=== PATIENT | female | born 1985 | race Caucasian/White ===

== ENCOUNTER 2019-05-19 12:46 | Emergency (ER) | payer SELFPAY ==
[2019-05-19 12:47] VITALS: BP 132/90; PULSE 118; RESP 18; TEMP 36.3; O2SAT 96; BMI 24.7
--- NOTE | 2019-05-19 13:17 | ED.DCSUM_ITS ---
History of Present Illness Chief Complaint: ETOH Intox Informant: Patient, Family Onset: Today Narrative: Patient here for evaluation for alcohol intoxication. She was brought down by [facility] for evaluation if she would meet criteria. However nursing obtain report stating that she did not meet criteria from [facility]. Patient has been discussing with [facility] for the past 3 days who referred her to [facility]. She states she has relapse for the past 10 days with binging, from beer to vodka. Last drink 45 minutes ago. She is here with her mother. Patient denies any current nausea or vomiting. Denies tremors or sweats. She does not feel nervous or agitated. Denies any auditory or visual hallucinations. No headache. No confusion. She does report that her blood feels like it is going to come out of her body. However does not feel anything crawling on her. She states she has had withdrawal seizures in the past, last time in June. She states that the last time she obtain help from alcohol. Prior similar symptoms: Yes Past Medical History - Allergies and Home Meds Allergies/Adverse Reactions: Allergies No Known Allergies Allergy (Verified 05/19/19 12:49) Primary Care Physician: NOT,DEFINED [NON-STAFF] - Review of Systems General: Denies: Chills, Fever, Sweats Eyes: Denies: Visual changes - bilaterally, Diplopia ENT: Denies: Rhinorrhea, Sore throat Cardiovascular: Denies: Chest pain, Palpitations Respiratory: Denies: Dyspnea, Cough, Dyspnea on exertion Gastrointestinal: Denies: Abdominal pain, Nausea, Vomiting, Diarrhea, Melena, Hematochezia Genitourinary: Denies: Dysuria, Hematuria, Frequency Musculoskeletal: Denies: Back pain, Extremity Pain Skin: Denies: Rash, Wounds Neurological: Denies: Headache, Weakness, Numbness Physical Exam Vital Signs/Narrative: Vital Signs Temp Pulse Resp BP Pulse Ox 05/19/19 12:47 97.4 F L 118 H 18 132/90 H 96 Inital Vital Signs reviewed: Yes General: Well nourished, Well developed, No Acute Distress Head: Normocephalic, Atraumatic Eyes: Perrl, EOMI ENT: Moist mucous membranes, No rhinorrhea Neck: Supple, Nontender Cardiovascular: Regular rate, Regular rhythm, No murmurs, Tachycardia Respiratory: No distress, CTA bilaterally, Chest nontender Abdomen: Soft, Nontender, Nondistended, Normal bowel sounds Back: Nontender, Normal Inspection Extremities: Nontender, No edema Skin: Normal color, No rash Neurological: Alert, Oriented x3, Cranial nerves II-XII grossly intact, Normal Strength, Normal Sensation Psychological: Normal affect, Normal Mood Diagnostic/Tx/Re-eval - Medical Decision Making Patient alert and oriented x3, she is tachycardic. She is not suicidal homicidal. See was score essentially 0. Her last treatment 45 minutes ago. She is alert talking. She is here with her mother. From discussion with nursing, she does not meet criteria for admission from evaluation by rosamaria tineo. Discussed this with mother and patient. She was given recommendations for other facilities that may be able to help her. She will call and follow-up as an outpatient. Discharge with mother. ED Disposition - Plan for ED Patient: Disposition: Home or Assisted Living Diagnosis: Alcohol dependence Instructions: Alcohol Abuse Referrals: NOT,DEFINED [NON-STAFF] - Additional Instructions: Discussed with facility that you were given information for for assistance.
[2019-05-19 13:33] VITALS: TEMP 36.1; BMI 24.8
== END 2019-05-19 13:36 | disposition home or self-care (01) ==
PROVIDERS: Emergency Provider Emergency Medicine
DX: F10.20 Alcohol dependence, uncomplicated (principal); Y90.9 Presence of alcohol in blood, level not specified
CPT/HCPCS: 99283

== ENCOUNTER 2020-10-27 10:54 | Inpatient (IN) | payer BC, MEDICAID, SELFPAY ==
[2020-10-27 10:56] VITALS: BP 151/91; PULSE 85; RESP 16; TEMP 35.7; O2SAT 97; BMI 28.1
--- NOTE | 2020-10-27 11:08 | ED.DCSUM_ITS ---
- ER Visit Summary Date of Service: 10/27/20 Chief Complaint: Need help with alcohol History of Present Illness: The patient is a [address] West. She reports that she went through rehab in April 2019. She had been clean until approximately a week ago. She been drinking 2 pints of vodka a day since then. She does report that she has a history of alcohol withdrawal and seizures from this. Her last drink was yesterday. Patient reports has been nausea and vomiting several times a day over the past week. Last vomited this morning. No blood or emesis. She denies any other complaints. Physical Examination: Vitals: Stable. Afebrile. General: Well-nourished and well-developed. Head: Normocephalic atraumatic. Neck: Supple, no lymphadenopathy. No JVD. Nontender. Cardiovascular: Regular rate and rhythm. No murmurs. Respiratory: No respiratory distress. Clear to auscultation bilaterally. Abdominal: Soft, nontender, nondistended, normal bowel sounds. No guarding, rebound, or peritoneal signs. Back: Nontender. Extremities: Nontender, no edema. Skin: Normal color, no rash. Neurologic: Alert and oriented ?3. Cranial nerves II through XII are intact. Normal strength and sensation. Psych: Normal affect. Test Results: CBC shows a white count of 16.2 with 85 segmented neutrophils and 10 lymphocytes. Chem-7 shows potassium 3.4 and calcium 7.7. LFTs show globulin 4.4. Emergency Department Course and Treatment: Patient was given a dose of Zofran IV. She was given phenobarbital p.o. She is resting more comfortably. Treatment Plan: Patient will be discussed the hospitalist admitted for further evaluation and treatment. Disposition: Admitted in stable condition. Impression: 1. Alcohol abuse. This note was generated with enrich-ination software. It may contain incorrect words, spelling, and punctuation that were not noted in review of the chart prior to signing
[2020-10-27] MEDS: Ondansetron 4 MG/2 ML Vial IV (11:35)
[2020-10-27 11:38] LABS: Absolute Lymphocyte Count 1.59 X10^3/uL (0.83-4.51); Absolute Neutrophil Count 13.8 X10^3/uL (2.0-7.7); Basophil# 0.05 X10^3/uL; Basophil% 0.3 % (0-1); Eosinophil# 0.04 X10^3/uL; Eosinophils% 0.2 % (0-5); Hematocrit 37.6 % (37-47); Hemoglobin 12.8 g/dL (12.0-15.0); Lymphocyte # 1.59 X10^3/ul (4.0); Lymphocyte % 9.8 % (19-41); Mean Corpuscular Hgb 30.3 pg (27.0-32.0); Mean Corpuscular Volume 89.1 fL (81-99); Mean Platelet Vol. 9.5 fl (6.2-12.0); Monocyte% 4.3 % (0-10); NRBC Flagged by Analyzer 0 % (0-5); Neutrophil # 13.78 X10^3/uL (2.7-7.7); Platelet Count 236 K/mm3 (150-450); RBC Distribution Width CV 13.1 % (11.6-14.6); RBC Distribution Width SD 42.5 fl (35.1-43.9); Red Blood Count 4.22 M/mm3 (4.2-5.4); White Blood Count 16.2 K/mm3 (4.4-11.0)
--- NOTE | 2020-10-27 11:44 | ED.RN ---
went over ramp program expections from pt and pt in agreement and not upset d/t having been through one before pt reported that had some vodka on way in to get me here ciwa score 4 at this time. call light and remote for tv given
[2020-10-27 11:55] LABS: ALB/GLOB Ratio 0.8 RATIO (0.9-2.4); AST(SGOT) 27 U/L (15-37); Alanine Aminotransfer ALT/SGPT 28 U/L (13-56); Albumin, Serum 3.7 g/dL (3.2-5.0); Alkaline Phosphatase 76 U/L (45-117); Anion Gap 10 (5-15); BUN 11 mg/dL (7-18); BUN/Creat Ratio 14.7 RATIO (10-20); Calcium,Total 7.7 mg/dL (8.5-10.1); Chloride 102 mmol/L (98-107); Creatinine, Serum 0.75 mg/dL (0.55-1.02); EST Glomerular Filtration Rate 94 mL/min (>60); Est Glom Filt Rate - Afr Amer 114 mL/min (>60); Estimated Creatinine Clearance 87.43 ml/min; Globulin 4.4 g/dL (2.2-4.2); Glucose 79 mg/dL (74-106); Potassium 3.4 mmol/L (3.5-5.1); Protein, Total 8.1 g/dL (6.4-8.2); Sodium Level 137 mmol/L (136-145)
[2020-10-27 12:18] LABS: Amphetamine Urine VISTA NEGATIVE (<1000 ng/mL); Barbiturate Urine VISTA NEGATIVE (< 200 ng/mL); Benzodiazepine Urine VISTA NEGATIVE (< 200 ng/mL); Cocaine Urine VISTA NEGATIVE (< 300 ng/mL); Ecstacy Urine VISTA NEGATIVE (< 500 ng/mL); Methadone Urine VISTA NEGATIVE (< 300 ng/mL); PCP Urine VISTA NEGATIVE (< 25 ng/mL); THC Urine VISTA NEGATIVE (< 50 ng/mL); Vista UDS pH Range 6
--- NOTE | 2020-10-27 12:27 | HP.PCM_ITS ---
Problem List (1) Acute alcohol withdrawal Status: Acute (2) Hypokalemia Status: Acute History of Present Illness Date of Admission: 10/27/20 Chief Complaint: Acute alcohol withdrawal syndrome for 1 day The patient is a 35 year old F with history of chronic alcohol use about 1 to 2 pints of vodka daily after she relapsed about a month ago. 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 She was admitted in [place] for acute alcohol withdrawal in April 2019 and was sober for 1 year and then she relapsed about a month ago. She has history of alcohol withdrawal seizure once. She just had 2 pints of vodka yesterday and had a small eye- taker off braker machine drink in the morning while coming to the ED. Currently, it is too early to have withdrawal symptoms but she is feeling anxious and mild restlessness but not tremors. She also had been vomiting on and off for about 1 week, mainly bilious in nature and sometimes dry heaving. No coffee-ground emesis, hematochezia or melena. She denies any previous history of GI bleed. Denies alcoholic liver disease. In the ED, her vitals are in normal range. She is started on 1 L of LR bolus and was given 1 dose of phenobarbitone and admitted on [facility]. Past Medical History Allergies No Known Allergies Allergy (Verified 10/27/20 10:55) Home Medications: Ambulatory Orders Medication Instructions Recorded Sertraline HCl [Zoloft] 100 mg PO DAILY 10/27/20 Surgical History: no surgical history Smoking Status: Current some day smoker Tobacco Use: Cigarettes, Vapor Alcohol: Heavy Drugs: None - *Family History Maternal History Items: No pertinent history - She states her mother is healthy. She does not know about her dad history Review of Systems Constitutional: Denies: Chills, Fever, Weight Change HEENT: Denies: Head Aches, Sinus Congestion, Sinus Drainage Cardiovascular: Denies: Chest Pain, Palpitations Respiratory: Denies: Cough, Shortness of breath at rest, Sputum production Gastrointestinal: Denies: Abdominal Pain, Nausea, Vomiting Genitourinary: Reports: - - Dark-colored urine and decreased frequency, increased thirst. Denies: Dysuria, Frequency, Hesitancy Gynecological: Reports: Vaginal bleeding - Currently patient is having normal menstrual bleeding started a day ago Musculoskeletal: Denies: Joint Pain, Joint Tenderness Skin: Denies: Rash, Wounds Neurological: Denies: Balance problems, Change in Speech, Slurred speech, Confusion, Focal weakness, Numbness, Tingling Psychiatric: Reports: Anxiety, Depression. Denies: Homicidal Ideations, Suicidal Ideations Hematologic/ Lymphatic: Denies: Easy Bruising, Easy Bleeding VTE Information - Inpt Only VTE Present on Admission: No VTE Mechan Device Prophylaxis: None VTE Pharm Prophylaxis ordered?: No Reason prophylaxis not ordered:: Procedure Not Indicated, Treatment Not Indicated - Physical Exam Vitals/I&O's: Vital Signs Temp Pulse Resp BP Pulse Ox 96.2 F L 85 16 151/91 H 97 10/27/20 10:56 10/27/20 10:56 10/27/20 10:56 10/27/20 10:56 10/27/20 10:56 Oxygen Delivery Method Room Air Weight: 159 lb Body Mass Index (BMI) 28.1 General: Alert, Oriented x3, Cooperative HEENT: Atraumatic, PERRLA, EOMI, Normocephalic Oral: Dry Mucosa - Oral mucosa is dry Neck: Supple, No JVD, Negative Carotid Bruits Lungs: Clear to auscultation, Normal air movement, No rhonchi, No wheeze, No rales Cardiovascular: Regular rate, Regular Rhythm, Normal S1, Normal S2, No murmurs Abdomen: Bowel Sounds Present, Soft, Non Tender, Non-Distended, No Hepato- splenomegaly Extremities: No edema, Capillary Refill Less than 3 Seconds Skin: No rashes, No breakdown Musculoskeletal: No Tenderness to Palpation of Joints or Extremities Lymphatic: No Cervical, Supraclavicular, or Inguinal Adenopathy Neurological: Cranial nerves II-XII grossly intact, Deep Tendon Reflexes 2+/4 and Symmetrical, Neuro grossly intact, Motor Exam 5/5 strength throughout Psych/Mental Status: Normal Affect, Appropriate Laboratory Results 10/27/20 11:30: WBC 16.2 H, RBC 4.22, Hgb 12.8, Hct 37.6, MCV 89.1, MCH 30.3, MCHC 34.0, RDW Std Deviation 42.5, RDW Coeff of Tony 13.1, Plt Count 236, MPV 9.5, Immature Gran % (Auto) 0.400, Neut % (Auto) 85.0 H, Lymph % (Auto) 9.8 L, Austin % (Auto) 4.3, Eos % (Auto) 0.2, Baso % (Auto) 0.3, Absolute Neuts (auto) 13.8 H, Absolute Lymphs (auto) 1.59, Nucleated RBC % 0 10/27/20 11:30: Sodium 137, Potassium 3.4 L, Chloride 102, Carbon Dioxide 25.0, Anion Gap 10, BUN 11, Creatinine 0.75, Estim Creat Clear Calc 87.43, Est GFR (MDRD) Af Amer 114, Est GFR (MDRD) Non-Af 94, BUN/Creatinine Ratio 14.7, Glucose 79, Calcium 7.7 L, Total Bilirubin 0.70, AST 27, ALT 28, Alkaline Phosphatase 76, Total Protein 8.1, Albumin 3.7, Globulin 4.4 H, Albumin/Globulin Ratio 0.8 L 10/27/20 11:30: Ethyl Alcohol Pending 10/27/20 11:30: Serum , Qual Pending 10/27/20 11:48: Urine Opiates Screen NEGATIVE, Urine Methadone Screen NEGATIVE, Ur Barbiturates Screen NEGATIVE, Ur Phencyclidine Scrn NEGATIVE, Ur Amphetamines Screen NEGATIVE, U Methamphetamin-MDMA NEGATIVE, U Benzodiazepines Scrn NEGATIVE, Urine Cocaine Screen NEGATIVE, U Cannabinoids Screen NEGATIVE, Ur Drug Screen Comment Current Medications Lactated Ringer's () 1,000 mls @ 999 mls/hr IV .Q1H1M [facility] Stop: 10/27/20 13:20 Assessment/Plan All Active Problems Acute alcohol withdrawal (Acute) Hypokalemia (Acute) This is 35 female with history of chronic alcohol use and dependence and relapse admitted with medical stabilization for acute alcohol withdrawal syndrome. 1. Acute alcohol intoxication with history of chronic alcohol use, dependence, relapse and tolerance: Patient is admitted to MedSurg floor. Patient is clinically dehydrated. Continue LR 1 L bolus ordered in ED and then 125 mill per hour for 1 L and then reevaluate. Started on standard alcohol medical stabilization ordered safe with scheduled and then taper phenobarbitone and thiamine, folic acid, gabapentin, hydroxyzine, Imodium and other supportive medications as needed. Monitor intake and output. Alcohol level 174 suggestive of alcohol intoxication 2. History of chronic alcohol use and dependence, with mild alcohol withdrawal syndrome: Patient has history of alcohol withdrawal seizure and currently having mild withdrawal symptoms with anxiety and depression. 3. VT prophylaxis: Low risk. Early ambulation encouraged. Inpatient E&M: 29212 Init Hosp L3
--- NOTE | 2020-10-27 12:35 | ED.RN ---
per patient okay to give information to boyfriend wing conner at [phone]. he is also listed as emergency contact.
[2020-10-27 12:36] LABS: Internal QC Validated? YES +Cl - CLEAR BKGD; Pregnancy, Serum, hCG Quali. NEGATIVE Negative
[2020-10-27 12:58] VITALS: BMI 28.1; BMI 28.2
[2020-10-27 13:00] VITALS: BP 128/84; PULSE 99; RESP 16; TEMP 36.6; O2SAT 100
[2020-10-27 13:07] LABS: International Normalized Ratio 1.1; Prothrombin Time (Protime)PT. 13.3 SECONDS (11.7-14.9)
[2020-10-27] MEDS: Phenobarbital 32.4 MG Tablet 97.2 MG PO (13:07)
[2020-10-27] MEDS: Lactated Ringers 1,000 ML 999 ML IV (13:11)
[2020-10-27] MEDS: Pantoprazole Sodium 40 MG Tablet PO (13:46)
[2020-10-27] MEDS: Lactated Ringers 1,000 ML 125 ML IV (14:17)
[2020-10-27] MEDS: Ibuprofen 400 MG Tablet PO (16:09)
[2020-10-27] MEDS: Ondansetron 8 MG Tablet PO (16:48)
[2020-10-27] MEDS: hydrOXYzine PAM 25 MG Capsule 50 MG PO (16:52)
[2020-10-27] MEDS: Phenobarbital 32.4 MG Tablet 64.8 MG PO ×2 (16:52→21:42)
[2020-10-27] MEDS: Dicyclomine 10 MG Capsule 20 MG PO (17:01)
[2020-10-27] MEDS: Gabapentin 300 MG Capsule PO (17:01)
[2020-10-27 17:11] VITALS: BP 125/85; PULSE 93; RESP 18; TEMP 36.3; O2SAT 98
[2020-10-27 17:14] VITALS: PULSE 93; O2SAT 98
[2020-10-27] MEDS: Metoclopramide 10 MG/2 ML Vial IV (18:25)
--- NOTE | 2020-10-27 18:31 | NURSING ---
pt with less tremoring now and anxiety but still really nauseated. dr. nassar paged and new order for reglan ordered and given.
--- NOTE | 2020-10-27 20:06 | NURSING ---
Covid 19 emergency charting in effect.
[2020-10-27 21:33] VITALS: BP 123/80; PULSE 83; RESP 18; TEMP 36.6; O2SAT 98
[2020-10-28 01:11] VITALS: BP 126/77; PULSE 85; RESP 18; TEMP 36.7; O2SAT 99
[2020-10-28] MEDS: Phenobarbital 32.4 MG Tablet 64.8 MG PO ×6 (01:16→21:55)
[2020-10-28] MEDS: 0.9% Saline Lock 10 ML Syringe IV (01:16)
[2020-10-28] MEDS: Metoclopramide 10 MG/2 ML Vial 5 MG IV (01:17)
[2020-10-28 05:27] VITALS: BP 119/76; PULSE 85; RESP 18; TEMP 36.6; O2SAT 97
[2020-10-28] MEDS: Folic Acid 1 MG Tablet PO (07:38)
[2020-10-28] MEDS: Thiamine Hydrochloride 100 MG Tablet PO (07:38)
[2020-10-28 10:06] VITALS: BP 115/76; PULSE 72; RESP 16; TEMP 36.7; O2SAT 96
[2020-10-28] MEDS: Pantoprazole Sodium 40 MG Tablet PO (10:12)
--- NOTE | 2020-10-28 13:45 | PCM.PN.HOSP ---
Patient Problems: Active and Suspected Problems Acute alcohol withdrawal (Acute) Hypokalemia (Acute) Reason for Visit: Follow-up for acute alcohol withdrawal. Objective: Patient had nausea and vomiting yesterday afternoon and evening time. Controlled with Reglan. Patient can eat and drink now. Does not have obvious withdrawal symptoms. Mild anxiety. Physical exam General: Alert, Oriented x3, Cooperative HEENT: Atraumatic, PERRLA, EOMI, Normocephalic Oral: No Gingival or Mucosal Lesions/ Ulcerations Neck: Supple, No JVD, Negative Carotid Bruits Lungs: Air entry diminished in bilateral lung bases. No crepitation/rhonchi Cardiovascular: Regular rate, Regular Rhythm, Normal S1, Normal S2, No murmurs Abdomen: Bowel Sounds Present, Soft, Non Tender, Non-Distended : No renal angle tenderness. No suprapubic tenderness. Extremities: No edema, Capillary Refill Less than 3 Seconds Skin: No rashes, No breakdown Musculoskeletal: No Tenderness to Palpation of Joints or Extremities Neurological: Cranial nerves II-XII grossly intact, Deep Tendon Reflexes 2+/4 and Symmetrical, Neuro grossly intact Psych/Mental Status: Normal Affect, Appropriate. Vitals/I&O's: Vital Signs Temp Pulse Resp BP Pulse Ox 98.0 F 72 16 115/76 96 10/28/20 10:06 10/28/20 10:06 10/28/20 10:06 10/28/20 10:10/28/20 10:06 Oxygen Delivery Method Room Air Weight: 158 lb 15.993 oz Body Mass Index (BMI) 28.1 Intake and Output for Last 24 Hours 10/26/20 10/27/20 10/28/20 23:59 23:59 23:59 Intake Total 2900 / 2900 680 / 680 Output Total 650 / 650 Balance 2250 / 2250 680 / 680 Current Medications Acetaminophen (Acetaminophen 500 Mg Tablet) 500 mg PO Q4H PRN PRN PRN Reason: Temp > 100.4 F Al Hydroxide/Mg Hydroxide (Mag Hydrox/Al Hydrox/Simeth 30 Ml Udc) 30 ml PO Q6H PRN PRN PRN Reason: dyspesia Bisacodyl (Bisacodyl 10 Mg Suppository) 10 mg RECTAL DAILY PRN PRN Reason: Constipation Dicyclomine HCl (Dicyclomine 10 Mg Capsule) 20 mg PO Q6H PRN PRN PRN Reason: abdominal discomfort Last Admin: 10/27/20 17:01 Dose: 20 mg Documented by: Folic Acid (Folic Acid 1 Mg Tablet) 1 mg PO DAILY@0800 [facility] Last Admin: 10/28/20 07:38 Dose: 1 mg Documented by: Gabapentin (Gabapentin 300 Mg Capsule) 300 mg PO Q8H PRN PRN PRN Reason: moderate to severe anxiety Last Admin: 10/27/20 17:01 Dose: 300 mg Documented by: Hydroxyzine Pamoate (Hydroxyzine Haylee 25 Mg Capsule) 50 mg PO Q4H PRN PRN PRN Reason: mild anxiety Last Admin: 10/27/20 16:52 Dose: 50 mg Documented by: Ibuprofen (Ibuprofen 400 Mg Tablet) 400 mg PO Q8H PRN PRN PRN Reason: Pain Score 1-10 Last Admin: 10/27/20 16:09 Dose: 400 mg Documented by: Loperamide HCl (Loperamide 2 Mg Capsule) 2 mg PO Q4H PRN PRN PRN Reason: LOOSE STOOLS Metoclopramide HCl (Metoclopramide 10 Mg/2 Ml Vial) 5 mg IV Q6H PRN PRN PRN Reason: NAUSEA/VOMITING Last Admin: 10/28/20 01:17 Dose: 5 mg Documented by: Nicotine (Nicotine 21 Mg Patch) 21 mg TD DAILY [facility] Last Admin: 10/28/20 10:12 Dose: 21 mg Documented by: Ondansetron HCl (Ondansetron 8 Mg Tablet) 8 mg PO Q8H PRN PRN PRN Reason: NAUSEA Last Admin: 10/27/20 16:48 Dose: 8 mg Documented by: Pantoprazole Sodium (Pantoprazole Sodium 40 Mg Tablet) 40 mg PO DAILY [facility] Last Admin: 10/28/20 10:12 Dose: 40 mg Documented by: Phenobarbital (Phenobarbital 32.4 Mg Tablet) 97.2 mg PO Q4H [facility]; Taper Stop: 10/31/20 21:59 Last Admin: 10/28/20 10:12 Dose: 97.2 mg Documented by: Senna (Senna Tablet) 2 tablet PO QHS PRN PRN PRN Reason: Constipation Sodium Chloride (0.9% Saline Lock 10 Ml Syringe) 10 - 40 ml IV UD PRN PRN Reason: SALINE FLUSH Last Admin: 10/28/20 01:16 Dose: 10 ml Documented by: Thiamine HCl (Thiamine Hydrochloride 100 Mg Tablet) 100 mg PO DAILYCM CRUZ Last Admin: 10/28/20 07:38 Dose: 100 mg Documented by: Trazodone HCl (Trazodone 100 Mg Tablet) 100 mg PO QHS PRN PRN PRN Reason: INSOMNIA STROKE Vital Signs/Narrative: Vital Signs Temp Pulse Resp BP Pulse Ox 10/28/20 10:06 98.0 F 72 16 115/76 96 Medical Necessity - Tobacco Use Smoking Status: Current some day smoker Tobacco Use: Cigarettes, Vapor Assessment/Plan All Active Problems Acute alcohol withdrawal (Acute) Hypokalemia (Acute) This is 35 female with history of chronic alcohol use and dependence and relapse admitted with medical stabilization for acute alcohol withdrawal syndrome. 1. Acute alcohol intoxication with history of chronic alcohol use, dependence, relapse and tolerance: Patient is admitted to MedSurg floor. Patient is clinically dehydrated. Continue LR 1 L bolus ordered in ED and then 125 mill per hour for 1 L and then reevaluate. Started on standard alcohol medical stabilization ordered safe with scheduled and then taper phenobarbitone and thiamine, folic acid, gabapentin, hydroxyzine, Imodium and other supportive medications as needed. Monitor intake and output. Alcohol level 174 suggestive of alcohol intoxication 1/2: Patient nausea and vomiting are controlled. INR 1.1. Serum test negative. Continue phenobarbital treatment regimen as mentioned above. 2. History of chronic alcohol use and dependence, with mild alcohol withdrawal syndrome: Patient has history of alcohol withdrawal seizure and currently having mild withdrawal symptoms with anxiety and depression. 3. VT prophylaxis: Low risk. Early ambulation encouraged. Inpatient E&M: 04298 Subs Hosp L2
[2020-10-28 14:02] VITALS: BP 130/80; PULSE 87; RESP 16; TEMP 36.8; O2SAT 96
[2020-10-28 14:07] VITALS: BP 130/80; PULSE 87; RESP 16; TEMP 36.8; O2SAT 95
[2020-10-28] MEDS: Gabapentin 300 MG Capsule PO (14:25)
[2020-10-28 19:47] VITALS: BP 130/93; PULSE 91; RESP 16; TEMP 36.8; O2SAT 98
[2020-10-29 02:02] VITALS: BP 108/80; PULSE 79; RESP 16; TEMP 36.6; O2SAT 99
[2020-10-29] MEDS: Phenobarbital 32.4 MG Tablet 64.8 MG PO ×3 (02:04→09:19)
[2020-10-29] MEDS: Folic Acid 1 MG Tablet PO (09:14)
[2020-10-29] MEDS: Thiamine Hydrochloride 100 MG Tablet PO (09:14)
[2020-10-29] MEDS: Pantoprazole Sodium 40 MG Tablet PO (09:15)
[2020-10-29 09:16] VITALS: BP 108/79; PULSE 76; RESP 18; TEMP 36.7; O2SAT 97
--- NOTE | 2020-10-29 10:08 | DCINST_ITS ---
- Discharge Diagnoses Current Active Problems: Current Active and Chronic Problems Acute alcohol withdrawal (Acute) Hypokalemia (Acute) You will use the following diet at home:: Regular Your food should be the consistency of: Regular Discharge Activity: May Not Drive, May not drive while taking narcotic pain medications. Call your doctor if you observe: Fever of 101 or Higher, Coldness, Increased Pain, Numbness or Tingling, Change in Color, Inability to urinate, Inability to have a bowel movement, Using more than one pad per hour, Shortness of breath, Dizziness, Fainting spells, Swelling in the ankles, Chest pain, Prolonged hiccoughing, Increased palpitations (irregular heartbeat), Calf discomfort, Uncontrolled pain Allergies/Adverse Reactions: Allergies No Known Allergies Allergy (Verified 10/27/20 10:55) Medications to take at Discharge Sertraline HCl [Zoloft] 100 mg PO DAILY 10/27/20 Folic Acid 1 mg PO DAILY@0800 #30 tab 10/29/20 Nicotine [Nicoderm Cq] 21 mg TD DAILY #30 patch 10/29/20 Pantoprazole Sodium [Protonix] 40 mg PO DAILY #30 tab 10/29/20 Thiamine Hydrochloride [Vitamin B1] 100 mg PO DAILYCM #30 tab 10/29/20 The following prescriptions were given: Folic Acid 1 mg PO DAILY@0800 #30 tablet Nicotine [Nicoderm Cq] 21 mg TD DAILY #30 patch Pantoprazole Sodium [Protonix] 40 mg PO DAILY #30 tablet Thiamine Hydrochloride [Vitamin B1] 100 mg PO DAILYCM #30 tablet Primary Care Physician: CASSIA ARAUJO [Other] Please follow up with your Primary Care Physician in: in 1-2 weeks Test Results: Test results from this visit will be discussed in further detail at your follow- up appointment, if applicable.
--- NOTE | 2020-10-29 10:13 | DS.PCM_ITS ---
Discharge Date and Diagnosis - Problem List Patient Problems: Active and Suspected Problems Acute alcohol withdrawal (Acute) Hypokalemia (Acute) Date of Admission: 10/27/20 Date of Discharge: 10/29/20 - Primary Discharge Diagnosis Acute Problems: Active Problems Acute alcohol withdrawal (Acute) Hypokalemia (Acute) Hospital Course and Treatment Summary of Care Provided: [] This is 35 female with history of chronic alcohol use and dependence and relapse admitted with medical stabilization for acute alcohol withdrawal syndrome. 1. Acute alcohol intoxication with history of chronic alcohol use, dependence, relapse and tolerance: Patient is admitted to MedSurg floor. Patient is clinically dehydrated. Continue LR 1 L bolus ordered in ED and then 125 mill per hour for 1 L and then reevaluate. Started on standard alcohol medical stabilization ordered safe with scheduled and then taper phenobarbitone and thiamine, folic acid, gabapentin, hydroxyzine, Imodium and other supportive medications as needed. Monitor intake and output. Alcohol level 174 suggestive of alcohol intoxication. Patient has mild leukocytosis probably reactive to t he alcohol intoxication. No signs or symptoms suggestive of infection. Patient nausea and vomiting was controlled. INR 1.1. Serum test negative. The patient follows Cassia Roy presumably [facility] under Dr. Justin Cazares. She manages her [facility] shot and alcohol rehab program. 2. History of chronic alcohol use and dependence, with mild alcohol withdrawal syndrome: Patient has history of alcohol withdrawal seizure and currently having mild withdrawal symptoms with anxiety and depression. 3. VT prophylaxis: Low risk. Early ambulation encouraged. Discharge medication reconciliation done. Discharge follow-up instructions completed. Discharge process discussed with the patient and all questions were answered to patient's satisfaction. Prescriptions for thiamine, folic acid, nicotine and Protonix sent to the patient's pharmacy. Total time spent, exact 35 minutes on discharge meds reconciliation, examination, coordination of care with nurses and ancillary staff, review of imaging and blood test and discussion with the patient on follow-up instructions Patient Problems: Active and Suspected Problems Acute alcohol withdrawal (Acute) Hypokalemia (Acute) Objective: Patient heart rate and blood pressure are in normal range. No shaking/tremor. No nausea vomiting or diarrhea. Afebrile Physical exam General: Alert, Oriented x3, Cooperative HEENT: Atraumatic, PERRLA, EOMI, Normocephalic Oral: No Gingival or Mucosal Lesions/ Ulcerations Neck: Supple, No JVD, Negative Carotid Bruits Lungs: Air entry equal in bilateral lung bases. No crepitation/rhonchi Cardiovascular: Regular rate, Regular Rhythm, Normal S1, Normal S2, No murmurs Abdomen: Bowel Sounds Present, Soft, Non Tender, Non-Distended : No renal angle tenderness. No suprapubic tenderness. Extremities: No edema, Capillary Refill Less than 3 Seconds Skin: No rashes, No breakdown Musculoskeletal: No Tenderness to Palpation of Joints or Extremities Neurological: Cranial nerves II-XII grossly intact, Deep Tendon Reflexes 2+/4 and Symmetrical, Neuro grossly intact Psych/Mental Status: Normal Affect, Appropriate. - Physical Exam Vitals/I&O's: Vital Signs Temp Pulse Resp BP Pulse Ox 98.0 F 76 18 108/79 97 10/29/20 09:16 10/29/20 09:16 10/29/20 09:16 10/29/20 09:16 10/29/20 09:16 Oxygen Delivery Method Room Air Weight: 158 lb 15.993 oz Body Mass Index (BMI) 28.1 Intake and Output for Last 24 Hours 10/27/20 10/28/20 10/29/20 23:59 23:59 23:59 Intake Total 2900 / 2900 1680 / 1680 500 / 500 Output Total 650 / 650 Balance 2250 / 2250 1680 / 1680 500 / 500 Current Medications Acetaminophen (Acetaminophen 500 Mg Tablet) 500 mg PO Q4H PRN PRN PRN Reason: Temp > 100.4 F Al Hydroxide/Mg Hydroxide (Mag Hydrox/Al Hydrox/Simeth 30 Ml Udc) 30 ml PO Q6H PRN PRN PRN Reason: dyspesia Bisacodyl (Bisacodyl 10 Mg Suppository) 10 mg RECTAL DAILY PRN PRN Reason: Constipation Dicyclomine HCl (Dicyclomine 10 Mg Capsule) 20 mg PO Q6H PRN PRN PRN Reason: abdominal discomfort Last Admin: 10/27/20 17:01 Dose: 20 mg Documented by: Folic Acid (Folic Acid 1 Mg Tablet) 1 mg PO DAILY@0800 CRUZ Last Admin: 10/29/20 09:14 Dose: 1 mg Documented by: Gabapentin (Gabapentin 300 Mg Capsule) 300 mg PO Q8H PRN PRN PRN Reason: moderate to severe anxiety Last Admin: 10/28/20 14:25 Dose: 300 mg Documented by: Hydroxyzine Pamoate (Hydroxyzine Haylee 25 Mg Capsule) 50 mg PO Q4H PRN PRN PRN Reason: mild anxiety Last Admin: 10/27/20 16:52 Dose: 50 mg Documented by: Ibuprofen (Ibuprofen 400 Mg Tablet) 400 mg PO Q8H PRN PRN PRN Reason: Pain Score 1-10 Last Admin: 10/27/20 16:09 Dose: 400 mg Documented by: Loperamide HCl (Loperamide 2 Mg Capsule) 2 mg PO Q4H PRN PRN PRN Reason: LOOSE STOOLS Metoclopramide HCl (Metoclopramide 10 Mg/2 Ml Vial) 5 mg IV Q6H PRN PRN PRN Reason: NAUSEA/VOMITING Last Admin: 10/28/20 01:17 Dose: 5 mg Documented by: Nicotine (Nicotine 21 Mg Patch) [address] [facility] Last Admin: 10/29/20 09:14 Dose: 21 mg Documented by: Ondansetron HCl (Ondansetron 8 Mg Tablet) 8 mg PO Q8H PRN PRN PRN Reason: NAUSEA Last Admin: 10/27/20 16:48 Dose: 8 mg Documented by: Pantoprazole Sodium (Pantoprazole Sodium 40 Mg Tablet) [address] [facility] Last Admin: 10/29/20 09:15 Dose: 40 mg Documented by: Phenobarbital (Phenobarbital 32.4 Mg Tablet) 64.[address] [facility]; Taper Stop: 10/31/20 21:59 Last Admin: 10/29/20 09:19 Dose: 64.8 mg Documented by: Senna (Senna Tablet) 2 tablet PO QHS PRN PRN PRN Reason: Constipation Sodium Chloride (0.9% Saline Lock 10 Ml Syringe) 10 - 40 ml IV UD PRN PRN Reason: SALINE FLUSH Last Admin: 10/28/20 01:16 Dose: 10 ml Documented by: Thiamine HCl ([facility] Hydrochloride 100 Mg Tablet) [facility] Last Admin: 10/29/20 09:14 Dose: 100 mg Documented by: Trazodone HCl (Trazodone 100 Mg Tablet) 100 mg PO QHS PRN PRN PRN Reason: INSOMNIA Discharge Activity: May Not Drive, May not drive while taking narcotic pain medications. Call your doctor if you observe: Fever of 101 or Higher, Coldness, Increased Pain, Numbness or Tingling, Change in Color, Inability to urinate, Inability to have a bowel movement, Using more than one pad per hour, Shortness of breath, Dizziness, Fainting spells, Swelling in the ankles, Chest pain, Prolonged hiccoughing, Increased palpitations (irregular heartbeat), Calf discomfort, Uncontrolled pain Home Medications: Medications to take at Discharge Sertraline HCl [Zoloft] 100 mg PO DAILY 10/27/20 Folic Acid 1 mg PO DAILY@0800 #30 tab 10/29/20 Nicotine [Nicoderm Cq] 21 mg TD DAILY #30 patch 10/29/20 Pantoprazole Sodium [Protonix] 40 mg PO DAILY #30 tab 10/29/20 Thiamine Hydrochloride [Vitamin B1] 100 mg PO DAILYCM #30 tab 10/29/20 Following Prescriptions Were Given to Patient: Folic Acid 1 mg PO DAILY@0800 #30 tab [id number] Nicotine [Nicoderm Cq] 21 mg TD DAILY #30 patch Transmission Status: [id number] Pantoprazole Sodium [Protonix] 40 mg PO DAILY #30 tab Transmission Status: Received by [id number] Thiamine Hydrochloride [Vitamin B1] 100 mg PO DAILYCM #30 tab Transmission Status: [id number] Primary Care Physician: CASSIA ROY [Other] Please follow up with your Primary Care Physician in: in 1-2 weeks Medical Necessity - Tobacco Use Smoking Status: Current some day smoker Tobacco Use: Cigarettes, Vapor Meaningful Use Info Meaningful Use Diagnoses (Choose all that apply): None applicable Inpatient E&M: 35699 [facility]
[2020-10-29 10:47] VITALS: BP 108/79; PULSE 76; RESP 16; TEMP 36.7; O2SAT 98
== END 2020-10-29 11:41 | disposition home or self-care (01) | DRG 897 ==
LOC: ED 12:23 → MS3 15:19
PROVIDERS: Admitting Provider Internal Medicine; Emergency Provider Emergency Medicine; Visit Provider Internal Medicine
DX: F10.239 Alcohol dependence with withdrawal, unspecified (principal); Y90.6 Blood alcohol level of 120-199 mg/100 ml; E87.6 Hypokalemia; E86.0 Dehydration; F17.210 Nicotine dependence, cigarettes, uncomplicated; F17.290 Nicotine dependence, other tobacco product, uncomplicated
CPT/HCPCS: 80053; 80307; 82077; 84703; 85025; 85610; 99284; 99406; J7120; A4216; J2405

== ENCOUNTER 2021-03-12 19:52 | Inpatient (IN) | payer BC, MEDICAID, SELFPAY ==
[2020-10-27 12:58] VITALS: BMI 28.1
[2021-03-12 19:54] VITALS: BP 128/84; PULSE 91; RESP 16; TEMP 36.6; O2SAT 96; BMI 27.6
[2021-03-12 20:21] VITALS: BP 128/84; PULSE 91; RESP 16; TEMP 36.6; O2SAT 96
--- NOTE | 2021-03-12 20:45 | CM.ED ---
SOCIAL WORK Referral Source: Dr. Campbell Reason for Consult: Substance Abuse-requesting detox from alcohol Met with patient in room. Introduced role and reason for referral. Patient reports lives home alone in [place], [place]. Patient states came to [place] as she has been through detox here in the past. Patient states had been sober for a year and a half and then relapsed. Patient states has been drinking off and on. Patient states most recently has been consistently drinking for the last 4 weeks and wants help. Patient reports depression. When asked about suicidal ideation patient states only when I'm drinking. Patient denies any current suicidal thoughts, plans or intent. Patient states, I have too much to live for. I wouldn't do that to my mom. Education provided on RAMP. Discussed rules of RAMP and agreement. Patient denies any questions or concerns. Patient provided with warm blanket, crackers and water. Emotional support provided. Will update [facility] Treatment Navigator upon admission. Plan: Admit to [facility] Jany Peña, [employer] SOLUTION ARCHITECT, CYTOTECHNOLOGIST
[2021-03-12 20:54] LABS: Absolute Lymphocyte Count 3.01 X10^3/uL (0.83-4.51); Absolute Neutrophil Count 3.9 X10^3/uL (2.0-7.7); Basophil# 0.04 X10^3/uL; Basophil% 0.5 % (0-1); Eosinophil# 0.03 X10^3/uL; Eosinophils% 0.4 % (0-5); Hematocrit 42.2 % (37-47); Hemoglobin 14.5 g/dL (12.0-15.0); Lymphocyte # 3.01 X10^3/ul (0.83-4.51); Lymphocyte % 39.2 % (19-41); Mean Corp Hgb Conc 34.4 g/dL (32-36); Mean Corpuscular Hgb 31.2 pg (27.0-32.0); Mean Corpuscular Volume 90.8 fL (81-99); Mean Platelet Vol. 9.1 fl (6.2-12.0); Monocyte# 0.71 X10^3/uL; Monocyte% 9.2 % (0-10); NRBC Flagged by Analyzer 0 % (0-5); Neutrophil # 3.88 X10^3/uL (2.7-7.7); Neutrophil % 50.6 % (47-70); Platelet Count 316 K/mm3 (150-450); RBC Distribution Width CV 14.4 % (11.6-14.6); RBC Distribution Width SD 47.9 fl (35.1-43.9); Red Blood Count 4.65 M/mm3 (4.2-5.4); White Blood Count 7.7 K/mm3 (4.4-11.0)
[2021-03-12 21:14] LABS: Internal QC Validated? YES +Cl - CLEAR BKGD; Pregnancy, Serum, hCG Quali. NEGATIVE Negative
[2021-03-12 21:17] LABS: ALB/GLOB Ratio 0.8 RATIO (0.9-2.4); AST(SGOT) 52 U/L (15-37); Alanine Aminotransfer ALT/SGPT 47 U/L (13-56); Albumin, Serum 3.6 g/dL (3.2-5.0); Alkaline Phosphatase 91 U/L (45-117); Anion Gap 7 (5-15); BUN 8 mg/dL (7-18); BUN/Creat Ratio 9.5 RATIO (10-20); Calcium,Total 8.2 mg/dL (8.5-10.1); Chloride 104 mmol/L (98-107); Creatinine, Serum 0.85 mg/dL (0.55-1.02); EST Glomerular Filtration Rate 82 mL/min (>60); Est Glom Filt Rate - Afr Amer 99 mL/min (>60); Estimated Creatinine Clearance 77.14 ml/min; Globulin 4.6 g/dL (2.2-4.2); Glucose 113 mg/dL (74-106); Potassium 3.6 mmol/L (3.5-5.1); Protein, Total 8.2 g/dL (6.4-8.2); Sodium Level 140 mmol/L (136-145)
--- NOTE | 2021-03-12 21:51 | CM.ED ---
SOCIAL WORK Call to [facility] Treatment Navigator, Wolfgang to update on patient's admission to [facility]. Jany Peña, COLOR ADVISER, PEANUT BUTTER MAKER
[2021-03-12 21:52] LABS: Amphetamine Urine VISTA NEGATIVE (<1000 ng/mL); Barbiturate Urine VISTA NEGATIVE (< 200 ng/mL); Benzodiazepine Urine VISTA NEGATIVE (< 200 ng/mL); Cocaine Urine VISTA NEGATIVE (< 300 ng/mL); Ecstacy Urine VISTA NEGATIVE (< 500 ng/mL); Methadone Urine VISTA NEGATIVE (< 300 ng/mL); PCP Urine VISTA NEGATIVE (< 25 ng/mL); THC Urine VISTA NEGATIVE (< 50 ng/mL); Vista UDS pH Range 7
--- NOTE | 2021-03-12 22:07 | EX.ED.DYSGE1 ---
HPI History of Present Illness Chief Complaint: ETOH Intox Narrative Narrative: 35-year-old female presenting requesting detox from alcohol. Patient states that she was previously sober for 1.5 years. She states she relapsed 2 weeks ago and has been drinking heavily since that time. She denies drug use. She has history of alcohol withdrawal with seizures in the past. She states her last drink was 4 PM. Prior similar symptoms: Yes Recent Illness/Hospitalization: No PFSH PFSH Medical History (Updated 03/12/21 @ 22:[address] Dara Campbell MD) Depression Home Medications sertraline 100 mg PO DAILY 10/27/20 [History Last Taken Unknown] Allergy/AdvReac Type Severity Reaction Status Date / Time No Known Allergies Allergy Verified 03/12/21 19:56 Social History (System 12/13/20 @ 10:12 by Patricio Bragg) Smoking Status: Current some day smoker ROS ROS ED Constitutional Constitutional ED: Denies fever(s) Eyes Eyes: Denies change in vision ENT ENT ED: Denies rhinorrhea or sore throat Cardiovascular Cardiovascular: Denies chest pain or palpitations Respiratory/Chest Respiratory/Chest: Denies cough or dyspnea Gastrointestinal Gastrointestinal: Denies abdominal pain, diarrhea, nausea or vomiting Genitourinary Genitourinary ED: Denies dysuria Musculoskeletal Musculoskeletal: Denies myalgias Integumentary Denies rash Neurologic Neurologic: Denies headache(s) Psychiatric Psychiatric: Denies suicidal thoughts EXAM Physical Exam Const Vital Signs: 03/12/21 19:54 03/12/21 20:21 Temperature 97.8 F 97.8 F Temperature Source Temporal Oral Pulse Rate 91 91 Respiratory Rate 16 16 Blood Pressure 128/84 H 128/84 H Blood Pressure Mean 98 98 Blood Pressure Source Monitor Blood Pressure Position Sitting Blood Pressure Location Right Arm Pulse Ox 96 96 Oxygen Delivery Method Room Air Room Air Positive well nourished and well developed General Appearance ED: well developed HEENT Reports normocephalic and head/scalp atraumatic Eyes PERRL and EOMs intact bilaterally Neck supple General: Negative for tenderness Chest Wall inspection of chest normal Resp normal respiratory effort and clear to auscultation bilaterally Cardio regular rate and regular rhythm GI non-tender and non-distended Palpation: soft; Negative for guarding or rebound tenderness present no CVA tenderness Extremity normal to inspection Neuro oriented x3 Sensorium / Orientation: alert Psych mental status grossly normal MDM MDM MDM Narrative Medical decision making narrative: Alcohol level 355. Tox is negative. negative. Patient would like help with alcohol detox. Will discuss with hospitalist for admission. Lab Data Attestation: I reviewed the patient's lab results. Labs: Laboratory Results - last 24 hr 03/12/21 03/12/21 03/12/21 20:34 20:34 20:34 WBC 7.7 RBC 4.65 Hgb 14.5 Hct 42.2 MCV 90.8 MCH 31.2 MCHC 34.4 RDW Std Deviation 47.9 H RDW Coeff of Tony 14.4 Plt Count 316 MPV 9.1 Immature Gran % (Auto) 0.100 Neut % (Auto) 50.6 Lymph % (Auto) 39.2 [place] % (Auto) 9.2 Eos % (Auto) 0.4 Baso % (Auto) 0.5 Absolute Neuts (auto) 3.9 Absolute Lymphs (auto) 3.01 Nucleated RBC % 0 Sodium 140 Potassium 3.6 Chloride 104 Carbon Dioxide 29.0 Anion Gap 7 BUN 8 Creatinine 0.85 Estim Creat Clear Calc 77.14 Est GFR (MDRD) Af Amer 99 Est GFR (MDRD) Non-Af 82 BUN/Creatinine Ratio 9.5 L Glucose 113 H Calcium 8.2 L Total Bilirubin 0.50 AST 52 H ALT 47 Alkaline Phosphatase 91 Total Protein 8.2 Albumin 3.6 Globulin 4.6 H Albumin/Globulin Ratio 0.8 L Serum , Qual Urine Opiates Screen Urine Methadone Screen Ur Barbiturates Screen Ur Phencyclidine Scrn Ur Amphetamines Screen U Methamphetamin-MDMA U Benzodiazepines Scrn Urine Cocaine Screen U Cannabinoids Screen Ur Drug Screen Comment Ethyl Alcohol 355.0 H* 03/12/21 03/12/21 20:34 21:30 WBC RBC Hgb Hct MCV MCH MCHC RDW Std Deviation RDW Coeff of Tony Plt Count MPV Immature Gran % (Auto) Neut % (Auto) Lymph % (Auto) [place] % (Auto) Eos % (Auto) Baso % (Auto) Absolute Neuts (auto) Absolute Lymphs (auto) Nucleated RBC % Sodium Potassium Chloride Carbon Dioxide Anion Gap BUN Creatinine Estim Creat Clear Calc Est GFR (MDRD) Af Amer Est GFR (MDRD) Non-Af BUN/Creatinine Ratio Glucose Calcium Total Bilirubin AST ALT Alkaline Phosphatase Total Protein Albumin Globulin Albumin/Globulin Ratio Serum , Qual NEGATIVE Urine Opiates Screen NEGATIVE Urine Methadone Screen NEGATIVE Ur Barbiturates Screen NEGATIVE Ur Phencyclidine Scrn NEGATIVE Ur Amphetamines Screen NEGATIVE U Methamphetamin-MDMA NEGATIVE U Benzodiazepines Scrn NEGATIVE Urine Cocaine Screen NEGATIVE U Cannabinoids Screen NEGATIVE Ur Drug Screen Comment Ethyl Alcohol Discharge Plan Triage Chief Complaint: ETOH Intox ED Provider: Dara Campbell Dx/Rx/DC Orders Clinical Impression: Alcohol dependence, Alcohol intoxication Prescriptions: No Action sertraline 100 MG tablet 100 mg PO DAILY RF: 0 Referrals: CASSIA ARAUJO [Other] Disposition Disposition: Acute Care Hospital [facility]
--- NOTE | 2021-03-12 22:31 | HP.PCM_ITS ---
HPI - General General Date of Admission: 03/12/21 HPI Narrative JUDITH BLOCK, is a 35 F who presents tonight for detoxification from alcohol. Patient states that she was sober for approximately 1-1/2 years before relapsing 4 weeks ago following a rough break-up. Patient alcohol level in ER was 355. Patient states that her daily alcohol intake varies but is usually around 3-5 8% beers. Patient denies any medical history. [facility] Medical History (Updated 03/12/21 @ 22:36 by Damaris Pedraza NP-C) Depression Home Medications sertraline 100 mg PO DAILY 10/27/20 [History Last Taken Unknown] Allergy/AdvReac Type Severity Reaction Status Date / Time No Known Allergies Allergy Verified 03/12/21 19:56 Social History Smoking Status: Current some day smoker ROS Constitutional Constitutional: Denies anorexia, chills or fatigue Cardiovascular Cardiovascular: Denies chest pain, edema or palpitations Respiratory/Chest Respiratory/Chest: Denies cough, shortness of breath at rest or shortness of breath with exertion Gastrointestinal Gastrointestinal: Denies abdominal pain, constipation or diarrhea Genitourinary Genitourinary: Denies dysuria or hematuria Musculoskeletal Musculoskeletal: Denies back pain, extremity pain or joint pain Integumentary Integumentary: Denies dry skin or jaundice Neurologic Neurologic: Denies abnormal gait, abnormal speech, confusion or dizziness Psychiatric Psychiatric: Reports anxiety and depression Endocrine Endocrinology: Denies change in body appearance Hematologic/Lymphatic Hematologic/Lymphatic: Denies easy bleeding or easy bruising Vital Signs Vital Signs Vital Signs: 03/12/21 19:54 03/12/21 20:21 Temperature 97.8 F 97.8 F Temperature Source Temporal Oral Pulse Rate 91 91 Respiratory Rate 16 16 Blood Pressure 128/84 H 128/84 H Blood Pressure Mean 98 98 Blood Pressure Source Monitor Blood Pressure Position Sitting Blood Pressure Location Right Arm Pulse Ox 96 96 Oxygen Delivery Method Room Air Room Air Physical Exam Const alert and oriented x3 General Appearance: cooperative HEENT normocephalic and head/scalp atraumatic Neck no lymphadenopathy, supple, no JVD and thyroid normal General: trachea midline Resp normal respiratory effort, normal air movement and clear to auscultation bilaterally Cardio regular rate, regular rhythm, S1 normal heart sound, S2 normal heart sound and peripheral pulses 2+ throughout GI normal to inspection, nondistended, normoactive bowel sounds and soft to palpation Extremity normal capillary refill and no clubbing, cyanosis or edema General Extremity: no tenderness to palpation of joints or extremities Skin General Skin Exam: no breakdown and turgor normal Lesions: no lesions Rashes: no rashes Neuro CN's II-XII intact bilaterally Psych affect normal Appearance: appropriate Lab / Micro Data Result Diagrams: 03/12/21 20:34 03/12/21 20:34 Labs: Laboratory Results - last 24 hr 03/12/21 03/12/21 03/12/21 20:34 20:34 20:34 WBC 7.7 RBC 4.65 Hgb 14.5 Hct 42.2 MCV 90.8 MCH 31.2 MCHC 34.4 RDW Std Deviation 47.9 H RDW Coeff of Tony 14.4 Plt Count 316 MPV 9.1 Immature Gran % (Auto) 0.100 Neut % (Auto) 50.6 Lymph % (Auto) 39.2 [place] % (Auto) 9.2 Eos % (Auto) 0.4 Baso % (Auto) 0.5 Absolute Neuts (auto) 3.9 Absolute Lymphs (auto) 3.01 Nucleated RBC % 0 Sodium 140 Potassium 3.6 Chloride 104 Carbon Dioxide 29.0 Anion Gap 7 BUN 8 Creatinine 0.85 Estim Creat Clear Calc 77.14 Est GFR (MDRD) Af Amer 99 Est GFR (MDRD) Non-Af 82 BUN/Creatinine Ratio 9.5 L Glucose 113 H Calcium 8.2 L Total Bilirubin 0.50 AST 52 H ALT 47 Alkaline Phosphatase 91 Total Protein 8.2 Albumin 3.6 Globulin 4.6 H Albumin/Globulin Ratio 0.8 L Serum , Qual Urine Opiates Screen Urine Methadone Screen Ur Barbiturates Screen Ur Phencyclidine Scrn Ur Amphetamines Screen U Methamphetamin-MDMA U Benzodiazepines Scrn Urine Cocaine Screen U Cannabinoids Screen Ur Drug Screen Comment Ethyl Alcohol 355.0 H* 03/12/21 03/12/21 20:34 21:30 WBC RBC Hgb Hct MCV MCH MCHC RDW Std Deviation RDW Coeff of Tony Plt Count MPV Immature Gran % (Auto) Neut % (Auto) Lymph % (Auto) [place] % (Auto) Eos % (Auto) Baso % (Auto) Absolute Neuts (auto) Absolute Lymphs (auto) Nucleated RBC % Sodium Potassium Chloride Carbon Dioxide Anion Gap BUN Creatinine Estim Creat Clear Calc Est GFR (MDRD) Af Amer Est GFR (MDRD) Non-Af BUN/Creatinine Ratio Glucose Calcium Total Bilirubin AST ALT Alkaline Phosphatase Total Protein Albumin Globulin Albumin/Globulin Ratio Serum , Qual NEGATIVE Urine Opiates Screen NEGATIVE Urine Methadone Screen NEGATIVE Ur Barbiturates Screen NEGATIVE Ur Phencyclidine Scrn NEGATIVE Ur Amphetamines Screen NEGATIVE U Methamphetamin-MDMA NEGATIVE U Benzodiazepines Scrn NEGATIVE Urine Cocaine Screen NEGATIVE U Cannabinoids Screen NEGATIVE Ur Drug Screen Comment Ethyl Alcohol Assessment & Plan Assessment/Plan (1) Alcohol intoxication: QUALIFIERS: Complication of substance-induced condition: uncomplicated Qualified Code(s): F10.920 - Alcohol use, unspecified with intoxication, uncomplicated (2) Alcohol dependence: QUALIFIERS: Substance use status: with intoxication Complication of substance-induced condition: uncomplicated Qualified Code(s): F10.220 - Alcohol dependence with intoxication, uncomplicated (3) Depression: QUALIFIERS: Depression Type: unspecified Qualified Code(s): F32.9 - Major depressive disorder, single episode, unspecified (4) Tobacco abuse: PLAN: -Admit to [facility] for inpatient detoxification program -Phenobarb taper ordered to start tomorrow due to patient's current alcohol level -Supportive medications also ordered -Vital signs and O2 per protocol -Regular diet -Case management consulted for coordination with outpatient services -Continue sertraline DVT Prophylaxis-not indicated This patient was seen by JUAN Dinero under the supervision of Dr. Neal.
[2021-03-12 22:42] VITALS: BP 105/86; PULSE 97; RESP 16; TEMP 36.5; O2SAT 100
[2021-03-12 22:52] VITALS: BMI 27.8
[2021-03-12 23:01] VITALS: BP 108/88; PULSE 83; RESP 16; TEMP 36.9; O2SAT 96
[2021-03-12] MEDS: Ondansetron 8 MG Tablet PO (23:41)
[2021-03-13 03:01] VITALS: BP 120/86; PULSE 79; RESP 15; TEMP 36.8; O2SAT 98
[2021-03-13] MEDS: Dicyclomine 10 MG Capsule 20 MG PO (03:38)
[2021-03-13] MEDS: Ondansetron 4 MG/2 ML Vial IV (06:52)
[2021-03-13] MEDS: 0.9% Saline Lock 10 ML Syringe IV ×2 (06:52→22:29)
[2021-03-13 07:37] VITALS: O2SAT 96
[2021-03-13] MEDS: Ondansetron 8 MG Tablet PO ×2 (08:19→20:52)
[2021-03-13] MEDS: hydrOXYzine PAM 25 MG Capsule 50 MG PO (08:19)
[2021-03-13] MEDS: Folic Acid 1 MG Tablet PO (08:20)
[2021-03-13] MEDS: Thiamine Hydrochloride 100 MG Tablet PO (08:20)
[2021-03-13] MEDS: Sertraline 100 MG Tablet PO (08:21)
[2021-03-13 09:00] VITALS: BP 146/72; PULSE 60; RESP 18; TEMP 36.5; O2SAT 95
[2021-03-13] MEDS: Phenobarbital 32.4 MG Tablet 64.8 MG PO ×4 (09:37→22:23)
[2021-03-13] MEDS: Metoclopramide 10 MG/2 ML Vial 5 MG IV ×3 (09:37→22:25)
--- NOTE | 2021-03-13 09:41 | ADDICTION ---
This leader writer attempted to meet with PT. PT's nurse informed this leader writer that PT is very ill and is actively vomiting. This leader writer will attempt to meet with PT at next visit on 03/14/21 to allow PT time to rest prior to conducting assessments.
[2021-03-13 14:00] VITALS: BP 127/87; PULSE 82; RESP 16; TEMP 36.6; O2SAT 99
--- NOTE | 2021-03-13 15:08 | PN.HOSP_ITS ---
Subjective Subjective Patient having aches and pain mainly musculoskeletal pain and loose bowel movement. No major shaking sort tremors or abnormal thoughts or hallucination. Objective Data Objective Data Vital Signs: Vital Signs Temp Pulse Resp BP Pulse Ox 97.8 F 82 16 127/87 H 99 03/13/21 14:00 03/13/21 14:00 03/13/21 14:00 03/13/21 14:00 03/13/21 14:00 Oxygen Delivery Method Room Air Weight: 156 lb 15.506 oz Body Mass Index (BMI) 27.8 Intake & Output: Intake and Output for Last 24 Hours 03/11/21 03/12/21 03/13/21 23:59 23:59 23:59 Intake Total 800 / 800 Output Total 300 / 300 Balance 500 / 500 Lab / Micro Data Result Diagrams: 03/12/21 20:34 03/12/21 20:34 Labs: Laboratory Results - last 24 hr 03/12/21 03/12/21 03/12/21 20:34 20:34 20:34 WBC 7.7 RBC 4.65 Hgb 14.5 Hct 42.2 MCV 90.8 MCH 31.2 MCHC 34.4 RDW Std Deviation 47.9 H RDW Coeff of Tony 14.4 Plt Count 316 MPV 9.1 Immature Gran % (Auto) 0.100 Neut % (Auto) 50.6 Lymph % (Auto) 39.2 Mckean % (Auto) 9.2 Eos % (Auto) 0.4 Baso % (Auto) 0.5 Absolute Neuts (auto) 3.9 Absolute Lymphs (auto) 3.01 Nucleated RBC % 0 Sodium 140 Potassium 3.6 Chloride 104 Carbon Dioxide 29.0 Anion Gap 7 BUN 8 Creatinine 0.85 Estim Creat Clear Calc 77.14 Est GFR (MDRD) Af Amer 99 Est GFR (MDRD) Non-Af 82 BUN/Creatinine Ratio 9.5 L Glucose 113 H Calcium 8.2 L Total Bilirubin 0.50 AST 52 H ALT 47 Alkaline Phosphatase 91 Total Protein 8.2 Albumin 3.6 Globulin 4.6 H Albumin/Globulin Ratio 0.8 L Serum , Qual Urine Opiates Screen Urine Methadone Screen Ur Barbiturates Screen Ur Phencyclidine Scrn Ur Amphetamines Screen U Methamphetamin-MDMA U Benzodiazepines Scrn Urine Cocaine Screen U Cannabinoids Screen Ur Drug Screen Comment Ethyl Alcohol 355.0 H* 03/12/21 03/12/21 20:34 21:30 WBC RBC Hgb Hct MCV MCH MCHC RDW Std Deviation RDW Coeff of Tony Plt Count MPV Immature Gran % (Auto) Neut % (Auto) Lymph % (Auto) Mckean % (Auto) Eos % (Auto) Baso % (Auto) Absolute Neuts (auto) Absolute Lymphs (auto) Nucleated RBC % Sodium Potassium Chloride Carbon Dioxide Anion Gap BUN Creatinine Estim Creat Clear Calc Est GFR (MDRD) Af Amer Est GFR (MDRD) Non-Af BUN/Creatinine Ratio Glucose Calcium Total Bilirubin AST ALT Alkaline Phosphatase Total Protein Albumin Globulin Albumin/Globulin Ratio Serum , Qual NEGATIVE Urine Opiates Screen NEGATIVE Urine Methadone Screen NEGATIVE Ur Barbiturates Screen NEGATIVE Ur Phencyclidine Scrn NEGATIVE Ur Amphetamines Screen NEGATIVE U Methamphetamin-MDMA NEGATIVE U Benzodiazepines Scrn NEGATIVE Urine Cocaine Screen NEGATIVE U Cannabinoids Screen NEGATIVE Ur Drug Screen Comment Ethyl Alcohol Physical Exam Narrative Physical exam General: Alert, Oriented x3, Cooperative HEENT: Atraumatic, PERRLA, EOMI, Normocephalic Oral: No Gingival or Mucosal Lesions/ Ulcerations Neck: Supple, No JVD, Negative Carotid Bruits Lungs: Air entry equal in bilateral lung bases. No crepitation/rhonchi Cardiovascular: Regular rate, Regular Rhythm, Normal S1, Normal S2, No murmurs Abdomen: Bowel Sounds Present, Soft, Non Tender, Non-Distended : No renal angle tenderness. No suprapubic tenderness. Extremities: No edema, Capillary Refill Less than 3 Seconds Skin: No rashes, No breakdown Musculoskeletal: No Tenderness to Palpation of Joints or Extremities Neurological: Cranial nerves II-XII grossly intact, Deep Tendon Reflexes 2+/4 and Symmetrical, Neuro grossly intact Psych/Mental Status: Normal Affect, Appropriate. Assessment & Plan Assessment/Plan (1) Alcohol intoxication: QUALIFIERS: Complication of substance-induced condition: uncomplicated Qualified Code(s): F10.920 - Alcohol use, unspecified with intoxication, uncomplicated (2) Alcohol dependence: QUALIFIERS: Complication of substance-induced condition: uncomplicated Substance use status: with intoxication Qualified Code(s): F10.220 - Alcohol dependence with intoxication, uncomplicated (3) Depression: QUALIFIERS: Depression Type: unspecified Qualified Code(s): F32.9 - Major depressive disorder, single episode, unspecified (4) Tobacco abuse: PLAN: This 35-year-old female admitted with acute alcohol intoxication with serum alcohol level 355. Patient relapsed about 4 weeks ago after being sober for 1.5 years. 1. Acute alcohol withdrawal syndrome with chronic use, dependence and relapse: On the phenobarbital based other medications for stabilization of alcohol withdrawal symptoms.On the phenobarbital based other medications for stabilization of alcohol withdrawal symptoms. 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 2. Chronic smoker: On nicotine 3. Anxiety and depression: Controlled. No suicidal ideation, attempt. VT prophylaxis, low risk early medicine coverage. Visit Charges Inpatient E&M: 48402 Subs Hosp L2
--- NOTE | 2021-03-13 16:19 | CHAPLAIN ---
Type of Pastoral Visit _x__ Initial Visit ___ Follow-up Visit ___ On-call Visit ___ General Patient Visit ___ Spiritual Assessment ___ Family Conference ___ Bereavement ___ Rapid Response ___ Code Blue ___ Other (describe below) Pastoral Care Referral From _x__ Patient ___ Family ___ Nurse ___ Physician ___ Maintenance Service Technician ___ Seat Joiner [employer] ___ Other (describe below) Sacrament/Intervention _x__ Active listening ___ Anointing ___ Sikhism ___ Bereavement ___ Communion ___ Mila exploration ___ _x__ Life review _x__ Prayer ___ Reconciliation ___ Sacrament of Sick _x__ Supportive presence ___ Wedding ___ Other (describe below) Pastoral Comments patient asked for spiritual care; pt states she is not anabaptism but would like someone to talk with and acknowledges need for help and recovery from substance abuse; pt talks; pt states she has support from her mother and friends; pt has a job that she is worried about keeping; pt asks for prayer
[2021-03-13 20:44] VITALS: BP 121/80; PULSE 80; RESP 16; TEMP 37.2; O2SAT 97
[2021-03-13] MEDS: traZODone 100 MG Tablet PO (22:23)
[2021-03-14] VITALS (7 sets, daily range): BP systolic 109–127; BP diastolic 76–86; PULSE 80–102; RESP 16–18; TEMP 36.7–36.9; O2SAT 93–97
[2021-03-14] MEDS: Phenobarbital 32.4 MG Tablet 64.8 MG PO ×6 (01:58→21:22)
[2021-03-14] MEDS: Ondansetron 8 MG Tablet PO (06:33)
[2021-03-14] MEDS: Thiamine Hydrochloride 100 MG Tablet PO (08:50)
[2021-03-14] MEDS: Folic Acid 1 MG Tablet PO (08:50)
[2021-03-14] MEDS: Sertraline 100 MG Tablet PO (10:38)
--- NOTE | 2021-03-14 11:26 | ADDICTION ---
This proposal manager writer met with PT to conduct ASAM, MSE, AUDIT assessments and to plan for d/c. PT A+Ox4 and participated appropriately. All assessments completed, faxed to [facility] and placed in PT's chart. PT to f/u with [facility] for MAT services and will look for a therapist to meet with after switching her insurance provider. PT did not report a need for transportation upon d/c. PT scheduled for MAT appointment on 03/16/21.
[2021-03-14] MEDS: Ibuprofen 600 MG Tablet PO (12:15)
--- NOTE | 2021-03-14 13:42 | PN.HOSP_ITS ---
Subjective Subjective Patient currently not having signs of withdrawal. Phenobarbital was started yesterday as patient came with alcohol intoxication. Objective Data Objective Data Vital Signs: Vital Signs Temp Pulse Resp BP Pulse Ox 98.4 F 102 H 16 117/81 H 97 03/14/21 12:10 03/14/21 12:10 03/14/21 12:10 03/14/21 12:10 03/14/21 12:10 Oxygen Delivery Method Room Air Weight: 156 lb 15.506 oz Body Mass Index (BMI) 27.8 Intake & Output: Intake and Output for Last 24 Hours 03/12/21 03/13/21 03/14/21 23:59 23:59 23:59 Intake Total 800 / 1200 1100 / 1100 Output Total 300 / 300 Balance 500 / 900 1100 / 1100 Lab / Micro Data Result Diagrams: 03/12/21 20:34 03/12/21 20:34 Physical Exam Narrative Physical exam General: Alert, Oriented x3, Cooperative HEENT: Atraumatic, PERRLA, EOMI, Normocephalic Oral: No Gingival or Mucosal Lesions/ Ulcerations Neck: Supple, No JVD, Negative Carotid Bruits Lungs: Air entry equal in bilateral lung bases. No crepitation/rhonchi Cardiovascular: Regular rate, Regular Rhythm, Normal S1, Normal S2, No murmurs Abdomen: Bowel Sounds Present, Soft, Non Tender, Non-Distended : No renal angle tenderness. No suprapubic tenderness. Extremities: No edema, Capillary Refill Less than 3 Seconds Skin: No rashes, No breakdown Musculoskeletal: No Tenderness to Palpation of Joints or Extremities Neurological: Cranial nerves II-XII grossly intact, Deep Tendon Reflexes 2+/4 and Symmetrical, Neuro grossly intact Psych/Mental Status: Normal Affect, Appropriate. Assessment & Plan Assessment/Plan (1) Alcohol intoxication: QUALIFIERS: Complication of substance-induced condition: uncompl icated Qualified Code(s): F10.920 - Alcohol use, unspecified with intoxication, uncomplicated (2) Alcohol dependence: QUALIFIERS: Substance use status: with intoxication Complication of substance-induced condition: uncomplicated Qualified Code(s): F10.220 - Alcohol dependence with intoxication, uncomplicated (3) Depression: QUALIFIERS: Depression Type: unspecified Qualified Code(s): F32.9 - Major depressive disorder, single episode, unspecified (4) Tobacco abuse: PLAN: This 35-year-old female admitted with acute alcohol intoxication with serum alcohol level 355. Patient relapsed about 4 weeks ago after being sober for 1.5 years. 1. Acute alcohol withdrawal syndrome with chronic use, dependence and relapse: On the phenobarbital based other medications for stabilization of alcohol withdrawal symptoms.On the phenobarbital based other medications for stabilization of alcohol withdrawal symptoms. 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 03/14: Patient on 97.2 mg phenobarbital in the morning. Although patient wants to go home but advised to stay and possible discharge tomorrow. 2. Chronic smoker: On nicotine 3. Anxiety and depression: Controlled. No suicidal ideation, attempt. VT prophylaxis, low risk early medicine coverage. Active Medications Acetaminophen (Acetaminophen 325 Mg Tablet) 650 mg PO Q6H PRN PRN PRN Reason: Pain Score 1-10/Temp > 100.7 F Al Hydroxide/Mg Hydroxide (Mag Hydrox/Al Hydrox/Simeth 30 Ml Udc) 30 ml PO Q6H PRN PRN PRN Reason: dyspesia Bisacodyl (Bisacodyl 10 Mg Suppository) 10 mg RC DAILY PRN PRN Reason: Constipation Dicyclomine HCl (Dicyclomine 10 Mg Capsule) 20 mg PO Q6H PRN PRN PRN Reason: abdominal discomfort Last Admin: 03/13/21 03:38 Dose: 20 mg Documented by: Folic Acid (Folic Acid 1 Mg Tablet) 1 mg PO BREAKFAST CRUZ Last Admin: 03/14/21 08:50 Dose: 1 mg Documented by: Gabapentin (Gabapentin 300 Mg Capsule) 300 mg PO Q8H PRN PRN PRN Reason: moderate to severe anxiety Hydroxyzine Pamoate (Hydroxyzine Haylee 25 Mg Capsule) 50 mg PO Q4H PRN PRN PRN Reason: mild anxiety Last Admin: 03/13/21 08:19 Dose: 50 mg Documented by: Ibuprofen (Ibuprofen 600 Mg Tablet) 600 mg PO Q8H PRN PRN PRN Reason: PAIN Last Admin: 03/14/21 12:15 Dose: 600 mg Documented by: Loperamide HCl (Loperamide 2 Mg Capsule) 2 mg PO Q4H PRN PRN PRN Reason: LOOSE STOOLS Metoclopramide HCl (Metoclopramide 10 Mg/2 Ml Vial) 5 mg IV Q6H PRN PRN PRN Reason: NAUSEA/VOMITING Last Admin: 03/13/21 22:25 Dose: 5 mg Documented by: Nicotine (Nicotine 21 Mg Patch) 21 mg TD DAILY [facility] Last Admin: 03/14/21 10:38 Dose: 21 mg Documented by: Ondansetron HCl (Ondansetron 8 Mg Tablet) 8 mg PO Q8H PRN PRN PRN Reason: NAUSEA Last Admin: 03/14/21 06:33 Dose: 8 mg Documented by: Ondansetron HCl (Ondansetron 4 Mg/2 Ml Vial) 4 mg IV Q6H PRN PRN PRN Reason: NAUSEA/VOMITING Last Admin: 03/13/21 06:52 Dose: 4 mg Documented by: Phenobarbital (Phenobarbital 32.4 Mg Tablet) 97.2 mg PO Q4H [facility]; Taper Stop: 03/17/21 17:59 Last Admin: 03/14/21 10:38 Dose: 97.2 mg Documented by: Senna (Senna Tablet) 2 tablet PO QHS PRN PRN Reason: Constipation Sertraline HCl (Sertraline 100 Mg Tablet) 100 mg PO DAILY [facility] Last Admin: 03/14/21 10:38 Dose: 100 mg Documented by: Thiamine HCl (Thiamine Hydrochloride 100 Mg Tablet) 100 mg PO BREAKFAST [facility] Last Admin: 03/14/21 08:50 Dose: 100 mg Documented by: Trazodone HCl (Trazodone 100 Mg Tablet) 100 mg PO QHS PRN PRN Reason: INSOMNIA Last Admin: 03/13/21 22:23 Dose: 100 mg Documented by: Visit Charges Inpatient E&M: [id number] [facility] Hosp L2
[2021-03-14] MEDS: traZODone 100 MG Tablet PO (21:22)
[2021-03-14] MEDS: 0.9% Saline Lock 10 ML Syringe IV (21:23)
[2021-03-15 02:14] VITALS: BP 115/88; PULSE 90; RESP 16; TEMP 36.6; O2SAT 95
[2021-03-15] MEDS: Phenobarbital 32.4 MG Tablet 64.8 MG PO ×4 (02:16→13:35)
[2021-03-15 05:51] VITALS: BP 114/80; PULSE 93; RESP 16; TEMP 36.8; O2SAT 98
[2021-03-15 07:03] VITALS: O2SAT 96
--- NOTE | 2021-03-15 09:29 | PCM.DC ---
Discharge Instructions Diet Discharge Diet: No restrictions Activity Discharge Activity: Return to Normal Activity and May Not Drive (For 24 hours.) Weight Bearing Status: Weight bearing as tolerated Dressing / Incision Call your doctor if you observe: Fever of 101 or Higher, Coldness, Increased Pain, Numbness or Tingling, Change in Color, Inability to urinate, Inability to have a bowel movement, Using more than one pad per hour, Shortness of breath, Dizziness, Fainting spells, Swelling in the ankles, Chest pain, Prolonged hiccupping, Increased palpitations (irregular heartbeat) and Calf discomfort Follow Up Care Test Results: Test results from this visit will be discussed in further detail at your follow-up appointment, if applicable. Discharge Plan Admission Admit Date/Time: 03/12/21 22:30 Primary Reason for Your Visit: Acute alcohol withdrawal syndrome Attending Provider: Camacho Vemra Instructions Forms: Work / School Excuse Patient Instructions: ED Alcohol Intoxication Discharge Orders/Prescriptions Prescriptions: New thiamine HCl (vitamin B1) [Vitamin B-1] 100 mg Tablet 100 mg PO BREAKFAST Qty: 30 RF: 2 nicotine 21 mg/24 hr Patch 24 Hour 21 mg transdermal DAILY Qty: 30 RF: 0 folic acid 1 mg Tablet 1 mg PO BREAKFAST Qty: 30 RF: 1 Continued sertraline 100 MG tablet 100 mg PO DAILY RF: 0 Referrals / Follow Up: CASSIA ARAUJO [Other] - In 1 Week CASSIA ARAUJO [Other] Jovita Calle DO [STAFF PHYSICIAN] - In 1 Week Disposition Disposition (needs filled in before D/C Order can be placed): Home, self care
--- NOTE | 2021-03-15 09:34 | DS.PCM_ITS ---
Providers Date of Admission: 03/12/21 Primary Care Physician: CASSIA ARAUJO Reason For Visit: ETOH WITHDRAWAL Diagnosis Discharge Diagnosis (1) Alcohol intoxication: Status: Acute Code(s): F10.929 - Alcohol use, unspecified with intoxication, unspecified Qualifiers: Complication of substance-induced condition: uncomplicated Qualified Code(s): F10.920 - Alcohol use, unspecified with intoxication, uncomplicated (2) Alcohol dependence: Status: Acute Code(s): F10.20 - Alcohol dependence, uncomplicated Qualifiers: Complication of substance-induced condition: uncomplicated Substance use status: with intoxication Qualified Code(s): F10.220 - Alcohol dependence with intoxication, uncomplicated (3) Depression: Status: Acute Code(s): F32.9 - Major depressive disorder, single episode, unspecified Qualifiers: Depression Type: unspecified Qualified Code(s): F32.9 - Major depressive disorder, single episode, unspecified (4) Tobacco abuse: Status: Acute Code(s): Z72.0 - Tobacco use Medications at Discharge Home Medications sertraline 100 mg PO DAILY 10/27/20 folic acid 1 mg PO BREAKFAST #30 tab 03/15/21 nicotine 21 mg TRANSDERMAL DAILY #30 ea 03/15/21 thiamine HCl (vitamin B1) [Vitamin B-1] 100 mg PO BREAKFAST #30 tab 03/15/21 Hospital Course Summary of Care Provided Hospital Course: ?This 35-year-old female admitted with acute alcohol intoxication with serum alcohol level 355.? Patient relapsed about 4 weeks ago after being sober for 1.5 years. 1.? Acute alcohol withdrawal syndrome with chronic use, dependence and relapse: On the phenobarbital based other medications for stabilization of alcohol withdrawal symptoms.On the phenobarbital based other medications for stabilization of alcohol withdrawal symptoms.? 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 Patient is started on phenobarbital did not had major withdrawal symptoms like seizure, tachycardia. Patient has follow-up as an outpatient and scheduled to have [facility]. 2.? Chronic smoker: On nicotine transdermal patch. Prescription given for nicotine, thiamine and folic acid. 3.? Anxiety and depression: Controlled.? No suicidal ideation, attempt. VT prophylaxis, low risk early medicine coverage. Discharge medication reconciliation done. Discharge follow-up instructions completed. Discharge process discussed with the patient and all questions were answered to patient's satisfaction. Nursing letter was given for patient's admission as requirement for her workplace. Total time spent, exact 35 minutes on discharge meds reconciliation, examination, coordination of care with nurses and ancillary staff, review of imaging and blood test and discussion with the patient on follow-up instructions Physical Exam Narrative No clinical signs of withdrawal. Patient feels ready to go home. Physical exam General: Alert, Oriented x3, Cooperative HEENT: Atraumatic, PERRLA, EOMI, Normocephalic Oral: No Gingival or Mucosal Lesions/ Ulcerations Neck: Supple, No JVD, Negative Carotid Bruits Lungs: Air entry equal in bilateral lung bases. No crepitation/rhonchi Cardiovascular: Regular rate, Regular Rhythm, Normal S1, Normal S2, No murmurs Abdomen: Bowel Sounds Present, Soft, Non Tender, Non-Distended : No renal angle tenderness. No suprapubic tenderness. Extremities: No edema, Capillary Refill Less than 3 Seconds Skin: No rashes, No breakdown Musculoskeletal: No Tenderness to Palpation of Joints or Extremities Neurological: Cranial nerves II-XII grossly intact, Deep Tendon Reflexes 2+/4 and Symmetrical, Neuro grossly intact. No tremors Psych/Mental Status: Normal Affect, Appropriate. ABG / Lab / Microbiology Data Result Diagrams: 03/12/21 20:34 03/12/21 20:34 D/C Instructions Discharge Diet: No restrictions Discharge Activity: Return to Normal Activity and May Not Drive (For 24 hours.) Weight Bearing Status: Weight bearing as tolerated Call your doctor if you observe: Fever of 101 or Higher, Coldness, Increased Pain, Numbness or Tingling, Change in Color, Inability to urinate, Inability to have a bowel movement, Using more than one pad per hour, Shortness of breath, Dizziness, Fainting spells, Swelling in the ankles, Chest pain, Prolonged hiccupping, Increased palpitations (irregular heartbeat) and Calf discomfort Meaningful Use Info Meaningful Use Diagnoses (Choose all that apply): None applicable Discharge Plan Admission Admit Date/Time: 03/12/21 22:30 Primary Reason for Your Visit: Acute alcohol withdrawal syndrome Attending Provider: Camacho Verma Instructions Forms: Work / School Excuse Patient Instructions: ED Alcohol Intoxication Discharge Orders/Prescriptions Prescriptions: New thiamine HCl (vitamin B1) [Vitamin B-1] 100 mg Tablet 100 mg PO BREAKFAST Qty: 30 RF: 2 nicotine 21 mg/24 hr Patch 24 Hour 21 mg transdermal DAILY Qty: 30 RF: 0 folic acid 1 mg Tablet 1 mg PO BREAKFAST Qty: 30 RF: 1 Continued sertraline 100 MG tablet 100 mg PO DAILY RF: 0 Referrals / Follow Up: CASSIA ARAUJO [Other] - In 1 Week CASISA ARAUJO [Other] Jovita Calle DO [STAFF PHYSICIAN] - In 1 Week Disposition Disposition (needs filled in before D/C Order can be placed): Home, self care Visit Charges Inpatient E&M: [id number] Disch Hosp
--- NOTE | 2021-03-15 10:09 | PHA.DC.MR ---
Pharmacy Service has performed discharge medication reconciliation for this patient. Home Medications sertraline 100 mg PO DAILY 10/27/20 folic acid 1 mg PO BREAKFAST #30 tab 03/15/21 nicotine 21 mg TRANSDERMAL DAILY #30 ea 03/15/21 thiamine HCl (vitamin B1) [Vitamin B-1] 100 mg PO BREAKFAST #30 tab 03/15/21 The patient's discharge medication list was reviewed for discrepancies and discrepancies were resolved.
[2021-03-15] MEDS: Sertraline 100 MG Tablet PO (10:34)
[2021-03-15] MEDS: Folic Acid 1 MG Tablet PO (10:34)
[2021-03-15] MEDS: Thiamine Hydrochloride 100 MG Tablet PO (10:34)
[2021-03-15 11:00] VITALS: BP 116/84; PULSE 77; RESP 18; TEMP 36.6; O2SAT 97
== END 2021-03-15 16:50 | disposition home or self-care (01) | DRG 897 ==
LOC: ED 22:10 → MS3 03-13 03:33
PROVIDERS: Admitting Provider Family Medicine; Emergency Provider Emergency Medicine; Visit Provider Internal Medicine
DX: F10.220 Alcohol dependence with intoxication, uncomplicated (principal); F10.239 Alcohol dependence with withdrawal, unspecified; Y90.8 Blood alcohol level of 240 mg/100 ml or more; F17.200 Nicotine dependence, unspecified, uncomplicated; F32.9 Major depressive disorder, single episode, unspecified; F41.9 Anxiety disorder, unspecified; Z79.899 Other long term (current) drug therapy
CPT/HCPCS: 80053; 80307; 82077; 84703; 85025; 99284; A4216; J2405

== ENCOUNTER 2025-04-16 17:42 | Inpatient (IN) | payer OTHER, SELFPAY ==
[2025-04-16] VITALS (9 sets, daily range): BP systolic 125–164; BP diastolic 80–109; PULSE 66–116; RESP 12–18; TEMP 36.5–37.3; O2SAT 95–100; BMI 27.4; BMI 27.1
--- NOTE | 2025-04-16 18:20 | EX.ED.SAOD ---
HPI History of Present Illness Chief Complaint: Substance Abuse Informant: patient Narrative Narrative: 39-year-old female presenting to the emergency room requesting detox from alcohol. Patient states that she has been sober for about 3 years after detoxing here at this hospital. She states that she began drinking some white claws. Over the past couple weeks however she is drinking vodka. She states she is having (2) 1/5ths a day. Patient states that she has had alcohol withdrawal seizure before and was worried about trying to detox at home. She denies any pending legal issues. She currently is taking Lexapro 10 mg a day as well as trazodone at night for sleep. Patient states there are days that she begins drinking after her coffee. She denies drinking at work but states that she has called off work to drink. The patient notes her last drink was about 6 hours ago. [facility] Medical History Alcohol abuse Depression Home Medications ?Medication ?Instructions ?Recorded ?Last Taken ?Type escitalopram oxalate 10 mg tablet 10 mg PO DAILY 04/16/25 Unknown History (Lexapro) trazodone 50 mg tablet 75 mg PO QHS 04/16/25 Unknown History Allergy/AdvReac Type Severity Reaction Status Date / Time No Known Allergies Allergy Verified 04/16/25 17:43 Social History Smoking Status: Current some day smoker tobacco type: cigarettes and e-cigarettes ROS ROS ED Constitutional Constitutional ED: Denies chills or weight loss Eyes Eyes: Denies change in vision or diplopia ENT ENT ED: Denies ear pain, rhinorrhea or sore throat Cardiovascular Cardiovascular: Denies chest pain, orthopnea, palpitations or racing heartbeat Respiratory/Chest Respiratory/Chest: Denies cough, dyspnea or orthopnea Gastrointestinal Gastrointestinal: Denies abdominal pain, diarrhea, nausea or vomiting Genitourinary Genitourinary ED: Denies dysuria, hematuria or urinary frequency Musculoskeletal Musculoskeletal: Denies arthralgias or myalgias Integumentary Denies abscess or rash Neurologic Neurologic: Denies headache(s) or weakness Psychiatric Psychiatric: Reports depression; Denies anxiety, suicidal ideation or suicidal thoughts Endocrine Endocrinology: Denies polydipsia, polyphagia or polyuria Allergic/Immunologic Allergic/Immunologic ED: Denies mouth swelling, tongue swelling or urticaria EXAM Physical Exam Const Vital Signs: 04/16/25 17:43 04/16/25 18:35 04/16/25 18:43 Temperature 97.9 F 98.4 F Temperature Source Oral Oral Pulse Rate 116 H 66 103 H Respiratory Rate 16 12 16 Blood Pressure 164/109 H 125/81 H 130/90 H Blood Pressure Mean 127 95 103 Blood Pressure Source Monitor Blood Pressure Position Semi-Fowlers Blood Pressure Location Left Arm Pulse Ox 97 100 100 Oxygen Delivery Method Room Air Room Air Room Air Positive well nourished and well developed General Appearance ED: well developed HEENT Reports normocephalic, head/scalp atraumatic and moist mucous membranes Eyes PERRL and EOMs intact bilaterally Neck no lymphadenopathy, supple and no JVD Resp normal respiratory effort and clear to auscultation bilaterally Cardio regular rate, regular rhythm and no murmurs Rate: tachycardic GI normal to inspection, nondistended, normoactive bowel sounds and non-tender Palpation: soft Back/Spine no CVA tenderness and normal ROM Extremity normal to inspection General Extremety ED: Negative for edema General Extremity: Negative for edema Neuro oriented x3 and CN's II-XII intact bilaterally Sensorium / Orientation: alert Motor Exam: strength 5/5 throughout Psych mental status grossly normal Mood & Affect: Negative for depressed or tearful Skin no rashes or lesions noted and no wounds MDM MDM MDM Narrative Medical decision making narrative: Differential diagnosis includes alcohol abuse alcohol withdrawal vitamin deficiency electrolyte abnormalities bone marrow suppression thrombocytopenia liver dysfunction coagulopathy ED addiction labs for alcohol were obtained. Normal platelet count and INR. test is negative. AST elevated 69 ALT of 26. Normal bilirubin. Glucose of 180. Alcohol level is 285 urine toxicology I will speak with the hospitalist regarding admission into the ramp program History & Record Review Discussion w/independent historian: Patient Additional record(s) reviewed:: Prior inpatient record, Prior ED visit and Prior labs Lab Data Labs: Laboratory Results - last 24 hr 04/16/25 04/16/25 17:55 18:27 WBC 7.7 RBC 4.41 Hgb 15.0 Hct 41.6 MCV 94.3 MCH 34.0 H MCHC 36.1 H RDW Std Deviation 44.3 H RDW Coeff of Tony 12.6 Plt Count 274 MPV 9.0 Immature Gran % (Auto) 0.100 Neut % (Auto) 67.0 Lymph % (Auto) 25.5 Butler % (Auto) 6.9 Eos % (Auto) 0.1 Baso % (Auto) 0.4 Absolute Neuts (auto) 5.1 Absolute Lymphs (auto) 1.96 Nucleated RBC % 0 PT 13.2 INR 1.0 Sodium 137 Potassium 3.5 Chloride 95 L Carbon Dioxide 22.9 Anion Gap 19 H BUN 6 Creatinine 0.98 Estim Creat Clear Calc 73.19 Est GFR (MDRD) Non-Af 76 BUN/Creatinine Ratio 5.8 L Glucose 180 H Calcium 8.5 Total Bilirubin 0.44 AST 69 H ALT 26 Alkaline Phosphatase 100 Total Protein 8.4 Albumin 4.2 Globulin 4.2 Albumin/Globulin Ratio 1.0 Serum , Qual NEGATIVE Urine Opiates Screen NEGATIVE U Buprenorphine Qual NEGATIVE Ur Oxycodone Screen NEGATIVE Urine Methadone Screen NEGATIVE Urine Fentanyl Screen NEGATIVE Ur Barbiturates Screen NEGATIVE Ur Phencyclidine Scrn NEGATIVE Ur Amphetamines Screen NEGATIVE U Benzodiazepines Scrn NEGATIVE Urine Cocaine Screen NEGATIVE U Cannabinoids Screen NEGATIVE Ethyl Alcohol 285.0 H Management Discussion w/another healthcare provider: Hospitalist Discharge Plan Dx/Rx/DC Orders Clinical Impression: Alcohol dependence, Depression, Alcohol withdrawal, Alcohol intoxication Disposition Disposition: Acute Care Hospital [facility]
--- OUTSIDE RECORDS SUMMARY | 2025-04-16 18:20 | XMS RPT_ITS | CCD ---
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 H* 03/12/21 03/12/21 20:34 21:30 WBC RBC Hgb Hct MCV MCH MCHC RDW Std Deviation RDW Coeff of Tony Plt Count MPV Immature Gran % (Auto) Neut % (Auto) Lymph % (Auto) [place] % (Auto) Eos % (Auto) Baso % (Auto) Absolute Neuts (auto) Absolute Lymphs (auto) Nucleated RBC % Sodium Potassium Chloride Carbon Dioxide Anion Gap BUN Creatinine Estim Creat C (more content not included)... Normal [facility] Progress Note - Hospitalisto n 03-13-2021 Progress Note - Hospitalist [facility] Medical Records Department [address] [place] [address] Progress Note - Hospitalist 03/13/21 1508 MR#: [id number] Acct: [id number] Name: JUDITH BLOCK Rep #: [id number] : 1985 35 From: Camacho Verma MD PCP: CASSIA ARAUJO Status:ADM IN Location: MS3 [id number] Subjective Subjective Patient having aches and pain mainly musculoskeletal pain and loose bowel movement. No major shaking sort tremors or abnormal thoughts or hallucination. Objective Data Objective Data Vital Signs: Vital Signs Temp Pulse Resp BP Pulse Ox 97.8 F 82 16 127/87 H 99 03/13/21 14:00 03/13/21 14:00 03/13/21 14:00 03/13/21 14:00 03/13/21 14:00 Oxygen Delivery Method Room Air Weight: 156 lb 15.506 oz Body Mass Index (BMI) 27.8 Intake Output: Intake and Output for Last 24 Hours 03/11/21 03/12/21 03/13/21 23:59 23:59 23:59 Intake Total 800 / 800 Output Total 300 / 300 Balance 500 / 500 Lab / Micro Data Result Diagrams: 03/12/21 20:34 03/12/21 20:34 Labs: Laboratory Results - last 24 hr 03/12/21 03/12/21 03/12/21 20:34 20:34 20:34 WBC 7.7 RBC 4.65 Hgb 14.5 Hct 42.2 MCV 90.8 MCH 31.2 MCHC 34.4 RDW Std Deviation 47.9 H RDW Coeff of Tony 14.4 Plt Count 316 MPV 9.1 Immature Gran % (Auto) 0.100 Neut % (Auto) 50.6 Lymph % (Auto) 39.2 Oxford % (Auto) 9.2 Eos % (Auto) 0.4 Baso % (Auto) 0.5 Absolute Neuts (auto) 3.9 Absolute Lymphs (auto) 3.01 Nucleated RBC % 0 Sodium 140 Potassium 3.6 Chloride 104 Carbon Dioxide 29.0 Anion Gap 7 BUN 8 Creatinine 0.85 Estim Creat Clear Calc 77.14 Est GFR (MDRD) Af Amer 99 Est GFR (MDRD) Non-Af 82 BUN/Creatinine Ratio 9.5 L Glucose 113 H Calcium 8.2 L Total Bilirubin 0.50 AST 52 H ALT 47 Alkaline Phosphatase 91 Total Protein 8.2 Albumin 3.6 Globulin 4.6 H Albumin/Globulin Ratio 0.8 L Serum , Qual Urine Opiates Screen Urine Methadone Screen Ur Barbiturates Screen Ur Phencyclidine Scrn Ur Amphetamines Screen U Methamphetamin-MDMA U Benzodiazepines Scrn Urine Cocaine Screen U Cannabinoids Screen Ur Drug Screen Comment Ethyl Alcohol 355.0 H* 03/12/21 03/12/21 20:34 21:30 WBC RBC Hgb Hct MCV MCH MCHC RDW Std Deviation RDW Coeff of Tony Plt Count MPV Immature Gran % (Auto) Neut % (Auto) Lymph % (Auto) Oxford % (Auto) Eos % (Auto) Baso % (Auto) Absolute Neuts (auto) Absolute Lymphs (auto) Nucleated RBC % Sodium Potassium Chloride Carbon Dioxide Anion Gap BUN Creatinine Estim Creat Clear Calc Est GFR (MDRD) Af Amer Est GFR (MDRD) Non-Af BUN/Creatinine Ratio Glucose Calcium Total Bilirubin AST ALT Alkaline Phosphatase Total Protein Albumin Globulin Albumin/Globulin Ratio Serum , Qual NEGATIVE Urine Opiates Screen NEGATIVE Urine Methadone Screen NEGATIVE Ur Barbiturates Screen NEGATIVE Ur Phencyclidine Scrn NEGATIVE Ur Amphetamines Screen NEGATIVE U Methamphetamin-MDMA NEGATIVE U Benzodiazepines Scrn NEGATIVE Urine Cocaine Screen NEGATIVE U Cannabinoids Screen NEGATIVE Ur Drug Screen Comment Ethyl Alcohol Physical Exam Narrative Physical exam General: Alert, Oriented x3, Cooperative HEENT: Atraumatic, PERRLA, EOMI, Normocephalic Oral: No Gingival or Mucosal Lesions/ Ulcerations Neck: Supple, No JVD, Negative Carotid Bruits Lungs: Air entry equal in bilateral lung bases. No crepitation/rhonchi Cardiovascular: Regular rate, Regular Rhythm, Normal S1, Normal S2, No murmurs Abdomen: Bowel Sounds Present, Soft, Non Tender, Non-Distended : No renal angle tenderness. No suprapubic tenderness. Extremities: No edema, Capillary Refill Less than 3 Seconds Skin: No rashes, No breakdown Musculoskeletal: No Tenderness to Palpation of Joints or Extremities Neurological: Cranial nerves II-XII grossly intact, Deep Tendon Reflexes 2+/4 and Symmetrical, Neuro grossly intact Psych/Mental Status: Normal Affect, Appropriate. Assessment Plan Assessment/Plan (1) Alcohol intoxication: QUALIFIERS: Complication of substance-induced condition: uncomplicated Qualified Code(s): F10.920 - Alcohol use, unspecified with intoxication, uncomplicated (2) Alcohol dependence: QUALIFIERS: Complication of substance-induced condition: uncomplicated Substance use status: with intoxication Qualified Code(s): F10.220 - Alcohol dependence with intoxication, uncomplicated (3) Depression: QUALIFIERS: Depression Type: unspecified Qualified Code(s): F32.9 - Major depressive disorder, single episode, unspecified (4) Tobacco abuse: PLAN: This 35-year-old female a (more content not included)... Normal [facility] Alcohol, Blood (Medical)-Ser umon 03-12-2021 SERUM ETOH 355.0 mg/dL Invalid Interpretation Code [facility] Comment on above: Result Comment: Crit ical Result(s) Called at: 21:30:38 03/12/2021 by: Virginia Barnes. Results read back by same. The serum:whole blood ethanol ratio is approximately 1.14 and varies slightly with hematocrit. Medical Alcohol reference interval and critical value in non-tolerant individuals; 50 - 100 Impairment 100 Intoxication 100 - 250 Severe Poisoning 250 - 400 Deep/possible fatal coma Performed By: #### L 500.4050, L501.9100, L100.0100, L700.6800 #### [facility] [address] [place], [address] CBC W/Diff, Automatedon - Absolute Lymph 3.01 X10 3/uL Normal 0.83-4.51 [facility] Comment on above: Performed By: #### L 500.4050, L501.9100, L100.0100, L700.6800 #### [facility] [address] [place], [address] Absolute Neut 3.9 X10 3/uL Normal 2.0-7.7 [facility] Comment on above: Performed By: #### L 500.4050, L501.9100, L100.0100, L700.6800 #### [facility] [address] [place], [address] Basophils/100 WBC (Bld) 0.5 % Normal 0-1 [facility] Comment on above: Performed By: #### L 500.4050, L501.9100, L100.0100, L700.6800 #### [facility] [address] [place], [address] Eosinophils/100 WBC (Bld) 0.4 % Normal 0-5 [facility] Comment on above: Performed By: #### L 500.4050, L501.9100, L100.0100, L700.6800 #### [facility] [address] [place], [address] Erythrocyte distribution width (RBC) [Ratio] 14.4 % Normal 11.6-14.6 [facility] Comment on above: Performed By: #### L 500.4050, L501.9100, L100.0100, L700.6800 #### [facility] [address] [place], [address] Hematocrit (Bld) [Volume fraction] 42.2 % Normal 37-47 [facility] Comment on above: Performed By: #### L 500.4050, L501.9100, L100.0100, L700.6800 #### [facility] [address] [place], [address] Hemoglobin (Bld) [Mass/Vol] 14.5 g/dL Normal 12.0-15.0 [facility] Comment on above: Performed By: #### L 500.4050, L501.9100, L100.0100, L700.6800 #### [facility] [address] [place], [address] IG% 0.100 Normal 0.0-0.9 [facility] Comment on above: Result Comment: IG% - Immature Granulocytes (promyelocytes, myelocytes and metamyelocytes) > 1% indicates that a LEFT SHIFT is Present. Performed By: #### L 500.4050, L501.9100, L100.0100, L700.6800 #### [facility] [address] [place], [address] Lymphocytes/100 WBC (Bld) 39.2 % Normal 19-41 [facility] Comment on above: Performed By: #### L 500.4050, L501.9100, L100.0100, L700.6800 #### [facility] [address] [place], [address] MCH (RBC) [Entitic mass] 31.2 pg Normal 27.0-32.0 [facility] Comment on above: Performed By: #### L 500.4050, L501.9100, L100.0100, L700.6800 #### [facility] [address] [place], [address] MCHC (RBC) [Mass/Vol] 34.4 g/dL Normal 32-36 [facility] Comment on above: Performed By: #### L 500.4050, L501.9100, L100.0100, L700.6800 #### [facility] [address] [place], [address] MCV (RBC) [Entitic vol] 90.8 fL Normal 81-99 [facility] Comment on above: Performed By: #### L 500.4050, L501.9100, L100.0100, L700.6800 #### [facility] [address] [place], [address] Monocytes/100 WBC (Bld) 9.2 % Normal 0-10 [facility] Comment on above: Performed By: #### L 500.4050, L501.9100, L100.0100, L700.6800 #### [facility] [address] [place], [address] Neutrophils/100 WBC (Bld) 50.6 % Normal 47-70 [facility] Comment on above: Performed By: #### L 500.4050, L501.9100, L100.0100, L700.6800 #### [facility] [address] [place], [address] Nucleated RBC (Bld) [#/Vol] 0 10*3/uL Normal 0-5 [facility] Comment on above: Performed By: #### L 500.4050, L501.9100, L100.0100, L700.6800 #### [facility] [address] [place], [address] Platelet mean volume (Bld) [Entitic vol] 9.1 fL Normal 6.2-12.0 [facility] Comment on above: Performed By: #### L 500.4050, L501.9100, L100.0100, L700.6800 #### [facility] [address] [place], [address] Platelets (Bld) [#/Vol] 316 10*3/uL Normal 150-450 [facility] Comment on above: Performed By: #### L 500.4050, L501.9100, L100.0100, L700.6800 #### [facility] [address] [place], [address] RBC (Bld) [#/Vol] 4.65 10*6/uL Normal 4.2-5.4 [facility] Comment on above: Performed By: #### L 500.4050, L501.9100, L100.0100, L700.6800 #### [facility] [address] [place], [address] RDW SD 47.9 fl High 35.1-43.9 [facility] Comment on above: Performed By: #### L 500.4050, L501.9100, L100.0100, L700.6800 #### [facility] [address] [place], [address] WBC (Bld) [#/Vol] 7.7 10*3/uL Normal 4.4-11.0 [facility] Comment on above: Performed By: #### L 500.4050, L501.9100, L100.0100, L700.6800 #### [facility] [address] [place], [address] Comprehensive Metabolic Prof gaon 03-12-2021 Albumin [Mass/Vol] 3.6 g/dL Normal 3.2-5.0 [facility] Comment on above: Performed By: #### L 500.4050, L501.9100, L100.0100, L700.6800 #### [facility] [address] [place], [address] Albumin/Globulin [Mass ratio] 0.8 {ratio} Low 0.9-2.4 [facility] Comment on above: Performed By: #### L 500.4050, L501.9100, L100.0100, L700.6800 #### [facility] [address] [place], [address] ALK P 91 U/L Normal 45-117 [facility] Comment on above: Performed By: #### L 500.4050, L501.9100, L100.0100, L700.6800 #### [facility] [address] [place], [address] ALT [Catalytic activity/Vol] 47 U/L Normal 13-56 [facility] Comment on above: Performed By: #### L 500.4050, L501.9100, L100.0100, L700.6800 #### [facility] [address] [place], [address] AST [Catalytic activity/Vol] 52 U/L High 15-37 [facility] Comment on above: Performed By: #### L 500.4050, L501.9100, L100.0100, L700.6800 #### [facility] [address] [place], [address] Bilirubin [Mass/Vol] 0.50 mg/dL Normal 0.20-1.00 [facility] Comment on above: Result Comment: For patients on eltrombopag therapy, use of Dimension [place] TBIL is not recommended. Performed By: #### L 500.4050, L501.9100, L100.0100, L700.6800 #### [facility] [address] [place], [address] BUN/CRE 9.5 RATIO Low 10-20 [facility] Comment on above: Performed By: #### L 500.4050, L501.9100, L100.0100, L700.6800 #### [facility] [address] [place], [address] CA,Total 8.2 mg/dL Low 8.5-10.1 [facility] Comment on above: Performed By: #### L 500.4050, L501.9100, L100.0100, L700.6800 #### [facility] [address] [place], [address] Chloride [Moles/Vol] 104 mmol/L Normal 98-107 [facility] Comment on above: Performed By: #### L 500.4050, L501.9100, L100.0100, L700.6800 #### [facility] [address] [place], [address] CO2 [Moles/Vol] 29.0 mmol/L Normal 21.0-32.0 [facility] Comment on above: Performed By: #### L 500.4050, L501.9100, L100.0100, L700.6800 #### [facility] [address] [place], [address] Creatinine [Mass/Vol] 0.85 mg/dL Normal 0.55-1.02 [facility] Comment on above: Result Comment: The validity of the calculated GFR GFRAA in patients over 70 years has not been determined. Clinical correlation is essential. Performed By: #### L 500.4050, L501.9100, L100.0100, L700.6800 #### [facility] [address] [place], [address] ECRCL 77.14 ml/min Normal [facility] Comment on above: Performed By: #### L 500.4050, L501.9100, L100.0100, L700.6800 #### [facility] [address] [place], [address] EST GFR - AA 99 mL/min Normal >60 [facility] Comment on above: Result Comment: Afri can Guyanese GFR Calc Performed By: #### L 500.4050, L501.9100, L100.0100, L700.6800 #### [facility] [address] [place], [address] GAP 7 Normal 5-15 [facility] Comment on above: Performed By: #### L 500.4050, L501.9100, L100.0100, L700.6800 #### [facility] [address] [place], [address] GFR/1.73 sq M.predicted among non-blacks MDRD (S/P/Bld) [Vol rate/Area] 82 mL/min/{1.73_m2} Normal >60 [facility] Comment on above: Result Comment: Non- GFR Calc Performed By: #### L 500.4050, L501.9100, L100.0100, L700.6800 #### [facility] [address] [place], [address] Globulin (S) [Mass/Vol] 4.6 g/dL High 2.2-4.2 [facility] Comment on above: Performed By: #### L 500.4050, L501.9100, L100.0100, L700.6800 #### [facility] [address] [place], [address] Glucose [Mass/Vol] 113 mg/dL High 74-106 [facility] Comment on above: Result Comment: Fast ing Glucose result from 100 to 125 mg/dL suggests IMPAIRED HOMEOSTASIS per A.D.A. criteria. Please note revised GLUCOSE reference range effective 2017. Performed By: #### L 500.4050, L501.9100, L100.0100, L700.6800 #### [facility] [address] [place], [address] Potassium [Moles/Vol] 3.6 mmol/L Normal 3.5-5.1 [facility] Comment on above: Performed By: #### L 500.4050, L501.9100, L100.0100, L700.6800 #### [facility] [address] [place], [address] Sodium [Moles/Vol] 140 mmol/L Normal 136-145 [facility] Comment on above: Performed By: #### L 500.4050, L501.9100, L100.0100, L700.6800 #### [facility] [address] [place], [address] T PROT 8.2 g/dL Normal 6.4-8.2 [facility] Comment on above: Performed By: #### L 500.4050, L501.9100, L100.0100, L700.6800 #### [facility] [address] [place], [address] Urea nitrogen [Mass/Vol] 8 mg/dL Normal 7-18 [facility] Comment on above: Performed By: #### L 500.4050, L501.9100, L100.0100, L700.6800 #### [facility] [address] [place], [address] ,Serum,hCG Quali.on 03-12-2021 HCG, SERUM QUAL Negative Normal [facility] Comment on above: Performed By: #### L 500.4050, L501.9100, L100.0100, L700.6800 #### [facility] [address] [place], [address] Urine Drug Screen (VISTA)on 03-12-2021 AMPHETAMINES Negative Normal <1000 ng/mL [facility] Comment on above: Performed By: #### L 505.5000 #### [facility] [address] [place], [address] BARBITIURATES Negative Normal < 200 ng/mL [facility] Comment on above: Performed By: #### L 505.5000 #### [facility] [address] [place], [address] BENZODIAZIPINE Negative Normal < 200 ng/mL [facility] Comment on above: Performed By: #### L 505.5000 #### [facility] [address] [place], [address] COCAINE Negative Normal < 300 ng/mL [facility] Comment on above: Performed By: #### L 505.5000 #### [facility] [address] [place], [address] ECSTACY Negative Normal < 500 ng/mL [facility] Comment on above: Performed By: #### L 505.5000 #### [facility] [address] [place], [address] METHADONE Negative Normal < 300 ng/mL [facility] Comment on above: Performed By: #### L 505.5000 #### [facility] [address] [place], [address] OPIATES Negative Normal < 300 ng/mL [facility] Comment on above: Performed By: #### L 505.5000 #### [facility] [address] [place], [place], [address] PCP Negative Normal < 25 ng/mL [facility] Comment on above: Performed By: #### L 505.5000 #### [facility] [address] [place], [place], [address] THC Negative Normal < 50 ng/mL [facility] Comment on above: Performed By: #### L 505.5000 #### [facility] [address] [place], [place], [address] VISTA UDS PH 7 Normal [facility] Comment on above: Performed By: #### L 505.5000 #### [facility] [address] [place], [place], [address] HEPATITIS PROFILEon 05-21-20 19 HEPATITIS B SURFACE ANTIGEN Negative Normal [facility] HEPATITIS A VIRUS ANTIBODY IGM Negative Normal [facility] HEPATITIS B CORE AB IGM Negative Normal [facility] Comment on above: Result Comment: Test Performed By: [facility] [address] [place] [address] Senior Inspector: Kristen Bradford MD, PhD --- 05/21/19 1435 --- ANTI HBc IGM previously reported as: Negative HEPATITIS C AB Negative Normal [facility] RAPID PLASMA REAGINon 2018 RAPID PLASMA REAGIN NONREACTIVE Normal NONREACTIVE [facility] Comment on above: Performed By: #### R MS #### [address] [address] ALCOHOLon 05-19-2019 Ethanol [Mass/Vol] 296.0 mg/dL Normal [facility] Comment on above: Result Comment: < 3 mg/dl NONE DETECTED 50-100 mg/dl MAY SHOW SIGNS OF INTOXICATION 300-500 mg/dl COMATOSE LEVEL Performed By: #### M N, ALC #### [address] [address] CBC with AUTO DIFFon 019 BAS0 % 0.40 % Normal 0-2 [facility] Comment on above: Performed By: #### C BC #### [facility] [address] [place] [address] Basophils (Bld) [#/Vol] 0.0 10*3/uL Normal 0-0.1 [facility] Comment on above: Performed By: #### C BC #### [facility] [address] [facility] [place] [address] Eosinophils (Bld) [#/Vol] 0.0 10*3/uL Normal 0.0-1.80 [facility] Comment on above: Performed By: #### C BC #### [facility] [address] [facility] [place] [address] Eosinophils/100 WBC (Bld) 0.4 % Normal 0-8 [facility] Comment on above: Performed By: #### C BC #### [facility] [address] [facility] [place] [address] GRAN # 4.0 K/uL Normal 2.2-9.1 [facility] Comment on above: Performed By: #### C BC #### [address] [place] [address] GRAN % 59.5 % Normal 42-80 [facility] Comment on above: Performed By: #### C BC #### [address] [place] [address] Hematocrit (Bld) [Volume fraction] 44.8 % Normal 37.0-47.0 [facility] Comment on above: Performed By: #### C BC #### [facility] [address] [facility] [place] [address] Hemoglobin (Bld) [Mass/Vol] 15.4 g/dL Normal 12.0-16.0 [facility] Comment on above: Performed By: #### C BC #### [facility] [address] [facility] [place] [address] Lymphocytes (Bld) [#/Vol] 2.3 10*3/uL Normal 1.0-4.0 [facility] Comment on above: Performed By: #### C BC #### [facility] [address] [facility] [place] [address] Lymphocytes/100 WBC (Bld) 33.9 % Normal 16-48 [facility] Comment on above: Performed By: #### C BC #### [facility] [address] [facility] [place] [address] MCH (RBC) [Entitic mass] 34.3 g/dL Normal 31.0-36.0 [facility] Comment on above: Performed By: #### C BC #### [place] [address] [facility] [place] [address] MCV (RBC) [Entitic vol] 92.0 fL Normal 80-97 [facility] Comment on above: Performed By: #### C BC #### [facility] [address] [facility] [place] [address] MEAN CORPUSCULAR HGB 31.5 pg Normal 26.0-32.0 [facility] Comment on above: Performed By: #### C BC #### [facility] [address] [facility] [place] [address] Monocytes (Bld) [#/Vol] 0.4 10*3/uL Normal 0.1-1.7 [facility] Comment on above: Performed By: #### C BC #### [facility] [address] [facility] [place] [address] Monocytes/100 WBC (Bld) 5.8 % Normal 3-9 [facility] Comment on above: Performed By: #### C BC #### [facility] [address] [facility] [place] [address] Platelet mean volume (Bld) [Entitic vol] 9.2 fL Normal 6.6-10.5 [facility] Comment on above: Performed By: #### C BC #### [facility] [address] [facility] [place] [address] Platelets (Bld) [#/Vol] 110 10*3/uL Low 140-450 [facility] Comment on above: Performed By: #### C BC #### [facility] [address] [facility] [place] [address] RBC (Bld) [#/Vol] 4.87 10*6/uL Normal 4.20-5.50 [facility] Comment on above: Performed By: #### C BC #### [facility] [address] [facility] [place] [address] RED CELL DISTRI WIDTH 13.9 % Normal 11.0-15.5 [facility] Comment on above: Performed By: #### C BC #### [facility] [address] [facility] [place] [address] WBC (Bld) [#/Vol] 6.7 10*3/uL Normal 4.0-11.0 [facility] Comment on above: Performed By: #### C BC #### [facility] [address] [facility] [place] [address] COMPREHENSIVE METABOLIC PANE Prudencio 07-24-2019 Albumin [Mass/Vol] 4.0 g/dL Normal 3.0-5.0 [facility] Comment on above: Performed By: #### M N, ALC #### [facility] [address] [facility] [place] [address] Albumin/Globulin [Mass ratio] 0.8 {ratio} Low 1.1-1.8 [facility] Comment on above: Performed By: #### M N, ALC #### [facility] [address] [facility] [place] [address] ALP [Catalytic activity/Vol] 105 U/L Normal 45-117 [facility] Comment on above: Performed By: #### M N, ALC #### [facility] [address] [facility] [place] [address] ALT [Catalytic activity/Vol] 66 U/L Normal 12-78 [facility] Comment on above: Performed By: #### M N, ALC #### [facility] [address] [facility] [place] [address] Anion gap [Moles/Vol] 22.9 mmol/L Normal 11-23 [facility] Comment on above: Performed By: #### M N, ALC #### [facility] [address] [facility] [place] [address] Bilirubin [Mass/Vol] 0.6 mg/dL Normal 0-1.0 [facility] Comment on above: Performed By: #### M N, ALC #### [facility] [address] [facility] [place] [address] Calcium [Mass/Vol] 8.0 mg/dL Low 8.5-10.1 [facility] Comment on above: Performed By: #### M N, ALC #### [facility] [address] [facility] [place] [address] Chloride [Moles/Vol] 98 mmol/L Normal 98-107 [facility] Comment on above: Performed By: #### M N, ALC #### [facility] [address] [facility] [place] [address] CO2 [Moles/Vol] 18.0 mmol/L Low 21-32 [facility] Comment on above: Performed By: #### M N, ALC #### [facility] [address] [facility] [place] [address] Creatinine [Mass/Vol] 0.90 mg/dL Normal 0.4-1.2 [facility] Comment on above: Performed By: #### M N, ALC #### [facility] [address] [facility] [place] [address] GFR AM > 60.0 [facility] Comment on above: Result Comment: THE NORMAL LEVEL OF GFR VARIES ACCORDING TO AGE, SEX, AND BODY SIZE. A GFR LEVEL OF LESS THAN 60 ML/MIN REPRESENTS LOSS OF THE ADULT LEVEL OF NORMAL KIDNEY FUNCTION. Performed By: #### M N, ALC #### [facility] [address] [facility] [place] [address] GFR/1.73 sq M.predicted MDRD (S/P/Bld) [Vol rate/Area] mL/min/{1.73_m2} [facility] Comment on above: Performed By: #### M N, ALC #### [address] [place] [address] Globulin (S) [Mass/Vol] 5.0 g/dL High 2.5-4.6 [facility] Comment on above: Performed By: #### M N, ALC #### [address] [place] [address] Glucose [Mass/Vol] 59 mg/dL Low 70-100 [facility] Comment on above: Performed By: #### M N, ALC #### [address] [place] [address] Potassium [Moles/Vol] 4.3 mmol/L Normal 3.6-5.2 [facility] Comment on above: Performed By: #### M N, ALC #### [address] [place] [address] Protein [Mass/Vol] 9.0 g/dL High 6.0-8.3 [facility] Comment on above: Performed By: #### M N, ALC #### [address] [place] [address] SGOT/AST 99 U/L High 9-34 [facility] Comment on above: Performed By: #### M N, ALC #### [facility] [address] [facility] [place] [address] Sodium [Moles/Vol] 134 mmol/L Low 136-147 [facility] Comment on above: Performed By: #### M N, ALC #### [address] [place] [address] Urea nitrogen [Mass/Vol] 8.0 mg/dL Normal 7-18 [facility] Comment on above: Performed By: #### M N, ALC #### [address] [address] ED.PDOCon 05-19-2019 ED.PDOC JUDITH BLOCK Female [id number] Attending provider: [facility] [id number] Jessica Suazo 1985 33 DOS: 05/19/19 Hx/Exam - History of Present Illness Chief Complaint: DETOX MEDICAL CLEARANCE Additional Comments: Requesting detox for alcoholism. has been using muscle relaxers for last 4 days to help with possible side effects while trying to detox at home. 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 denies other complaints - Review of Systems All Other Systems: Pertinent Positives in HPI, All Other Systems Negative - Social History Smoking Status: Current every day smoker Hx Alcohol Use: Yes Hx Drug Use: None Living Conditions: Alone - Physical Exam General Appearance: awake, alert, no apparent distress Eyes: conjunctivae clear, no discharge Head, Ears, Nose, and Throat: pharynx normal, mucous membranes moist, nares clear, atraumatic Neck: supple, non-tender Respiratory: lungs clear Cardiovascular: regular rate, rhythm Abdomen/GI: non tender, soft, non-distended, normal bowel sounds Extremity: normal range of motion, no pedal edema, no calf tenderness Pulses: Radial: 2+ Neurologic: no motor/sensory deficits, normal gait, normal strength, normal sensation, speech clear/fluent Psychiatric: oriented x3, calm, not clinically intoxicated Skin Exam: warm/dry, normal color - Source of History Source of History: Nursing Notes/Vital Signs/Triage Reviewed and Agree Note(s) - Physician Notes Additional Notes, See Orders for Details: was medically cleared for [facility] and transfered to [facility] 05/20/19 00:09 EKG - EKG EKG Interpretation: Not Applicable Discharge Screen - Discharge Discharge Problem: Alcohol abuse Disposition: [facility] Condition: Good Referrals: Call,On [Primary Care Provider] - Shaye Ocampo [Family Provider] - Dictated By: Jessica Suazo NP Dictated Date/Time:05/19/192119 Electronically Signed Date/Time: 05/20/19 0010 [facility] HCG URINEon 05-19-2019 Beta HCG ( test) Ql (U) Negative Normal [facility] Comment on above: Order Comment: What Is Urine Source? Clean Catch [place] Performed By: #### H CGUR #### [address] [address] Basic Metabolic Panelon 09 Calcium mass conc 7.3 mg/dL Low 8.4-10.2 [facility] Comment on above: Performed By: #### C MET, LIPASE, PT, PTT, EDCTNI ####Unless otherwise noted, all testing performed by [address] [id number]: [id number] Director: Armando Zamora M.D.#### CBCDIF ####Unless otherwise noted, all testing performed by [address] [phone]: [id number] Director: Armando Zamora M.D. Chloride molar conc 103 mmol/L Normal 98-108 [facility] Comment on above: Performed By: #### C MET, LIPASE, PT, PTT, EDCTNI ####Unless otherwise noted, all testing performed by [address] [phone]: [id number] Director: Armando Zamora M.D.#### CBCDIF ####Unless otherwise noted, all testing performed by [address] [phone]: [id number] Director: Armando Zamora M.D. CO2 molar conc 27 mmol/L Normal 21-32 [facility] Comment on above: Performed By: #### C MET, LIPASE, PT, PTT, EDCTNI ####Unless otherwise noted, all testing performed by [address], [place] [phone]: [id number] Director: Armando Zamora M.D.#### CBCDIF ####Unless otherwise noted, all testing performed by [address] [phone]: [id number] Director: Armando Zamora M.D. Creatinine mass conc 0.92 mg/dL Normal 0.40-1.10 [facility] Comment on above: Performed By: #### C MET, LIPASE, PT, PTT, EDCTNI ####Unless otherwise noted, all testing performed by [address] [phone]: [id number] Director: Armando Zamora M.D.#### CBCDIF ####Unless otherwise noted, all testing performed by [address] [phone]: [id number] Director: Armando Zamora M.D. GFR/1.73 sq M predicted among blacks MDRD vol rate/area (S/P/Bld) mL/min/{1.73_m2} Normal [facility] Comment on above: Result Comment: Afri can Guyanese GFR Calc Performed By: #### C MET, LIPASE, PT, PTT, EDCTNI ####Unless otherwise noted, all testing performed by [address] [phone]: [id number] Director: Armando Zamora M.D.#### CBCDIF ####Unless otherwise noted, all testing performed by [address] [phone]: [id number] Director: Armando Zamora M.D. GFR/1.73 sq M predicted among non-blacks MDRD vol rate/area (S/P/Bld) mL/min/{1.73_m2} Normal [facility] Comment on above: Result Comment: Non- GFR CalceGFR is an estimated Glomerular Filtration Rate based on the valueof the patient's serum creatinine. In outpatients, eGFR should be usedas a helpful tool in screening for CKD. In inpatients or patients withacute renal failure, eGFR represents the GFR at the moment of the drawand should be used with caution. Performed By: #### C MET, LIPASE, PT, PTT, EDCTNI ####Unless otherwise noted, all testing performed by [address] [phone]: [id number] Director: Armando Zamora M.D.#### CBCDIF ####Unless otherwise noted, all testing performed by [address] [phone]: [id number] Director: Armando Zamora M.D. Glucose mass conc 79 mg/dL Normal 70-99 [facility] Comment on above: Result Comment: This test result might be falsely depressed or falsely elevated onsamples drawn from patients taking Sulfasalazine and Sulfapyridine.Venipuncture should occur prior to taking either of these drugs. Performed By: #### C MET, LIPASE, PT, PTT, EDCTNI ####Unless otherwise noted, all testing performed by [address] [phone]: [id number] Director: Armando Zamora M.D.#### CBCDIF ####Unless otherwise noted, all testing performed by [address] [phone]: [id number] Director: Armando Zamora M.D. Potassium molar conc 2.8 mmol/L Low 3.5-5.1 [facility] Comment on above: Performed By: #### C MET, LIPASE, PT, PTT, EDCTNI ####Unless otherwise noted, all testing performed by [address] [phone]: [id number] Director: Armando Zamora M.D.#### CBCDIF ####Unless otherwise noted, all testing performed by [address] [phone]: [id number] Director: Armando Zamora M.D. Sodium molar conc 137 mmol/L Normal 135-145 [facility] Comment on above: Performed By: #### C MET, LIPASE, PT, PTT, EDCTNI ####Unless otherwise noted, all testing performed by [address] [phone]: [id number] Director: Armando Zamora M.D.#### CBCDIF ####Unless otherwise noted, all testing performed by [address] [phone]: [id number] Director: Armadno Zamora M.D. Urea nitrogen mass conc 2 mg/dL Low 8-25 [facility] Comment on above: Performed By: #### C MET, LIPASE, PT, PTT, EDCTNI ####Unless otherwise noted, all testing performed by [address] [phone]: [id number] Director: Armando Zamora M.D.#### CBCDIF ####Unless otherwise noted, all testing performed by [address] [id number]: [id number] Director: Armando Zamora M.D. CBC with Diffon 06-29-2018 Basophils Auto #/vol (Bld) 0.0 K/mcL Normal 0-0.2 [facility] Comment on above: Performed By: #### C MET, LIPASE, PT, PTT, EDCTNI ####Unless otherwise noted, all testing performed by [address] [phone]: [id number] Director: Armando Zamora M.D.#### CBCDIF ####Unless otherwise noted, all testing performed by [address] [phone]: [id number] Director: Armando Zamora M.D. Basophils/100 WBC Auto (Bld) 0.3 % Normal [facility] Comment on above: Performed By: #### C MET, LIPASE, PT, PTT, EDCTNI ####Unless otherwise noted, all testing performed by [address] [phone]: [id number] Director: Armando Zamora M.D.#### CBCDIF ####Unless otherwise noted, all testing performed by [address] [phone]: [id number] Director: Armando Zamora M.D. Eosinophils Auto #/vol (Bld) 0.0 K/mcL Normal 0-0.5 [facility] Comment on above: Performed By: #### C MET, LIPASE, PT, PTT, EDCTNI ####Unless otherwise noted, all testing performed by [address] [phone]: [id number] Director: Armando Zamora M.D.#### CBCDIF ####Unless otherwise noted, all testing performed by [address] [phone]: [id number] Director: Armando Zamora M.D. Eosinophils/100 WBC Auto (Bld) 0.7 % Normal [facility] Comment on above: Performed By: #### C MET, LIPASE, PT, PTT, EDCTNI ####Unless otherwise noted, all testing performed by [address] [phone]: [id number] Director: Armando Zamora M.D.#### CBCDIF ####Unless otherwise noted, all testing performed by [address] [phone]: [id number] Director: Armando Zamora M.D. Erythrocyte distribution width Auto Ratio (RBC) 14.7 % High 10-14.4 [facility] Comment on above: Performed By: #### C MET, LIPASE, PT, PTT, EDCTNI ####Unless otherwise noted, all testing performed by [address] [phone]: [id number] Director: Armando Zamora M.D.#### CBCDIF ####Unless otherwise noted, all testing performed by [place] [phone]: [id number] Director: Armando Zamora M.D. Hematocrit Auto Volume Fraction (Bld) 34.7 % Normal 34.4-44.8 [facility] Comment on above: Performed By: #### C MET, LIPASE, PT, PTT, EDCTNI ####Unless otherwise noted, all testing performed by [address] [phone]: [id number] Director: Armando Zamora M.D.#### CBCDIF ####Unless otherwise noted, all testing performed by [address] [phone]: [id number] Director: Armando Zamora M.D. Hemoglobin mass conc (Bld) 12.0 g/dL Normal 11.6-15.4 [facility] Comment on above: Performed By: #### C MET, LIPASE, PT, PTT, EDCTNI ####Unless otherwise noted, all testing performed by [address] [phone]: [id number] Director: Armando Zamora M.D.#### CBCDIF ####Unless otherwise noted, all testing performed by [address] [phone]: [id number] Director: Armando Zamora M.D. Lymphocytes Auto #/vol (Bld) 0.6 K/mcL Low 1.0-3.7 [facility] Comment on above: Performed By: #### C MET, LIPASE, PT, PTT, EDCTNI ####Unless otherwise noted, all testing performed by [address] [phone]: [id number] Director: Armando Zamora M.D.#### CBCDIF ####Unless otherwise noted, all testing performed by [address] [phone]: [id number] Director: Armando aZmora M.D. Lymphocytes/100 WBC Auto (Bld) 12.7 % Normal [facility] Comment on above: Performed By: #### C MET, LIPASE, PT, PTT, EDCTNI ####Unless otherwise noted, all testing performed by [address] [phone]: [id number] Director: Armando Zamora M.D.#### CBCDIF ####Unless otherwise noted, all testing performed by [address] [phone]: [id number] Director: Armando Zamora M.D. MCH Auto Entitic mass (RBC) 32.9 pg Normal 27.9-33.9 [facility] Comment on above: Performed By: #### C MET, LIPASE, PT, PTT, EDCTNI ####Unless otherwise noted, all testing performed by [address] [phone]: [id number] Director: Armando Zamora M.D.#### CBCDIF ####Unless otherwise noted, all testing performed by [address] [phone]: [id number] Director: Armando Zamora M.D. MCHC Auto mass conc (RBC) 34.5 g/dL Normal 33.1-35.1 [facility] Comment on above: Performed By: #### C MET, LIPASE, PT, PTT, EDCTNI ####Unless otherwise noted, all testing performed by [address] [phone]: [id number] Director: Armando Zamora M.D.#### CBCDIF ####Unless otherwise noted, all testing performed by [address] [phone]: [id number] Director: Armando Zamora M.D. MCV Auto Entitic volume (RBC) 95.3 fL Normal 82.6-98.9 [facility] Comment on above: Performed By: #### C MET, LIPASE, PT, PTT, EDCTNI ####Unless otherwise noted, all testing performed by [address] [phone]: [id number] Director: Armando Zamora M.D.#### CBCDIF ####Unless otherwise noted, all testing performed by [address] [phone]: [id number] Director: Armando Zamora M.D. Monocytes Auto #/vol (Bld) 0.5 K/mcL Normal 0.1-0.6 [facility] Comment on above: Performed By: #### C MET, LIPASE, PT, PTT, EDCTNI ####Unless otherwise noted, all testing performed by [address] [phone]: [id number] Director: Armando Zamora M.D.#### CBCDIF ####Unless otherwise noted, all testing performed by [address] [phone]: [id number] Director: Armando Zamora M.D. Monocytes/100 WBC Auto (Bld) 9.3 % Normal [facility] Comment on above: Performed By: #### C MET, LIPASE, PT, PTT, EDCTNI ####Unless otherwise noted, all testing performed by [address] [phone]: [id number] Director: Armando Zamora M.D.#### CBCDIF ####Unless otherwise noted, all testing performed by [address] [phone]: [id number] Director: Armando Zamora M.D. Neutrophils Auto #/vol (Bld) 3.9 K/mcL Normal 1.2-6.9 [facility] Comment on above: Performed By: #### C MET, LIPASE, PT, PTT, EDCTNI ####Unless otherwise noted, all testing performed by [address] [phone]: [id number] Director: Armando Zamora M.D.#### CBCDIF ####Unless otherwise noted, all testing performed by [address] [phone]: [id number] Director: Armando Zamora M.D. Platelet mean volume Auto Entitic volume (Bld) 9.1 fL Normal 7.0-10.6 [facility] Comment on above: Performed By: #### C MET, LIPASE, PT, PTT, EDCTNI ####Unless otherwise noted, all testing performed by [address] [phone]: [id number] Director: Armando Zamora M.D.#### CBCDIF ####Unless otherwise noted, all testing performed by [address] [phone]: [id number] Director: Armando Zamora M.D. Platelets Auto #/vol (Bld) 41 K/mcL Low 162-402 [facility] Comment on above: Result Comment: Smea r reviewed to evaluate platelet count and morphology. Performed By: #### C MET, LIPASE, PT, PTT, EDCTNI ####Unless otherwise noted, all testing performed by [address] [phone]: [id number] Director: Armando Zamora M.D.#### CBCDIF ####Unless otherwise noted, all testing performed by [address] [phone]: [id number] Director: Armando Zamora M.D. RBC Auto #/vol (Bld) 3.64 M/mcL Low 3.7-5.0 [facility] Comment on above: Performed By: #### C MET, LIPASE, PT, PTT, EDCTNI ####Unless otherwise noted, all testing performed by [address] [phone]: [id number] Director: Armando Zamora M.D.#### CBCDIF ####Unless otherwise noted, all testing performed by [place] [phone]: [id number] Director: Armando Zamora M.D. Segmented Neut % 77.0 % Normal [facility] Comment on above: Performed By: #### C MET, LIPASE, PT, PTT, EDCTNI ####Unless otherwise noted, all testing performed by [address] [phone]: [id number] Director: Armando Zamora M.D.#### CBCDIF ####Unless otherwise noted, all testing performed by [address] [phone]: [id number] Director: Armando Zamora M.D. WBC Auto #/vol (Bld) 5.0 K/mcL Normal 3.4-10.6 [facility] Comment on above: Performed By: #### C MET, LIPASE, PT, PTT, EDCTNI ####Unless otherwise noted, all testing performed by [address] [phone]: [id number] Director: Armando Zamora M.D.#### CBCDIF ####Unless otherwise noted, all testing performed by [address] [phone]: [id number] Director: Armando Zamora M.D. Potassiumon 06-29-2018 Potassium molar conc 3.8 mmol/L Normal 3.5-5.1 [facility] Comment on above: Performed By: #### C MET, LIPASE, PT, PTT, EDCTNI ####Unless otherwise noted, all testing performed by [address] [phone]: [id number] Director: Armando Zamora M.D.#### CBCDIF ####Unless otherwise noted, all testing performed by [address] [phone]: [id number] Director: Armando Zamora M.D. Urinalysis, Routineon 2017 Bacteria LM.HPF #/area (Urine sed) Few Abnormal NS;RARE [facility] Comment on above: Performed By: #### C MET, LIPASE, PT, PTT, EDCTNI ####Unless otherwise noted, all testing performed by [address] [phone]: [id number] Director: Armando Zamora M.D.#### CBCDIF ####Unless otherwise noted, all testing performed by [address] [phone]: [id number] Director: Armando Zamora M.D. Bilirubin,Urine Negative Normal NEG;NEGATIVE [facility] Comment on above: Performed By: #### C MET, LIPASE, PT, PTT, EDCTNI ####Unless otherwise noted, all testing performed by [address] [phone]: [id number] Director: Armando Zamora M.D.#### CBCDIF ####Unless otherwise noted, all testing performed by [address] [phone]: [id number] Director: Armando Zamora M.D. Blood,Urine Small Abnormal NEG;NEGATIVE [facility] Comment on above: Performed By: #### C MET, LIPASE, PT, PTT, EDCTNI ####Unless otherwise noted, all testing performed by [address] [phone]: [id number] Director: Armando Zamora M.D.#### CBCDIF ####Unless otherwise noted, all testing performed by [address]8509CLIA: [id number] Director: Armando Zamora M.D. Character Cloudy Normal [facility] Comment on above: Performed By: #### C MET, LIPASE, PT, PTT, EDCTNI ####Unless otherwise noted, all testing performed by [address] [phone]: [id number] Director: Armando Zamora M.D.#### CBCDIF ####Unless otherwise noted, all testing performed by [place] [address]CLIA: [id number] Director: Armando Zamora M.D. Color Nom (U) Light Yellow Normal [facility] Comment on above: Performed By: #### C MET, LIPASE, PT, PTT, EDCTNI ####Unless otherwise noted, all testing performed by [address] [phone]: [id number] Director: Armando Zamora M.D.#### CBCDIF ####Unless otherwise noted, all testing performed by [address]8509CLIA: [id number] Director: Armando Zamora M.D. Glucose Ql (U) Negative Normal NEG;NEGATIVE [facility] Comment on above: Performed By: #### C MET, LIPASE, PT, PTT, EDCTNI ####Unless otherwise noted, all testing performed by [address] [phone]: [id number] Director: Armando Zamora M.D.#### CBCDIF ####Unless otherwise noted, all testing performed by [address]8509CLIA: [id number] Director: Armando Zamora M.D. Ketone,Urine Negative Normal NEGATIVE;NEG [facility] Comment on above: Performed By: #### C MET, LIPASE, PT, PTT, EDCTNI ####Unless otherwise noted, all testing performed by [address] [phone]: [id number] Director: Armando Zamora M.D.#### CBCDIF ####Unless otherwise noted, all testing performed by [place] [phone]: [id number] Director: Armando Zamora M.D. Leuk.Esterase,Urin e Large Abnormal Negative [facility] Comment on above: Performed By: #### C MET, LIPASE, PT, PTT, EDCTNI ####Unless otherwise noted, all testing performed by [address] [phone]: [id number] Director: Armando Zamora M.D.#### CBCDIF ####Unless otherwise noted, all testing performed by [address] [phone]: [id number] Director: Armando Zamora M.D. Mucus, Urine Few Abnormal None Seen [facility] Comment on above: Performed By: #### C MET, LIPASE, PT, PTT, EDCTNI ####Unless otherwise noted, all testing performed by [address] [phone]: [id number] Director: Armando Zamora M.D.#### CBCDIF ####Unless otherwise noted, all testing performed by [address] [phone]: [id number] Director: Armando Zamora M.D. Nitrite,Urine Negative Normal NEG;NEGATIVE [facility] Comment on above: Performed By: #### C MET, LIPASE, PT, PTT, EDCTNI ####Unless otherwise noted, all testing performed by [address] [phone]: [id number] Director: Armando Zamora M.D.#### CBCDIF ####Unless otherwise noted, all testing performed by [address] [phone]: [id number] Director: Armando Zamora M.D. pH Test strip (U) 7.5 [pH] Normal 4.5-8.0 [facility] Comment on above: Performed By: #### C MET, LIPASE, PT, PTT, EDCTNI ####Unless otherwise noted, all testing performed by [address] [phone]: [id number] Director: Armando Zamora M.D.#### CBCDIF ####Unless otherwise noted, all testing performed by [address] [phone]: [id number] Director: Armando Zamora M.D. Protein,Urine Negative Normal NEGATIVE;NEG [facility] Comment on above: Performed By: #### C MET, LIPASE, PT, PTT, EDCTNI ####Unless otherwise noted, all testing performed by [address] [phone]: [id number] Director: Armando Zamora M.D.#### CBCDIF ####Unless otherwise noted, all testing performed by [address] [phone]: [id number] Director: Armando Zamora M.D. RBC LM.HPF #/area (Urine sed) 3-5 Abnormal 0-3+;NS [facility] Comment on above: Performed By: #### C MET, LIPASE, PT, PTT, EDCTNI ####Unless otherwise noted, all testing performed by [address] [phone]: [id number] Director: Armando Zamora M.D.#### CBCDIF ####Unless otherwise noted, all testing performed by [address] [phone]: [id number] Director: Armando Zamora M.D. Specific [place],Urine 1.015 Normal 1.003-1.029 [facility] Comment on above: Performed By: #### C MET, LIPASE, PT, PTT, EDCTNI ####Unless otherwise noted, all testing performed by [address] [phone]: [id number] Director: Armando Zamora M.D.#### CBCDIF ####Unless otherwise noted, all testing performed by [address] [phone]: [id number] Director: Armando Zamora M.D. Squamous Epithelial 0-3 Normal 0-3+;[facility] Comment on above: Performed By: #### C MET, LIPASE, PT, PTT, EDCTNI ####Unless otherwise noted, all testing performed by [address] [phone]: [id number] Director: Armando Zamora M.D.#### CBCDIF ####Unless otherwise noted, all testing performed by [address] [phone]: [id number] Director: Armando Zamora M.D. Urobilinogen,Urine 0.2 EU/dL Normal 0.2 [facility] Comment on above: Performed By: #### C MET, LIPASE, PT, PTT, EDCTNI ####Unless otherwise noted, all testing performed by [address] [phone]: [id number] Director: Armando Zamora M.D.#### CBCDIF ####Unless otherwise noted, all testing performed by [address], [place] [phone]: [id number] Director: Armando Zamora M.D. WBC LM.HPF #/area (Urine sed) Too Numerous to Count Abnormal 0-3+;3-5+;NS [facility] Comment on above: Performed By: #### C MET, LIPASE, PT, PTT, EDCTNI ####Unless otherwise noted, all testing performed by [address] [phone]: [id number] Director: Armando Zamora M.D.#### CBCDIF ####Unless otherwise noted, all testing performed by [address] [phone]: [id number] Director: Armando Zamora M.D. Alcohol, Medicalon 8 Ethanol mass conc Negative Normal [facility] Comment on above: Performed By: #### A LC ####Unless otherwise noted, all testing performed by [address] [phone]: [id number] Director: Armando Zamora M.D. CBC with Diffon 06-28-2018 Basophils Auto #/vol (Bld) 0.0 K/mcL Normal 0-0.2 [facility] Comment on above: Performed By: #### C MET, LIPASE, PT, PTT, EDCTNI ####Unless otherwise noted, all testing performed by [address] [phone]: [id number] Director: Armando Zamora M.D.#### CBCDIF ####Unless otherwise noted, all testing performed by [address], [place] [phone]: [id number] Director: Armando Zamora M.D. Basophils/100 WBC Auto (Bld) 0.3 % Normal [facility] Comment on above: Performed By: #### C MET, LIPASE, PT, PTT, EDCTNI ####Unless otherwise noted, all testing performed by [address] [phone]: [id number] Director: Armando Zamora M.D.#### CBCDIF ####Unless otherwise noted, all testing performed by [address] [phone]: [id number] Director: Armando Zamora M.D. Eosinophils Auto #/vol (Bld) 0.0 K/mcL Normal 0-0.5 [facility] Comment on above: Performed By: #### C MET, LIPASE, PT, PTT, EDCTNI ####Unless otherwise noted, all testing performed by [address] [phone]: [id number] Director: Armando Zamora M.D.#### CBCDIF ####Unless otherwise noted, all testing performed by [address] [phone]: [id number] Director: Armando Zamora M.D. Eosinophils/100 WBC Auto (Bld) 0.1 % Normal [facility] Comment on above: Performed By: #### C MET, LIPASE, PT, PTT, EDCTNI ####Unless otherwise noted, all testing performed by [address] [phone]: [id number] Director: Armando Zamora M.D.#### CBCDIF ####Unless otherwise noted, all testing performed by [address] [phone]: [id number] Director: Armando Zamora M.D. Erythrocyte distribution width Auto Ratio (RBC) 14.5 % High 10.0-14.4 [facility] Comment on above: Performed By: #### C MET, LIPASE, PT, PTT, EDCTNI ####Unless otherwise noted, all testing performed by [address] [phone]: [id number] Director: Armando Zamora M.D.#### CBCDIF ####Unless otherwise noted, all testing performed by [address] [phone]: [id number] Director: Armando Zamora M.D. Hematocrit Auto Volume Fraction (Bld) 39.7 % Normal 34.4-44.8 [facility] Comment on above: Performed By: #### C MET, LIPASE, PT, PTT, EDCTNI ####Unless otherwise noted, all testing performed by [address] [phone]: [id number] Director: Armando Zamora M.D.#### CBCDIF ####Unless otherwise noted, all testing performed by [address] [phone]: [id number] Director: Armando Zamora M.D. Hemoglobin mass conc (Bld) 13.6 g/dL Normal 11.6-15.4 [facility] Comment on above: Performed By: #### C MET, LIPASE, PT, PTT, EDCTNI ####Unless otherwise noted, all testing performed by [address] [phone]: [id number] Director: Armando Zamora M.D.#### CBCDIF ####Unless otherwise noted, all testing performed by [address] [phone]: [id number] Director: Armando Zamora M.D. Lymphocytes Auto #/vol (Bld) 0.4 K/mcL Low 1.0-3.7 [facility] Comment on above: Performed By: #### C MET, LIPASE, PT, PTT, EDCTNI ####Unless otherwise noted, all testing performed by [address] [phone]: [id number] Director: Armando Zamora M.D.#### CBCDIF ####Unless otherwise noted, all testing performed by [address] [phone]: [id number] Director: Armando Zamora M.D. Lymphocytes/100 WBC Auto (Bld) 5.5 % Normal [facility] Comment on above: Performed By: #### C MET, LIPASE, PT, PTT, EDCTNI ####Unless otherwise noted, all testing performed by [address] [phone]: [id number] Director: Armando Zamora M.D.#### CBCDIF ####Unless otherwise noted, all testing performed by [address] [phone]: [id number] Director: Armando Zamora M.D. MCH Auto Entitic mass (RBC) 33.0 pg Normal 27.9-33.9 [facility] Comment on above: Performed By: #### C MET, LIPASE, PT, PTT, EDCTNI ####Unless otherwise noted, all testing performed by [address] [phone]: [id number] Director: Armando Zamora M.D.#### CBCDIF ####Unless otherwise noted, all testing performed by [address] [phone]: [id number] Director: Armando Zamora M.D. MCHC Auto mass conc (RBC) 34.3 g/dL Normal 33.1-35.1 [facility] Comment on above: Performed By: #### C MET, LIPASE, PT, PTT, EDCTNI ####Unless otherwise noted, all testing performed by [address] [phone]: [id number] Director: Armando Zamora M.D.#### CBCDIF ####Unless otherwise noted, all testing performed by [address] [phone]: [id number] Director: Armando Zamora M.D. MCV Auto Entitic volume (RBC) 96.3 fL Normal 82.6-98.9 [facility] Comment on above: Performed By: #### C MET, LIPASE, PT, PTT, EDCTNI ####Unless otherwise noted, all testing performed by [address] [phone]: [id number] Director: Armando Zamora M.D.#### CBCDIF ####Unless otherwise noted, all testing performed by [address] [phone]: [id number] Director: Armando Zamora M.D. Monocytes Auto #/vol (Bld) 0.5 K/mcL Normal 0.1-0.6 [facility] Comment on above: Performed By: #### C MET, LIPASE, PT, PTT, EDCTNI ####Unless otherwise noted, all testing performed by [address] [phone]: [id number] Director: Armando Zamora M.D.#### CBCDIF ####Unless otherwise noted, all testing performed by [place] [phone]: [id number] Director: Armando Zamora M.D. Monocytes/100 WBC Auto (Bld) 6.9 % Normal [facility] Comment on above: Performed By: #### C MET, LIPASE, PT, PTT, EDCTNI ####Unless otherwise noted, all testing performed by [address] [phone]: [id number] Director: Armando Zamora M.D.#### CBCDIF ####Unless otherwise noted, all testing performed by [address] [phone]: [id number] Director: Armando Zamora M.D. Neutrophils Auto #/vol (Bld) 5.8 K/mcL Normal 1.2-6.9 [facility] Comment on above: Performed By: #### C MET, LIPASE, PT, PTT, EDCTNI ####Unless otherwise noted, all testing performed by [address] [phone]: [id number] Director: Armando Zamora M.D.#### CBCDIF ####Unless otherwise noted, all testing performed by [address]8509CLIA: [id number] Director: Armando Zamora M.D. Platelet mean volume Auto Entitic volume (Bld) 8.8 fL Normal 7.0-10.6 [facility] Comment on above: Performed By: #### C MET, LIPASE, PT, PTT, EDCTNI ####Unless otherwise noted, all testing performed by [address] [phone]: [id number] Director: Armando Zamora M.D.#### CBCDIF ####Unless otherwise noted, all testing performed by [address]8509CLIA: [id number] Director: Armando Zamora M.D. Platelets Auto #/vol (Bld) 55 K/mcL Low 162-402 [facility] Comment on above: Result Comment: Smea r reviewed to evaluate platelet count and morphology. Performed By: #### C MET, LIPASE, PT, PTT, EDCTNI ####Unless otherwise noted, all testing performed by [address] [phone]: [id number] Director: Armando Zamora M.D.#### CBCDIF ####Unless otherwise noted, all testing performed by [address] [phone]: [id number] Director: Armando Zamora M.D. RBC Auto #/vol (Bld) 4.12 M/mcL Normal 3.7-5.0 [facility] Comment on above: Performed By: #### C MET, LIPASE, PT, PTT, EDCTNI ####Unless otherwise noted, all testing performed by [address] [phone]: [id number] Director: Armando Zamora M.D.#### CBCDIF ####Unless otherwise noted, all testing performed by [address] [phone]: [id number] Director: Armando Zamora M.D. RBC morphology finding Nom (Bld) Normal Normal Normal [facility] Comment on above: Performed By: #### C MET, LIPASE, PT, PTT, EDCTNI ####Unless otherwise noted, all testing performed by [address] [phone]: [id number] Director: Armando Zamora M.D.#### CBCDIF ####Unless otherwise noted, all testing performed by [address] [phone]: [id number] Director: Armando Zamora M.D. Segmented Neut % 87.2 % Normal [facility] Comment on above: Performed By: #### C MET, LIPASE, PT, PTT, EDCTNI ####Unless otherwise noted, all testing performed by [address] [phone]: [id number] Director: Armando Zamora M.D.#### CBCDIF ####Unless otherwise noted, all testing performed by [address] [phone]: [id number] Director: Armando Zamora M.D. WBC Auto #/vol (Bld) 6.7 K/mcL Normal 3.4-10.6 [facility] Comment on above: Performed By: #### C MET, LIPASE, PT, PTT, EDCTNI ####Unless otherwise noted, all testing performed by [address] [phone]: [id number] Director: Armando Zamora M.D.#### CBCDIF ####Unless otherwise noted, all testing performed by [address] [phone]: [id number] Director: Armando Zamora M.D. Comprehensive Metabolic Pane prudencio 06-28-2018 Albumin mass conc 3.2 g/dL Normal 3.2-5.2 [facility] Comment on above: Performed By: #### C MET, LIPASE, PT, PTT, EDCTNI ####Unless otherwise noted, all testing performed by [address] [phone]: [id number] Director: Armando Zamora M.D.#### CBCDIF ####Unless otherwise noted, all testing performed by [address] [phone]: [id number] Director: Armando Zamora M.D. ALP enzyme act/vol 120 U/L Normal 40-140 [facility] Comment on above: Performed By: #### C MET, LIPASE, PT, PTT, EDCTNI ####Unless otherwise noted, all testing performed by [address] [phone]: [id number] Director: Armando Zamora M.D.#### CBCDIF ####Unless otherwise noted, all testing performed by [address] [phone]: [id number] Director: Armando Zamora M.D. ALT enzyme act/vol 53 U/L Normal 14-65 [facility] Comment on above: Result Comment: This test result might be falsely depressed or falsely elevated onsamples drawn from patients taking Sulfasalazine and Sulfapyridine.Venipuncture should occur prior to taking either of these drugs. Performed By: #### C MET, LIPASE, PT, PTT, EDCTNI ####Unless otherwise noted, all testing performed by [address] [phone]: [id number] Director: Armando Zamora M.D.#### CBCDIF ####Unless otherwise noted, all testing performed by [address] [phone]: [id number] Director: Armando Zamora M.D. AST enzyme act/vol 100 U/L High 0-45 [facility] Comment on above: Result Comment: This test result might be falsely depressed or falsely elevated onsamples drawn from patients taking Sulfasalazine and Sulfapyridine.Venipuncture should occur prior to taking either of these drugs. Performed By: #### C MET, LIPASE, PT, PTT, EDCTNI ####Unless otherwise noted, all testing performed by [address] [phone]: [id number] Director: Armando Zamora M.D.#### CBCDIF ####Unless otherwise noted, all testing performed by [address] [phone]: [id number] Director: Armando Zamora M.D. Bilirubin mass conc 0.5 mg/dL Normal 0.3-1.2 [facility] Comment on above: Performed By: #### C MET, LIPASE, PT, PTT, EDCTNI ####Unless otherwise noted, all testing performed by [address] [phone]: [id number] Director: Armando Zamora M.D.#### CBCDIF ####Unless otherwise noted, all testing performed by [address] [phone]: [id number] Director: Armando Zamora M.D. Calcium mass conc 7.7 mg/dL Low 8.4-10.2 [facility] Comment on above: Performed By: #### C MET, LIPASE, PT, PTT, EDCTNI ####Unless otherwise noted, all testing performed by [address] [phone]: [id number] Director: Armando Zamora M.D.#### CBCDIF ####Unless otherwise noted, all testing performed by [address] [phone]: [id number] Director: Armando Zamora M.D. Chloride molar conc 97 mmol/L Low 98-108 [facility] Comment on above: Performed By: #### C MET, LIPASE, PT, PTT, EDCTNI ####Unless otherwise noted, all testing performed by [address] [phone]: [id number] Director: Armando Zamora M.D.#### CBCDIF ####Unless otherwise noted, all testing performed by [address] [phone]: [id number] Director: Armando Zamora M.D. CO2 molar conc 28 mmol/L Normal 21-32 [facility] Comment on above: Performed By: #### C MET, LIPASE, PT, PTT, EDCTNI ####Unless otherwise noted, all testing performed by [address] [phone]: [id number] Director: Armando Zamora M.D.#### CBCDIF ####Unless otherwise noted, all testing performed by [address] [phone]: [id number] Director: Armando Zamora M.D. Creatinine mass conc 1.00 mg/dL Normal 0.40-1.10 [facility] Comment on above: Performed By: #### C MET, LIPASE, PT, PTT, EDCTNI ####Unless otherwise noted, all testing performed by [address] [phone]: [id number] Director: Armando Zamora M.D.#### CBCDIF ####Unless otherwise noted, all testing performed by [address] [phone]: [id number] Director: Armando Zamora M.D. GFR/1.73 sq M predicted among blacks MDRD vol rate/area (S/P/Bld) mL/min/{1.73_m2} Normal [facility] Comment on above: Result Comment: Afri can Guyanese GFR Calc Performed By: #### C MET, LIPASE, PT, PTT, EDCTNI ####Unless otherwise noted, all testing performed by [address] [phone]: [id number] Director: Armando Zamora M.D.#### CBCDIF ####Unless otherwise noted, all testing performed by [address] [phone]: [id number] Director: Armando Zamora M.D. GFR/1.73 sq M predicted among non-blacks MDRD vol rate/area (S/P/Bld) mL/min/{1.73_m2} Normal [facility] Comment on above: Result Comment: Non- GFR CalceGFR is an estimated Glomerular Filtration Rate based on the valueof the patient's serum creatinine. In outpatients, eGFR should be usedas a helpful tool in screening for CKD. In inpatients or patients withacute renal failure, eGFR represents the GFR at the moment of the drawand should be used with caution. Performed By: #### C MET, LIPASE, PT, PTT, EDCTNI ####Unless otherwise noted, all testing performed by [facility] [address] [phone]: [id number] Director: Armando Zamora M.D.#### CBCDIF ####Unless otherwise noted, all testing performed by [address] [phone]: [id number] Director: Armando Zamora M.D. Glucose mass conc 129 mg/dL High 70-99 [facility] Comment on above: Result Comment: This test result might be falsely depressed or falsely elevated onsamples drawn from patients taking Sulfasalazine and Sulfapyridine.Venipuncture should occur prior to taking either of these drugs. Performed By: #### C MET, LIPASE, PT, PTT, EDCTNI ####Unless otherwise noted, all testing performed by [address] [phone]: [id number] Director: Armando Zamora M.D.#### CBCDIF ####Unless otherwise noted, all testing performed by [address] [phone]: [id number] Director: Armando Zamora M.D. Potassium molar conc 3.3 mmol/L Low 3.5-5.1 [facility] Comment on above: Performed By: #### C MET, LIPASE, PT, PTT, EDCTNI ####Unless otherwise noted, all testing performed by [address] [phone]: [id number] Director: Armando Zamora M.D.#### CBCDIF ####Unless otherwise noted, all testing performed by [address] [phone]: [id number] Director: Armando Zamora M.D. Protein mass conc 7.8 g/dL Normal 6.0-8.0 [facility] Comment on above: Performed By: #### C MET, LIPASE, PT, PTT, EDCTNI ####Unless otherwise noted, all testing performed by [address] [phone]: [id number] Director: Armando Zamora M.D.#### CBCDIF ####Unless otherwise noted, all testing performed by [address] [phone]: [id number] Director: Armando Zamora M.D. Sodium molar conc 136 mmol/L Normal 135-145 [facility] Comment on above: Performed By: #### C MET, LIPASE, PT, PTT, EDCTNI ####Unless otherwise noted, all testing performed by [address] [phone]: [id number] Director: Armando Zamora M.D.#### CBCDIF ####Unless otherwise noted, all testing performed by [address] [phone]: [id number] Director: Armando Zamora M.D. Urea nitrogen mass conc 2 mg/dL Low 8-25 [facility] Comment on above: Performed By: #### C MET, LIPASE, PT, PTT, EDCTNI ####Unless otherwise noted, all testing performed by [address] [phone]: [id number] Director: Armando Zamora M.D.#### CBCDIF ####Unless otherwise noted, all testing performed by [address] [phone]: [id number] Director: Armando Zamora M.D. Culture, Urineon 06-28-2018 Culture, Urine Test Name: Culture, UrineCulture Status: FinalMicro Source: UrineORGANISM ID: 1 - >100,000 CFU/ml ESCHERICHIA COLI AVOID fluoroquinolone treatment whenever possible. Risk of serious side effects may outweigh benefit.ANTIBIOTIC INTERPRETATION OPAL STATUSAmpicillin S <= 2 FAmp/Sulbactam S <= 2 FCefazolin S <= 4 FCefepime S <= 1 FCeftazidime S <= 1 FCeftriaxone S <= 1 FCiprofloxacin S <= 0.25 FGentamicin S <= 1 FNitrofurantoin S <= 16 FPiperacillin/Tazo S <= 4 FTobramycin S <= 1 FTrimeth/Sulfa S <= 20 F Normal [facility] Comment on above: Performed By: #### C MET, LIPASE, PT, PTT, EDCTNI ####Unless otherwise noted, all testing performed by [address] [phone]: [id number] Director: Armando Zamora M.D.#### CBCDIF ####Unless otherwise noted, all testing performed by [address] [phone]: [id number] Director: Armando Zamora M.D. Drugs of Abuse, Urineon Amphetamines,Ur None Detected Normal None Detected [facility] Comment on above: Performed By: #### D RUGSCRU ####Unless otherwise noted, all testing performed by [address] [phone]: [id number] Director: Armando Zamora M.D. Barbiturates,Ur None Detected Normal None Detected [facility] Comment on above: Performed By: #### D RUGSCRU ####Unless otherwise noted, all testing performed by [address] [phone]: [id number] Director: Armando Zamora M.D. Benzodiazepine,Ur None Detected Normal None Detected [facility] Comment on above: Performed By: #### D RUGSCRU ####Unless otherwise noted, all testing performed by [address] [phone]: [id number] Director: Armando Zamora M.D. Cannabinoids,Ur None Detected Normal None Detected [facility] Comment on above: Performed By: #### D RUGSCRU ####Unless otherwise noted, all testing performed by [address] [phone]: [id number] Director: Armando Zamora M.D. Cocaine,Ur None Detected Normal None Detected [facility] Comment on above: Performed By: #### D RUGSCRU ####Unless otherwise noted, all testing performed by [address] [phone]: [id number] Director: Armando Zamora M.D. DOA Cutoffs See comment. Normal [facility] Comment on above: Result Comment: Drug s of Abuse, Urine Presumptive Positive Cutoff Concentrations.Amphetamine/Methamphetamine: 1000 ng/mlBarbiturates: 200 ng/mlBenzodiazepines and metabolities: 200 ng/mlCannabinoids: 50 ng/mlCocaine/Benzoylecgonine: 300 ng/mlMethadone:300 ng/mlOpiates: 300 ng/mlOxycodone/Oxymorphone: 100 ng/ml Performed By: #### D SIMI ####Unless otherwise noted, all testing performed by [address] [phone]: [id number] Director: Armando Zamora M.D. Methadone,Ur None Detected Normal None Detected [facility] Comment on above: Performed By: #### D SIMI ####Unless otherwise noted, all testing performed by [address] [phone]: [id number] Director: Armando Zamora M.D. Opiates,Ur None Detected Normal None Detected [facility] Comment on above: Performed By: #### D SIMI ####Unless otherwise noted, all testing performed by [address] [phone]: [id number] Director: Armando Zamora M.D. Oxycodone, Urine None Detected Normal None Detected [facility] Comment on above: Result Comment: THES E DRUGS OF ABUSE TESTS ARE PROVIDED A MEDICAL SCREENING ONLY.POSITIVE RESULTS ARENOT CONFIRMED BY GCMS Performed By: #### D SIMI ####Unless otherwise noted, all testing performed by [address] [phone]: [id number] Director: Armando Zamora M.D. ED Cardiac Troponin-Ion 09-0 Troponin I.cardiac mass conc ng/mL Normal < 45 [facility] Comment on above: Result Comment: Elev ation of troponin indicates some degree of myocardial necrosis butunless there is a significant rise and/or fall (if elevated) identified,it unlikely that an acute event has taken placeSamples from patients routinely receiving high dose biotin therapy(100-300 mg/day) may show falsely decreased results. Please correlateclinically. Performed By: #### C MET, LIPASE, PT, PTT, EDCTNI ####Unless otherwise noted, all testing performed by [address] [phone]: [id number] Director: Armando Zamora M.D.#### CBCDIF ####Unless otherwise noted, all testing performed by [address] [phone]: [id number] Director: Armando Zamora M.D. Lipaseon 06-28-2018 Lipase enzyme act/vol 128 U/L Normal 73-393 [facility] Comment on above: Performed By: #### C MET, LIPASE, PT, PTT, EDCTNI ####Unless otherwise noted, all testing performed by [address] [phone]: [id number] Director: Armando Zamora M.D.#### CBCDIF ####Unless otherwise noted, all testing performed by [address] [phone]: [id number] Director: Armando Zamora M.D. Partial Thromboplastin Timeo n 06-28-2018 aPTT Coag time (Bld) 28 s Normal 23-34 [facility] Comment on above: Result Comment: Laurie pelayo therapeutic range for PTT is 68-104 sec. Performed By: #### C MET, LIPASE, PT, PTT, EDCTNI ####Unless otherwise noted, all testing performed by [address], [place] [phone]: [id number] Director: Armando Zamora M.D.#### CBCDIF ####Unless otherwise noted, all testing performed by [facility], [place] [phone]: [id number] Director: Armando Zamora M.D. Test,Urine Qualon 06-28-2018 HCG.beta subunit ( test) Ql (U) Negative Normal Negative [facility] Comment on above: Result Comment: Rapi d test procedural control acceptable.If a negative result is obtained but is suspected, hCG levelsmay be too low or urine may be too dilute for detection. Another specimenshould be collected after 48-72 hours and tested. If waiting 48 hours isnot medically advisable, the test result should be confirmed with a moresensitive quantitative serum hCG test. Performed By: #### P JOSE, [facility] ####Unless otherwise noted, all testing performed by [address] [phone]: [id number] Director: Armando Zamora M.D. Protimeon 06-28-2018 INR Coag RelTime (PPP) 1.07 {INR} Normal [facility] Comment on above: Result Comment: The [employer] recommended therapeutic rangefor Warfarin (Coumadin) therapy goals:PROPHYLAXIS/TREATMENT of:INRVenous Thrombosis, Pulmonary Embolism2.0-3.0Prevention of VTE (Orthopedic Surgery)2.0-3.0Atrial Fibrillation2.0-3.0Myocardial Infarction2.0-3.0Mechanical Prosthetic Heart Valves (Aortic position)2.0-3.0Mechanical Prosthetic Heart Valves (Mitral Position)2.5-3.5American College of Chest Physicians evidence-based clinical practiceguidelines. CHEST. 2012 (9th ed) Performed By: #### C MET, LIPASE, PT, PTT, EDCTNI ####Unless otherwise noted, all testing performed by [address] [phone]: [id number] Director: rAmando Zamora M.D.#### CBCDIF ####Unless otherwise noted, all testing performed by [address] [phone]: [id number] Director: Armando Zamora M.D. Prothrombin time (PT) Coag time (PPP) 13.6 s Normal 11.8-14.3 [facility] Comment on above: Performed By: #### C MET, LIPASE, PT, PTT, EDCTNI ####Unless otherwise noted, all testing performed by [address] [phone]: [id number] Director: Armando Zamora M.D.#### CBCDIF ####Unless otherwise noted, all testing performed by [address] [phone]: [id number] Director: Armando Zamora M.D. T4, Freeon 06-28-2018 T4 free mass conc 0.9 ng/dL Normal 0.7-1.7 [facility] Comment on above: Result Comment: Samp les from patients routinely receiving high dose biotin therapy(100-300 mg/day) may show falsely increased results. Please correlateclinically. Performed By: #### C MET, LIPASE, PT, PTT, EDCTNI ####Unless otherwise noted, all testing performed by [address] [phone]: [id number] Director: Armando Zamora M.D.#### CBCDIF ####Unless otherwise noted, all testing performed by [address] [phone]: [id number] Director: Armando Zamora M.D. TSHon 06-28-2018 Thyrotropin Qn 1.80 uIU/mL Normal 0.32-5.00 [facility] [place] [facility] Comment on above: Result Comment: Samp les from patients routinely receiving high dose biotin therapy(100-300 mg/day) may show falsely decreased results. Please correlateclinically. Performed By: #### C MET, LIPASE, PT, PTT, EDCTNI ####Unless otherwise noted, all testing performed by [address] [phone]: [id number] Director: Armando Zamora M.D.#### CBCDIF ####Unless otherwise noted, all testing performed by [address] [phone]: [id number] Director: Armando Zamora M.D. Urine with Indicated Culture on 06-28-2018 Bacteria LM.HPF #/area (Urine sed) Many Abnormal NS;RARE [facility] Comment on above: Performed By: #### P REGUR, UIC ####Unless otherwise noted, all testing performed by [address] [phone]: [id number] Director: Armando Zamora M.D. Bilirubin,Urine Negative Normal NEG;NEGATIVE [facility] Comment on above: Performed By: #### P REGUR, UIC ####Unless otherwise noted, all testing performed by [address] [phone]: [id number] Director: Armando Zamora M.D. Blood,Urine Small Abnormal NEG;NEGATIVE [facility] Comment on above: Performed By: #### P REGUR, UIC ####Unless otherwise noted, all testing performed by [address] [phone]: [id number] Director: Armando Zamora M.D. Character Cloudy Normal [facility] Comment on above: Performed By: #### P REGUR, UIC ####Unless otherwise noted, all testing performed by [address] [phone]: [id number] Director: Armando Zamora M.D. Color Nom (U) Yellow Normal [facility] Comment on above: Performed By: #### P REGUR, UIC ####Unless otherwise noted, all testing performed by [address] [phone]: [id number] Director: Armando Zamora M.D. Glucose Ql (U) Negative Normal NEG;NEGATIVE [facility] Comment on above: Performed By: #### P REGUR, UIC ####Unless otherwise noted, all testing performed by [address] [phone]: [id number] Director: Armando Zamora M.D. Ketone,Urine Negative Normal NEGATIVE;NEG [facility] Comment on above: Performed By: #### P REGUR, UIC ####Unless otherwise noted, all testing performed by [address] [phone]: [id number] Director: Armando Zamora M.D. Leuk.Esterase,Urin e Large Abnormal Negative [facility] Comment on above: Performed By: #### P REGUR, UIC ####Unless otherwise noted, all testing performed by [address] [phone]: [id number] Director: Armando Zamora M.D. Mucus, Urine Moderate Abnormal None Seen [facility] Comment on above: Performed By: #### P REGUR, UIC ####Unless otherwise noted, all testing performed by [address] [phone]: [id number] Director: Armando Zamora M.D. Nitrite,Urine Positive Abnormal NEG;NEGATIVE [facility] [place] [facility] Comment on above: Performed By: #### P REGUR, UIC ####Unless otherwise noted, all testing performed by [address] [phone]: [id number] Director: Armando Zamora M.D. pH Test strip (U) 7.0 [pH] Normal 4.5-8.0 [facility] Comment on above: Performed By: #### P REGUR, UIC ####Unless otherwise noted, all testing performed by [address] [phone]: [id number] Director: Armando Zamora M.D. Protein,Urine 100 mg/dL Normal [facility] Comment on above: Performed By: #### P REGUR, UIC ####Unless otherwise noted, all testing performed by [address] [phone]: [id number] Director: Armando Zamora M.D. RBC LM.HPF #/area (Urine sed) 5-10 Abnormal 0-3+;NS [facility] Comment on above: Performed By: #### P REGUR, UIC ####Unless otherwise noted, all testing performed by [address] [phone]: [id number] Director: Armando Zamora M.D. Specific [place],Urine 1.025 Normal 1.003-1.029 [facility] Comment on above: Performed By: #### P REGUR, UIC ####Unless otherwise noted, all testing performed by [address] [phone]: [id number] Director: Armando Zamora M.D. Squamous Epithelial 0-3 Normal 0-3+;NS [facility] Comment on above: Performed By: #### P REGUR, UIC ####Unless otherwise noted, all testing performed by [address] [phone]: [id number] Director: Armando Zamora M.D. Urobilinogen,Urine 0.2 EU/dL Normal 0.2 [facility] Comment on above: Performed By: #### P REGUR, UIC ####Unless otherwise noted, all testing performed by [address] [phone]: [id number] Director: Armando Zamora M.D. WBC LM.HPF #/area (Urine sed) Too Numerous to Count Abnormal 0-3+;3-5+;NS [facility] Comment on above: Performed By: #### P REGUR, UIC ####Unless otherwise noted, all testing performed by [address] [place] [phone]: [id number] Director: Armando Zamora M.D. ED NOTEon 06-25-2018 [facility] ED PROVIDERon 06-25-2018 [facility] ED NOTEon 06-17-2018 [facility] ED NOTEon 06-16-2018 [facility] ED PROVIDERon 06-16-2018 [facility] Encounters Encounter Date Encounter Type Care Provider Facility Start: 06-05-2023 End: 06-05-2023 ambulatory [facility] Start: 12-09-2022 End: 12-10-2022 ambulatory [facility] Start: 10-13-2022 End: 10-13-2022 Emergency department patient visit ANASTACIA FISHMAN [facility] Start: 04-10-2022 End: 04-11-2022 Emergency department patient visit [facility] Start: 06-07-2021 End: 06-11-2021 [facility] Start: 05-18-2021 End: 05-22-2021 ambulatory [facility] Start: 04-20-2021 End: 04-24-2021 ambulatory [facility] Start: 03-16-2021 End: 03-20-2021 ambulatory [facility] [place] Start: 11-02-2020 End: 11-06-2020 ambulatory [facility] Start: 06-28-2018 End: 06-29-2018 Patient encounter Crescencio Reed Facility:[facility] Start: 06-25-2018 End: 06-25-2018 Emergency department patient visit THALIA HAMM [facility] Start: 06-16-2018 End: 06-17-2018 Emergency department patient visit HYACINTH ZIMMERMAN [facility] Start: 09-05-2017 End: 09-05-2017 Ambulatory Justin Vinson Facility:[facility] Start: 08-05-2017 End: 08-06-2017 Ambulatory [facility] Facility:[facility] Payers Date Payer Category Payer Unknown [id number] 2020 Medicaid [id number] 2020 Medicaid [id number] 2017 Unknown 1985 Unknown [id number] 2.16. [id number] 1986 Unknown [id number] 2.16. [id number] 1986 Unknown [id number] 2.16. [id number] 1986 Unknown [id number] 2.16. [id number] 1986 Unknown [id number] 2.16. [id number] 1986 Unknown [id number] 2.16. [id number] 1986 Unknown [id number] 2.16. [id number] 1986 Unknown [id number] 2.16. [id number] 1986 Unknown [id number] 2.16. [id number] 1986 Unknown [id number] 2.16. [id number] Self-pay [id number] Discharge summary note 03-15-2021 Note Date & Type Note Facility 03-15-2021 Note [facility] Medical Records Department [address] [place] [address] Discharge Summary 03/15/21 0934 MR#: [id number] Acct: [id number] Name: JUDITH BLOCK ZOHAIB Rep #: [id number] : 1985 35 From: Camacho Verma MD PCP: CASSIA ARAUJO Status:ADM IN Location: [facility] [id number] Providers Date of Admission: 03/12/21 Primary Care Physician: CASSIA ARAUJO Reason For Visit: ETOH WITHDRAWAL Diagnosis Discharge Diagnosis (1) Alcohol intoxication: Status: Acute Code(s): F10.929 - Alcohol use, unspecified with intoxication, unspecified Qualifiers: Complication of substance-induced condition: uncomplicated Qualified Code(s): F10.920 - Al cohol use, unspecified with intoxication, uncomplicated (2) Alcohol dependence: Status: Acute Code(s): F10.20 - Alcohol dependence, uncomplicated Qualifiers: Complication of substance-induced condition: uncomplicated Substance use status: with intoxication Qualified Code(s): F10.220 - Alcohol dependence with intoxication, uncomplicated (3) Depression: Status: Acute Code(s): F32.9 - Major depressive disorder, single episode, unspecified Qualifiers: Depression Type: unspecified Qualified Code(s): F32.9 - Major depressive disorder, single episode, unspecified (4) Tobacco abuse: Status: Acute Code(s): Z72.0 - Tobacco use Medications at Discharge Home Medications sertraline 100 mg PO DAILY 10/27/20 folic acid 1 mg PO BREAKFAST #30 tab 03/15/21 nicotine 21 mg TRANSDERMAL DAILY #30 ea 03/15/21 thiamine HCl (vitamin B1) [Vitamin B-1] 100 mg PO BREAKFAST #30 tab 03/15/21 Hospital Course Summary of Care Provided Hospital Course: ???This 35-year-old female admitted with acute alcohol intoxication with serum alcohol level 355.??? Patient relapsed about 4 weeks ago after being sober for 1.5 years. 1.??? Acute alcohol withdrawal syndrome with chronic use, dependence and relapse: On the phenobarbital based other medications for stabilization of alcohol withdrawal symptoms.On the phenobarbital based other medications for stabilization of alcohol withdrawal symptoms.??? [employer] consulted for alcohol relapse and rehab. Patient is started on phenobarbital did not had major withdrawal symptoms like seizure, tachycardia. Patient has follow-up as an outpatient and scheduled to have Vivitrol. 2.??? Chronic smoker: On nicotine transdermal patch. Prescription given for nicotine, thiamine and folic acid. 3.??? Anxiety and depression: Controlled.??? No suicidal ideation, attempt. VT prophylaxis, low risk early medicine coverage. Discharge medication reconciliation done. Discharge follow-up instructions completed. Discharge process discussed with the patient and all questions were answered to patient's satisfaction. Nursing letter was given for patient's admission as requirement for her workplace. Total time spent, exact 35 minutes on discharge meds reconciliation, examination, coordination of care with nurses and ancillary staff, review of imaging and blood test and discussion with the patient on follow-up instructions Physical Exam Narrative No clinical signs of withdrawal. Patient feels ready to go home. Physical exam General: Alert, Oriented x3, Cooperative HEENT: Atraumatic, PERRLA, EOMI, Normocephalic Oral: No Gingival or Mucosal Lesions/ Ulcerations Neck: Supple, No JVD, Negative Carotid Bruits Lungs: Air entry equal in bilateral lung bases. No crepitation/rhonchi Cardiovascular: Regular rate, Regular Rhythm, Normal S1, Normal S2, No murmurs Abdomen: Bowel Sounds Present, Soft, Non Tender, Non-Distended : No renal angle tenderness. No suprapubic tenderness. Extremities: No edema, Capillary Refill Less than 3 Seconds Skin: No rashes, No breakdown Musculoskeletal: No Tenderness to Palpation of Joints or Extremities Neurological: Cranial nerves II-XII grossly intact, Deep Tendon Reflexes 2+/4 and Symmetrical, Neuro grossly intact. No tremors Psych/Mental Status: Normal Affect, Appropriate. ABG / Lab / Microbiology Data Result Diagrams: 03/12/21 20:34 03/12/21 20:34 D/C Instructions Discharge Diet: No restrictions Discharge Activity: Return to Normal Activity and May Not Drive (For 24 hours.) Weight Bearing Status: Weight bearing as tolerated Call your doctor if you observe: Fever of 101 or Higher, Coldness, Increased Pain, Numbness or Tingling, Change in Color, Inability to urinate, Inability to have a bowel movement, Using more than one pad per hour, Shortness of breath, Dizziness, Fainting spells, Swelling in the ankles, Chest pain, Prolonged hiccupping, Increased palpitations (irregular heartbeat) and Calf discomfort Meaningful Use Info Meaningful Use Diagnoses (Choose all that apply): None applicable Discharge Plan Admission Admit Date/Time: 03/12/21 22:30 Primary Reason for Your Visit: Acute alcohol w (more content not included)... [facility] Clinical Note 03-13-2021 Note Date & Type Note Facility 03-13-2021 Note [facility] Medical Records Department [address] [place] [address] History Physical Exam 03/12/212230 MR#: [id number] Acct: [id number] Name: JUDITH BLOCK Rep #: [id number] : 1985 35 From: Damaris RIOJASC PCP: CASSIA ARAUJO Status:ADM IN Location: [facility] [id number] HPI - General General Date of Admission: 03/12/21 HPI Narrative JUDITH BLOCK, is a 35 F who presents tonight for detoxification from alcohol. Patient states that she was sober for approximately 1-1/2 years before relapsing 4 weeks ago following a rough break-up. Patient alcohol level in ER was 355. Patient states that her daily alcohol intake varies but is usually around 3-5 8% beers. Patient denies any medical history. [facility] Medical History (Updated 03/12/21 @ 22:36 by Damaris Pedraza NP-C) Depression Home Medications sertraline 100 mg PO DAILY 10/27/20 [History Last Taken Unknown] Allergy/AdvReac Type Severity Reaction Status Date / Time No Known Allergies Allergy Verified 03/12/21 19:56 Social History Smoking Status: Current some day smoker ROS Constitutional Constitutional: Denies anorexia, chills or fatigue Cardiovascular Cardiovascular: Denies chest pain, edema or palpitations Respiratory/Chest Respiratory/Chest: Denies cough, shortness of breath at rest or shortness of breath with exertion Gastrointestinal Gastrointestinal: Denies abdominal pain, constipation or diarrhea Genitourinary Genitourinary: Denies dysuria or hematuria Musculoskeletal Musculoskeletal: Denies back pain, extremity pain or joint pain Integumentary Integumentary: Denies dry skin or jaundice Neurologic Neurologic: Denies abnormal gait, abnormal speech, confusion or dizziness Psychiatric Psychiatric: Reports anxiety and depression Endocrine Endocrinology: Denies change in body appearance Hematologic/Lymphatic Hematologic/Lymphatic: Denies easy bleeding or easy bruising Vital Signs Vital Signs Vital Signs: 03/12/21 19:54 03/12/21 20:21 Temperature 97.8 F 97.8 F Temperature Source Temporal Oral Pulse Rate 91 91 Respiratory Rate 16 16 Blood Pressure 128/84 H 128/84 H Blood Pressure Mean 98 98 Blood Pressure Source Monitor Blood Pressure Position Sitting Blood Pressure Location Right Arm Pulse Ox 96 96 Oxygen Delivery Method Room Air Room Air Physical Exam Const alert and oriented x3 General Appearance: cooperative HEENT normocephalic and head/scalp atraumatic Neck no lymphadenopathy, supple, no JVD and thyroid normal General: trachea midline Resp normal respiratory effort, normal air movement and clear to auscultation bilaterally Cardio regular rate, regular rhythm, S1 normal heart sound, S2 normal heart sound and peripheral pulses 2+ throughout GI normal to inspection, nondistended, normoactive bowel sounds and soft to palpation Extremity normal capillary refill and no clubbing, cyanosis or edema General Extremity: no tenderness to palpation of joints or extremities Skin General Skin Exam: no breakdown and turgor normal Lesions: no lesions Rashes: no rashes Neuro CN's II-XII intact bilaterally Psych affect normal Appearance: appropriate Lab / Micro Data Result Diagrams: 03/12/21 20:34 03/12/21 20:34 Labs: Laboratory Results - last 24 hr 03/12/21 03/12/21 03/12/21 20:34 20:34 20:34 WBC 7.7 RBC 4.65 Hgb 14.5 Hct 42.2 MCV 90.8 MCH 31.2 MCHC 34.4 RDW Std Deviation 47.9 H RDW Coeff of Tony 14.4 Plt Count 316 MPV 9.1 Immature Gran % (Auto) 0.100 Neut % (Auto) 50.6 Lymph % (Auto) 39.2 [place] % (Auto) 9.2 Eos % (Auto) 0.4 Baso % (Auto) 0.5 Absolute Neuts (auto) 3.9 Absolute Lymphs (auto) 3.01 Nucleated RBC % 0 Sodium 140 Potassium 3.6 Chloride 104 Carbon Dioxide 29.0 Anion Gap 7 BUN 8 Creatinine 0.85 Estim Creat Clear Calc 77.14 Est GFR (MDRD) Af Amer 99 Est GFR (MDRD) Non-Af 82 BUN/Creatinine Ratio 9.5 L Glucose 113 H Calcium 8.2 L Total Bilirubin 0.50 AST 52 H ALT 47 Alkaline Phosphatase 91 Total Protein 8.2 Albumin 3.6 Globulin 4.6 H Albumin/Globulin Ratio 0.8 L Serum , Qual Urine Opiates Screen Urine Methadone Screen Ur Barbiturates Screen Ur Phencyclidine Scrn Ur Amphetamines Screen U Methamphetamin-MDMA U Benzodiazepines Scrn Urine Cocaine Screen U Cannabinoids Screen Ur Drug Screen Comment Ethyl Alcohol 355.0 H* 03/12/21 03/12/21 20:34 21:30 WBC RBC Hgb Hct MCV MCH MCHC RDW Std Deviation RDW Coeff of Tony Plt Count MPV Immature Gran % (Auto) Neut % (Auto) Lymph % (Auto) Oxford % (Aut (more content not included)... [facility] Summary Purpose Family History No Family History Records FoundNo Family History Records FoundNo Family History Records FoundNo Family History Records FoundNo Family History Records FoundNo Family History Records FoundNo Family History Records FoundNo Family History Records FoundNo Family History Records Found Advance Directives No Advanced Directives Records FoundNo Advanced Directives Records FoundNo Advanced Directives Records FoundNo Advanced Directives Records FoundNo Advanced Directives Records FoundNo Advanced Directives Records FoundNo Advanced Directives Records FoundNo Advanced Directives Records FoundNo Advanced Directives Records Found Additional Source Comments INFORMATION SOURCE (unrecogn ized section and content) DATE CREATED AUTHOR 04/21/2018 [facility] DATE CREATED AUTHOR AUTHOR'S ORGANIZ ATION 06/28/2018 [facility] DATE CREATED AUTHOR AUTHOR'S ORGANIZ ATION 08/28/2018 [facility] DATE CREATED AUTHOR AUTHOR'S ORGANIZ ATION 07/19/2019 [facility] DATE CREATED AUTHOR AUTHOR'S ORGANIZ ATION 06/11/2021 [facility] DATE CREATED AUTHOR AUTHOR'S ORGANIZ ATION 12/09/2021 [facility] DATE CREATED AUTHOR AUTHOR'S ORGANIZ ATION 12/28/2022 [facility] DATE CREATED AUTHOR AUTHOR'S ORGANIZ ATION 12/28/2022 [facility] DATE CREATED AUTHOR AUTHOR'S ORGANIZ ATION 06/06/2023 [facility] Care FOR RECORDS PERTAINING TO PATIENTS WHO ARE OR HAVE BEEN ENROLLED IN A CHEMICAL DEPENDENCY/SUBSTANCEABUSE PROGRAM, SOME INFORMATION MAY BE OMITTED. This clinical summary was aggregated from multiple sources. Caution should be exercised in using it in the provision of clinical care. This summary normalizes information from multiple sources, and as a consequence, information in this document may materially change the coding, format and clinical context of patient data. In addition, data may be omitted in some cases. CLINICAL DECISIONS SHOULD BE BASED ON THE PRIMARY CLINICAL RECORDS. [facility] [employer] [facility]. provides no warranty or guarantee of the accuracy or completeness of information in this document.
[2025-04-16 18:32] LABS: Absolute Lymphocyte Count 1.96 X10^3/uL (0.83-4.51); Absolute Neutrophil Count 5.1 X10^3/uL (2.0-7.7); Basophil# 0.03 X10^3/uL; Basophil% 0.4 % (0-1); Eosinophil# 0.01 X10^3/uL; Eosinophils% 0.1 % (0-5); Hematocrit 41.6 % (37-47); Lymphocyte # 1.96 X10^3/ul (0.83-4.51); Lymphocyte % 25.5 % (19-41); Mean Corp Hgb Conc 36.1 g/dL (32-36); Mean Corpuscular Volume 94.3 fL (81-99); Monocyte# 0.53 X10^3/uL; Monocyte% 6.9 % (0-10); NRBC Flagged by Analyzer 0 % (0-5); Neutrophil # 5.14 X10^3/uL (2.7-7.7); Platelet Count 274 K/mm3 (150-450); RBC Distribution Width CV 12.6 % (11.6-14.6); RBC Distribution Width SD 44.3 fl (35.1-43.9); Red Blood Count 4.41 M/mm3 (4.2-5.4); White Blood Count 7.7 K/mm3 (4.4-11.0)
[2025-04-16 18:43] LABS: Prothrombin Time (Protime)PT. 13.2 SECONDS (11.7-14.9)
[2025-04-16 18:49] LABS: AST(SGOT) 69 U/L (<=31); Alanine Aminotransfer ALT/SGPT 26 U/L (<=34); Albumin, Serum 4.2 g/dL (3.5-5.0); Alkaline Phosphatase 100 U/L (35-104); Anion Gap 19 (5-15); BUN 6 mg/dL (4-19); BUN/Creat Ratio 5.8 RATIO (10-20); Calcium,Total 8.5 mg/dL (7.6-11.0); Carbon Dioxide 22.9 mmol/L (21.0-32.0); Chloride 95 mmol/L (98-108); Creatinine, Serum 0.98 mg/dL (0.70-1.20); EST Glomerular Filtration Rate 76 (>60); Estimated Creatinine Clearance 73.19 ml/min (50-250); Globulin 4.2 g/dL (2.2-4.2); Glucose 180 mg/dL (70-99); Potassium 3.5 mmol/L (3.3-5.1); Protein, Total 8.4 g/dL (5.9-8.4); Sodium Level 137 mmol/L (133-145); Total Bilirubin 0.44 mg/dL (0.00-1.30)
[2025-04-16 19:03] LABS: Amphetamine Urine NEGATIVE (<1000 ng/mL); Barbiturate Urine NEGATIVE (< 200 ng/mL); Benzodiazepine Urine NEGATIVE (< 200 ng/mL); Buprenorphine Urine NEGATIVE (< 200 ng/mL); Cocaine Urine NEGATIVE (< 300 ng/mL); Fentanyl, Urine NEGATIVE; Methadone Urine NEGATIVE (< 300 ng/mL); Opiates Urine NEGATIVE (< 300 ng/mL); Oxycodone, Urine NEGATIVE (< 100 ng/mL); PCP Urine NEGATIVE (< 25 ng/mL); THC Urine NEGATIVE (< 50 ng/mL)
[2025-04-16 19:24] LABS: Internal QC Validated? YES +Cl - CLEAR BKGD; Pregnancy, Serum, hCG Quali. NEGATIVE Negative; Record Kit Lot#, Serum Preg. 947241
--- NOTE | 2025-04-16 19:36 | PCM.HP.STD ---
[facility] - [facility] General Date of Service: 04/16/25 Chief Complaint: Requesting EtOH Detox. [facility] Narrative JUDITH BLOCK, is a 39 F with a past medical history of being overweight; BMI of 27.5 this admission, depression with anxiety; on trazodone and escitalopram, tobacco abuse, history of admission here from March 12, 2021 to March 15, 2021 for treatment of acute alcohol intoxication in the setting of chronic alcohol abuse complicated by depression and tobacco abuse who presents to [facility] ER complaining of recent relapse into EtOH abuse after an alleged period of sobriety lasting ~3 years. She recently began drinking some white claws and then over the past few weeks she has been drinking 2/5 of vodka daily. She states she has previously experienced alcohol withdrawal seizures and was worried about trying to do alcohol detoxification at home so she decided to come in for further evaluation and treatment. She denies any pending legal issues at this time or drinking while at her job but she does admit to calling off work to drink. She states she is compliant with her Lexapro and trazodone and she denies associated SI or HI. She states her last drink was ~6 hours ago. There was no report of associated fever, chills, changes in vision, hallucinations, runny nose, sore throat, ear pain, chest pain, palpitations, heart racing, lower extremity edema, shortness of breath, cough, abdominal pain, nausea, vomiting, diarrhea, constipation, dysuria, hematuria, headache or rash. In the ER she was noted to have a MARY ELLEN of 285 mg/dL consistent with Acute EtOH Intoxication in the setting of Chronic EtOH Abuse and she was then admitted to the general medical floor for ongoing care for stay that is expected to extend beyond 2 midnights. [facility] Medical History Alcohol abuse Depression Home Medications ?Medication ?Instructions ?Recorded ?Last Taken ?Type escitalopram oxalate 10 mg tablet 10 mg PO DAILY 04/16/25 Unknown History (Lexapro) trazodone 50 mg tablet 75 mg PO QHS 04/16/25 Unknown History Allergy/AdvReac Type Severity Reaction Status Date / Time No Known Allergies Allergy Verified 04/16/25 17:43 Social History Smoking Status: Current some day smoker tobacco type: cigarettes and e-cigarettes ROS ROS Narrative Review of Systems: Constitutional: Patient denies fever or chills. Eyes: Patient denies change in vision or discharge from eyes. ENT: Patient denies runny nose, sore throat or ear pain. Resp: Patient denies shortness of breath or cough. CV: Patient denies chest pain, palpitations, heart racing or lower extremity edema. GI: Patient denies abdominal pain, nausea, vomiting, diarrhea or constipation. : Patient denies dysuria, hematuria urinary frequency. MSK: Patient denies arthralgias or myalgias. Skin: Patient denies rash, abscess, wounds or jaundice. Psych: Patient admits to depression but she denies anxiety SI or HI as per HPI. Neuro: Patient denies headache, paresthesias or focal neurologic deficits. Allergy: Patient denies lip swelling, tongue swelling or urticaria. Hematology: Patient denies easy bleeding or easy bruisability. Endocrinology: Patient denies polyuria, polydipsia, polyphagia or heat/cold intolerance. 14 point ROS otherwise negative save for positives noted above in HPI. Vital Signs Vital Signs Vital Signs: 04/16/25 17:43 04/16/25 18:35 04/16/25 18:43 Temperature 97.9 F 98.4 F Temperature Source Oral Oral Pulse Rate 116 H 66 103 H Respiratory Rate 16 12 16 Blood Pressure 164/109 H 125/81 H 130/90 H Blood Pressure Mean 127 95 103 Blood Pressure Source Monitor Blood Pressure Position Semi-Fowlers Blood Pressure Location Left Arm Pulse Ox 97 100 100 Oxygen Delivery Method Room Air Room Air Room Air Weight Weight: 155 lb Body Mass Index (BMI) 27.4 Physical Exam Const alert, oriented x3, no apparent distress, average body habitus and healthy appearing General Appearance: cooperative HEENT normocephalic, head/scalp atraumatic, hearing grossly normal bilaterally and moist oral mucous membranes Eyes PERRL, EOMs intact bilaterally and conjunctivae normal Neck no lymphadenopathy, supple and no JVD Resp normal respiratory effort, no retractions, no use of accessory muscles and clear to auscultation bilaterally Cardio regular rate and regular rhythm GI normal to inspection, nondistended, normoactive bowel sounds, soft to palpation, non-tender and non-distended Extremity normal to inspection, full ROM and no clubbing, cyanosis or edema Skin Skin Narrative: Patient has no evidence of rash, abscess, wounds or jaundice. Neuro oriented x3, CN's II-XII intact bilaterally, moves all extremities and no focal motor deficits Sensorium / Orientation: awake, alert, oriented to person, oriented to place and oriented to time Speech: speech normal Psych affect normal Results Medical Records Data Attestation: I reviewed the patient's medical records Lab / Micro Data Attestation: I reviewed the patient's lab results. 04/16/25 17:55 04/16/25 17:55 Labs: Laboratory Results - last 24 hr 04/16/25 17:55: WBC 7.7, RBC 4.41, Hgb 15.0, Hct 41.6, MCV 94.3, MCH 34.0 H, MCHC 36.1 H, RDW Std Deviation 44.3 H, RDW Coeff of Tony 12.6, Plt Count 274, MPV 9.0, Immature Gran % (Auto) 0.100, Neut % (Auto) 67.0, Lymph % (Auto) 25.5, Lander % (Auto) 6.9, Eos % (Auto) 0.1, Baso % (Auto) 0.4, Absolute Neuts (auto) 5.1, Absolute Lymphs (auto) 1.96, Nucleated RBC % 0, PT 13.2, INR 1.0, Sodium 137, Potassium 3.5, Chloride 95 L, Carbon Dioxide 22.9, Anion Gap 19 H, BUN 6, Creatinine 0.98, Estim Creat Clear Calc 73.19, Est GFR (MDRD) Non-Af 76, BUN/Creatinine Ratio 5.8 L, Glucose 180 H, Calcium 8.5, Total Bilirubin 0.44, AST 69 H, ALT 26, Alkaline Phosphatase 100, Total Protein 8.4, Albumin 4.2, Globulin 4.2, Albumin/Globulin Ratio 1.0, Serum , Qual NEGATIVE, Ethyl Alcohol 285.0 H 04/16/25 18:27: Urine Opiates Screen NEGATIVE, U Buprenorphine Qual NEGATIVE, Ur Oxycodone Screen NEGATIVE, Urine Methadone Screen NEGATIVE, Urine Fentanyl Screen NEGATIVE, Ur Barbiturates Screen NEGATIVE, Ur Phencyclidine Scrn NEGATIVE, Ur Amphetamines Screen NEGATIVE, U Benzodiazepines Scrn NEGATIVE, Urine Cocaine Screen NEGATIVE, U Cannabinoids Screen NEGATIVE Assessment & Plan Assessment/Plan (1) Alcohol intoxication: QUALIFIERS: Complication of substance-induced condition: uncomplicated Qualified Code(s): F10.920 - Alcohol use, unspecified with intoxication, uncomplicated (2) Alcohol dependence: QUALIFIERS: Substance use status: with intoxication Complication of substance-induced condition: uncomplicated Qualified Code(s): F10.220 - Alcohol dependence with intoxication, uncomplicated (3) Depression: QUALIFIERS: Depression Type: unspecified Qualified Code(s): F32.9 - Major depressive disorder, single episode, unspecified (4) Anxiety: (5) Tobacco abuse: (6) Overweight (BMI 25.0-29.9): PLAN: Plan 1. MARY ELLEN of 285 mg/dL consistent with Acute EtOH Intoxication in the setting of Chronic EtOH Abuse - Admit to general medical floor for treatment under the EtOH detoxification protocol primarily consisting of phenobarbital taper. EtOH Cessation will be strongly encouraged. Give ibuprofen prn for pain or fever. Give promethazine prn for nausea and vomiting. Finally, we will consult Case Management to help this patient connect with the services that can hopefully help her to achieve and maintain lasting sobriety with help appreciated in advance. 2. Depression with anxiety; on trazodone and escitalopram complicating #1 - Continue home regimen as previous. 3. Tobacco Abuse compounding #1 & #2 - Tobacco Cessation will be strongly encouraged with Nicotine patch offered to control cravings. 4. Overweight; BMI of 27.5 this admission adding to the burden of disease outlined from #1 - #3 - Weight loss will be recommended. Check TSH. 5. History of admission here from March 12, 2021 to March 15, 2021 for treatment of acute alcohol intoxication in the setting of chronic alcohol abuse complicated by depression and tobacco abuse - Noted with evolving pattern of serial readmission. 6. DVT prophylaxis - Enoxaparin 40 mg sq daily. Total time: Approximately (but not less than) 75 minutes. Charges/Coding Visit Charges Inpatient E&M: 59016 Init Hosp L3
--- OUTSIDE RECORDS SUMMARY | 2025-04-16 20:09 | XMS RPT_ITS | CCD ---
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 [id number] Director: Armando Zamora M.D.#### CBCDIF ####Unless otherwise noted, all testing performed by [address] [phone]: [id number] Director: Armando Zamora M.D. CO2 molar conc 27 mmol/L Normal 21-32 [facility] Comment on above: Performed By: #### C MET, LIPASE, PT, PTT, EDCTNI ####Unless otherwise noted, all testing performed by [address], [place] [phone]: [id number] Director: Armando Zamora M.D.#### CBCDIF ####Unless otherwise noted, all testing performed by [address] [phone]: [id number] Director: Armando Zamora M.D. Creatinine mass conc 0.92 mg/dL Normal 0.40-1.10 [facility] Comment on above: Performed By: #### C MET, LIPASE, PT, PTT, EDCTNI ####Unless otherwise noted, all testing performed by [address] [phone]: [id number] Director: Armando Zamora M.D.#### CBCDIF ####Unless otherwise noted, all testing performed by [address] [phone]: [id number] Director: Armando Zamora M.D. GFR/1.73 sq M predicted among blacks MDRD vol rate/area (S/P/Bld) mL/min/{1.73_m2} Normal [facility] Comment on above: Result Comment: Afri can Prydeinig GFR Calc Performed By: #### C MET, LIPASE, PT, PTT, EDCTNI ####Unless otherwise noted, all testing performed by [address] [phone]: [id number] Director: Armando Zamora M.D.#### CBCDIF ####Unless otherwise noted, all testing performed by [address] [phone]: [id number] Director: Armando Zamora M.D. GFR/1.73 sq M predicted among non-blacks MDRD vol rate/area (S/P/Bld) mL/min/{1.73_m2} Normal [facility] Comment on above: Result Comment: Non- GFR [...] ####Unless otherwise noted, all testing performed by [address] [phone]: [id number] Director: Armando Zamora M.D.#### CBCDIF ####Unless otherwise noted, all testing performed by [address] [phone]: [id number] Director: Armando Zamora M.D. Glucose mass conc 79 mg/dL Normal 70-99 [facility] Comment on above: Result Comment: This test result might be falsely depressed or falsely elevated onsamples drawn from patients taking Sulfasalazine and Sulfapyridine.Venipuncture should occur prior to taking either of these drugs. Performed By: #### C MET, LIPASE, PT, PTT, EDCTNI ####Unless otherwise noted, all testing performed by [address] [phone]: [id number] Director: Armando Zamora M.D.#### CBCDIF ####Unless otherwise noted, all testing performed by [address] [phone]: [id number] Director: Armando Zamora M.D. Potassium molar conc 2.8 mmol/L Low 3.5-5.1 [facility] Comment on above: Performed By: #### C MET, LIPASE, PT, PTT, EDCTNI ####Unless otherwise noted, all testing performed by [address] [phone]: [id number] Director: Armando Zamora M.D.#### CBCDIF ####Unless otherwise noted, all testing performed by [address] [phone]: [id number] Director: Armando Zamora M.D. Sodium molar conc 137 mmol/L Normal 135-145 [facility] Comment on above: Performed By: #### C MET, LIPASE, PT, PTT, EDCTNI ####Unless otherwise noted, all testing performed by [address] [phone]: [id number] Director: Armando Zamora M.D.#### CBCDIF ####Unless otherwise noted, all testing performed by [address] [phone]: [id number] Director: Armando Zamora M.D. Urea nitrogen mass conc 2 mg/dL Low 8-25 [facility] Comment on above: Performed By: #### C MET, LIPASE, PT, PTT, EDCTNI ####Unless otherwise noted, all testing performed by [address] [phone]: [id number] Director: Armando Zamora M.D.#### CBCDIF ####Unless otherwise noted, all testing performed by [address] [phone]: [id number] Director: Aramndo Zamora M.D. CBC with Diffon 06-29-2018 Basophils Auto #/vol (Bld) 0.0 K/mcL Normal 0-0.2 [facility] Comment on above: Performed By: #### C MET, LIPASE, PT, PTT, EDCTNI ####Unless otherwise noted, all testing performed by [address] [phone]: [id number] Director: Armando Zamora M.D.#### CBCDIF ####Unless otherwise noted, all testing performed by [address] [phone]: [id number] Director: Armando Zamora M.D. Basophils/100 WBC Auto (Bld) 0.3 % Normal [facility] Comment on above: Performed By: #### C MET, LIPASE, PT, PTT, EDCTNI ####Unless otherwise noted, all testing performed by [address] [phone]: [id number] Director: Armando Zamora M.D.#### CBCDIF ####Unless otherwise noted, all testing performed by [address] [phone]: [id number] Director: Armando Zamora M.D. Eosinophils Auto #/vol (Bld) 0.0 K/mcL Normal 0-0.5 [facility] Comment on above: Performed By: #### C MET, LIPASE, PT, PTT, EDCTNI ####Unless otherwise noted, all testing performed by [address] [phone]: [id number] Director: Armando Zamora M.D.#### CBCDIF ####Unless otherwise noted, all testing performed by [address] [phone]: [id number] Director: Armando Zamora M.D. Eosinophils/100 WBC Auto (Bld) 0.7 % Normal [facility] Comment on above: Performed By: #### C MET, LIPASE, PT, PTT, EDCTNI ####Unless otherwise noted, all testing performed by [address] [phone]: [id number] Director: Armando Zamora M.D.#### CBCDIF ####Unless otherwise noted, all testing performed by [address] [phone]: [id number] Director: Armando Zamora M.D. Erythrocyte distribution width Auto Ratio (RBC) 14.7 % High 10-14.4 [facility] Comment on above: Performed By: #### C MET, LIPASE, PT, PTT, EDCTNI ####Unless otherwise noted, all testing performed by [address] [phone]: [id number] Director: Armando Zamora M.D.#### CBCDIF ####Unless otherwise noted, all testing performed by [place] [phone]: [id number] Director: Armando Zamora M.D. Hematocrit Auto Volume Fraction (Bld) 34.7 % Normal 34.4-44.8 [facility] Comment on above: Performed By: #### C MET, LIPASE, PT, PTT, EDCTNI ####Unless otherwise noted, all testing performed by [address] [phone]: [id number] Director: Armando Zamora M.D.#### CBCDIF ####Unless otherwise noted, all testing performed by [address] [phone]: [id number] Director: Armando Zamora M.D. Hemoglobin mass conc (Bld) 12.0 g/dL Normal 11.6-15.4 [facility] Comment on above: Performed By: #### C MET, LIPASE, PT, PTT, EDCTNI ####Unless otherwise noted, all testing performed by [address] [phone]: [id number] Director: Armando Zamora M.D.#### CBCDIF ####Unless otherwise noted, all testing performed by [address] [phone]: [id number] Director: Armando Zamora M.D. Lymphocytes Auto #/vol (Bld) 0.6 K/mcL Low 1.0-3.7 [facility] Comment on above: Performed By: #### C MET, LIPASE, PT, PTT, EDCTNI ####Unless otherwise noted, all testing performed by [address] [phone]: [id number] Director: Armando Zamora M.D.#### CBCDIF ####Unless otherwise noted, all testing performed by [address] [phone]: [id number] Director: Armando Zamora M.D. Lymphocytes/100 WBC Auto (Bld) 12.7 % Normal [facility] Comment on above: Performed By: #### C MET, LIPASE, PT, PTT, EDCTNI ####Unless otherwise noted, all testing performed by [address] [phone]: [id number] Director: Armando Zamora M.D.#### CBCDIF ####Unless otherwise noted, all testing performed by [address] [phone]: [id number] Director: Armando Zamora M.D. MCH Auto Entitic mass (RBC) 32.9 pg Normal 27.9-33.9 [facility] Comment on above: Performed By: #### C MET, LIPASE, PT, PTT, EDCTNI ####Unless otherwise noted, all testing performed by [address] [phone]: [id number] Director: Armando Zamora M.D.#### CBCDIF ####Unless otherwise noted, all testing performed by [address] [phone]: [id number] Director: Armando Zamora M.D. MCHC Auto mass conc (RBC) 34.5 g/dL Normal 33.1-35.1 [facility] Comment on above: Performed By: #### C MET, LIPASE, PT, PTT, EDCTNI ####Unless otherwise noted, all testing performed by [address] [phone]: [id number] Director: Armando Zamora M.D.#### CBCDIF ####Unless otherwise noted, all testing performed by [address] [phone]: [id number] Director: Armando Zamora M.D. MCV Auto Entitic volume (RBC) 95.3 fL Normal 82.6-98.9 [facility] Comment on above: Performed By: #### C MET, LIPASE, PT, PTT, EDCTNI ####Unless otherwise noted, all testing performed by [address] [phone]: [id number] Director: Armando Zamora M.D.#### CBCDIF ####Unless otherwise noted, all testing performed by [address] [phone]: [id number] Director: Armando Zamora M.D. Monocytes Auto #/vol (Bld) 0.5 K/mcL Normal 0.1-0.6 [facility] Comment on above: Performed By: #### C MET, LIPASE, PT, PTT, EDCTNI ####Unless otherwise noted, all testing performed by [address] [phone]: [id number] Director: Armando Zamora M.D.#### CBCDIF ####Unless otherwise noted, all testing performed by [address] [phone]: [id number] Director: Armando Zamora M.D. Monocytes/100 WBC Auto (Bld) 9.3 % Normal [facility] Comment on above: Performed By: #### C MET, LIPASE, PT, PTT, EDCTNI ####Unless otherwise noted, all testing performed by [address] [phone]: [id number] Director: Armando Zamora M.D.#### CBCDIF ####Unless otherwise noted, all testing performed by [address] [phone]: [id number] Director: Armando Zamora M.D. Neutrophils Auto #/vol (Bld) 3.9 K/mcL Normal 1.2-6.9 [facility] Comment on above: Performed By: #### C MET, LIPASE, PT, PTT, EDCTNI ####Unless otherwise noted, all testing performed by [address] [phone]: [id number] Director: Armando Zamora M.D.#### CBCDIF ####Unless otherwise noted, all testing performed by [address] [phone]: [id number] Director: Armando Zamora M.D. Platelet mean volume Auto Entitic volume (Bld) 9.1 fL Normal 7.0-10.6 [facility] Comment on above: Performed By: #### C MET, LIPASE, PT, PTT, EDCTNI ####Unless otherwise noted, all testing performed by [address] [phone]: [id number] Director: Armando Zamora M.D.#### CBCDIF ####Unless otherwise noted, all testing performed by [address] [phone]: [id number] Director: Armando Zamora M.D. Platelets Auto #/vol (Bld) 41 K/mcL Low 162-402 [facility] Comment on above: Result Comment: Smea r reviewed to evaluate platelet count and morphology. Performed By: #### C MET, LIPASE, PT, PTT, EDCTNI ####Unless otherwise noted, all testing performed by [address] [phone]: [id number] Director: Armando Zamora M.D.#### CBCDIF ####Unless otherwise noted, all testing performed by [address] [phone]: [id number] Director: Armando Zamora M.D. RBC Auto #/vol (Bld) 3.64 M/mcL Low 3.7-5.0 [facility] Comment on above: Performed By: #### C MET, LIPASE, PT, PTT, EDCTNI ####Unless otherwise noted, all testing performed by [address] [phone]: [id number] Director: Armando Zamora M.D.#### CBCDIF ####Unless otherwise noted, all testing performed by [place] [phone]: [id number] Director: Armando Zamora M.D. Segmented Neut % 77.0 % Normal [facility] Comment on above: Performed By: #### C MET, LIPASE, PT, PTT, EDCTNI ####Unless otherwise noted, all testing performed by [address] [phone]: [id number] Director: Armando Zamora M.D.#### CBCDIF ####Unless otherwise noted, all testing performed by [address] [phone]: [id number] Director: Armando Zamora M.D. WBC Auto #/vol (Bld) 5.0 K/mcL Normal 3.4-10.6 [facility] Comment on above: Performed By: #### C MET, LIPASE, PT, PTT, EDCTNI ####Unless otherwise noted, all testing performed by [address] [phone]: [id number] Director: Armando Zamora M.D.#### CBCDIF ####Unless otherwise noted, all testing performed by [address] [phone]: [id number] Director: Armando Zamora M.D. Potassiumon 06-29-2018 Potassium molar conc 3.8 mmol/L Normal 3.5-5.1 [facility] Comment on above: Performed By: #### C MET, LIPASE, PT, PTT, EDCTNI ####Unless otherwise noted, all testing performed by [address] [phone]: [id number] Director: Armando Zamora M.D.#### CBCDIF ####Unless otherwise noted, all testing performed by [address] [phone]: [id number] Director: Armando Zamora M.D. Urinalysis, Routineon 2017 Bacteria LM.HPF #/area (Urine sed) Few Abnormal NS;RARE [facility] Comment on above: Performed By: #### C MET, LIPASE, PT, PTT, EDCTNI ####Unless otherwise noted, all testing performed by [address] [phone]: [id number] Director: Armando Zamora M.D.#### CBCDIF ####Unless otherwise noted, all testing performed by [address] [phone]: [id number] Director: Armando Zamora M.D. Bilirubin,Urine Negative Normal NEG;NEGATIVE [facility] Comment on above: Performed By: #### C MET, LIPASE, PT, PTT, EDCTNI ####Unless otherwise noted, all testing performed by [address] [phone]: [id number] Director: Armando Zamora M.D.#### CBCDIF ####Unless otherwise noted, all testing performed by [address] [phone]: [id number] Director: Armando Zamora M.D. Blood,Urine Small Abnormal NEG;NEGATIVE [facility] Comment on above: Performed By: #### C MET, LIPASE, PT, PTT, EDCTNI ####Unless otherwise noted, all testing performed by [address] [phone]: [id number] Director: Armando Zamora M.D.#### CBCDIF ####Unless otherwise noted, all testing performed by [address]8[address]CLIA: [id number] Director: Armando Zamora M.D. Character Cloudy Normal [facility] Comment on above: Performed By: #### C MET, LIPASE, PT, PTT, EDCTNI ####Unless otherwise noted, all testing performed by [address] [phone]: [id number] Director: Armando Zamora M.D.#### CBCDIF ####Unless otherwise noted, all testing performed by [place] [address]CLIA: [id number] Director: Armando Zamora M.D. Color Nom (U) Light Yellow Normal [facility] Comment on above: Performed By: #### C MET, LIPASE, PT, PTT, EDCTNI ####Unless otherwise noted, all testing performed by [address] [phone]: [id number] Director: Armando Zamora M.D.#### CBCDIF ####Unless otherwise noted, all testing performed by [address]8509CLIA: [id number] Director: Armando Zamora M.D. Glucose Ql (U) Negative Normal NEG;NEGATIVE [facility] Comment on above: Performed By: #### C MET, LIPASE, PT, PTT, EDCTNI ####Unless otherwise noted, all testing performed by [address] [phone]: [id number] Director: Armando Zamora M.D.#### CBCDIF ####Unless otherwise noted, all testing performed by [address]8509CLIA: [id number] Director: Armando Zamora M.D. Ketone,Urine Negative Normal NEGATIVE;NEG [facility] Comment on above: Performed By: #### C MET, LIPASE, PT, PTT, EDCTNI ####Unless otherwise noted, all testing performed by [address] [phone]: [id number] Director: Armando Zamora M.D.#### CBCDIF ####Unless otherwise noted, all testing performed by [place] [phone]: [id number] Director: Armando Zamora M.D. Leuk.Esterase,Urin e Large Abnormal Negative [facility] Comment on above: Performed By: #### C MET, LIPASE, PT, PTT, EDCTNI ####Unless otherwise noted, all testing performed by [address] [phone]: [id number] Director: Armando Zamora M.D.#### CBCDIF ####Unless otherwise noted, all testing performed by [address] [phone]: [id number] Director: Armando Zamora M.D. Mucus, Urine Few Abnormal None Seen [facility] Comment on above: Performed By: #### C MET, LIPASE, PT, PTT, EDCTNI ####Unless otherwise noted, all testing performed by [address] [phone]: [id number] Director: Armando Zamora M.D.#### CBCDIF ####Unless otherwise noted, all testing performed by [address] [phone]: [id number] Director: Armando Zamora M.D. Nitrite,Urine Negative Normal NEG;NEGATIVE [facility] Comment on above: Performed By: #### C MET, LIPASE, PT, PTT, EDCTNI ####Unless otherwise noted, all testing performed by [address] [phone]: [id number] Director: Armando Zamora M.D.#### CBCDIF ####Unless otherwise noted, all testing performed by [address] [address] [id number]: [id number] Director: Armando Zamora M.D. pH Test strip (U) 7.5 [pH] Normal 4.5-8.0 [facility] Comment on above: Performed By: #### C MET, LIPASE, PT, PTT, EDCTNI ####Unless otherwise noted, all testing performed by [address] [phone]: [id number] Director: Armando Zamora M.D.#### CBCDIF ####Unless otherwise noted, all testing performed by [address] [id number]: [id number] Director: Armando Zamora M.D. Protein,Urine Negative Normal NEGATIVE;NEG [facility] Comment on above: Performed By: #### C MET, LIPASE, PT, PTT, EDCTNI ####Unless otherwise noted, all testing performed by [address] [phone]: [id number] Director: Armando Zamora M.D.#### CBCDIF ####Unless otherwise noted, all testing performed by [address] [phone]: [id number] Director: Armando Zamora M.D. RBC LM.HPF #/area (Urine sed) 3-5 Abnormal 0-3+;NS [facility] Comment on above: Performed By: #### C MET, LIPASE, PT, PTT, EDCTNI ####Unless otherwise noted, all testing performed by [address] [phone]: [id number] Director: Armando Zamora M.D.#### CBCDIF ####Unless otherwise noted, all testing performed by [address] [phone]: [id number] Director: Armando Zamora M.D. Specific Fowler,Urine 1.015 Normal 1.003-1.029 [facility] Comment on above: Performed By: #### C MET, LIPASE, PT, PTT, EDCTNI ####Unless otherwise noted, all testing performed by [address] [id number]: [id number] Director: Armando Zamora M.D.#### CBCDIF ####Unless otherwise noted, all testing performed by [address] [phone]: [id number] Director: Armando Zamora M.D. Squamous Epithelial 0-3 Normal 0-3+;[facility] Comment on above: Performed By: #### C MET, LIPASE, PT, PTT, EDCTNI ####Unless otherwise noted, all testing performed by [address] [phone]: [id number] Director: Armando Zamora M.D.#### CBCDIF ####Unless otherwise noted, all testing performed by [address] [phone]: [id number] Director: Armando Zamora M.D. Urobilinogen,Urine 0.2 EU/dL Normal 0.2 [facility] Comment on above: Performed By: #### C MET, LIPASE, PT, PTT, EDCTNI ####Unless otherwise noted, all testing performed by [address] [phone]: [id number] Director: Armando Zamora M.D.#### CBCDIF ####Unless otherwise noted, all testing performed by [address], [place] [phone]: [id number] Director: Armando Zamora M.D. WBC LM.HPF #/area (Urine sed) Too Numerous to Count Abnormal 0-3+;3-5+;NS [facility] Comment on above: Performed By: #### C MET, LIPASE, PT, PTT, EDCTNI ####Unless otherwise noted, all testing performed by [address] [phone]: [id number] Director: Armando Zamora M.D.#### CBCDIF ####Unless otherwise noted, all testing performed by [address] [phone]: [id number] Director: Armando Zamora M.D. Alcohol, Medicalon 8 Ethanol mass conc Negative Normal [facility] Comment on above: Performed By: #### A LC ####Unless otherwise noted, all testing performed by [address] [phone]: [id number] Director: Armando Zamora M.D. CBC with Diffon 06-28-2018 Basophils Auto #/vol (Bld) 0.0 K/mcL Normal 0-0.2 [facility] Comment on above: Performed By: #### C MET, LIPASE, PT, PTT, EDCTNI ####Unless otherwise noted, all testing performed by [address] [phone]: [id number] Director: Armando Zamora M.D.#### CBCDIF ####Unless otherwise noted, all testing performed by [address], [place] [phone]: [id number] Director: Armando Zamora M.D. Basophils/100 WBC Auto (Bld) 0.3 % Normal [facility] Comment on above: Performed By: #### C MET, LIPASE, PT, PTT, EDCTNI ####Unless otherwise noted, all testing performed by [address] [phone]: [id number] Director: Armando Zamora M.D.#### CBCDIF ####Unless otherwise noted, all testing performed by [address] [phone]: [id number] Director: Armando Zamora M.D. Eosinophils Auto #/vol (Bld) 0.0 K/mcL Normal 0-0.5 [facility] Comment on above: Performed By: #### C MET, LIPASE, PT, PTT, EDCTNI ####Unless otherwise noted, all testing performed by [address] [phone]: [id number] Director: Armando Zamora M.D.#### CBCDIF ####Unless otherwise noted, all testing performed by [address] [phone]: [id number] Director: Armando Zamora M.D. Eosinophils/100 WBC Auto (Bld) 0.1 % Normal [facility] Comment on above: Performed By: #### C MET, LIPASE, PT, PTT, EDCTNI ####Unless otherwise noted, all testing performed by [address] [phone]: [id number] Director: Armando Zamora M.D.#### CBCDIF ####Unless otherwise noted, all testing performed by [address] [phone]: [id number] Director: Armando Zamora M.D. Erythrocyte distribution width Auto Ratio (RBC) 14.5 % High 10.0-14.4 [facility] Comment on above: Performed By: #### C MET, LIPASE, PT, PTT, EDCTNI ####Unless otherwise noted, all testing performed by [address] [phone]: [id number] Director: Armando Zamora M.D.#### CBCDIF ####Unless otherwise noted, all testing performed by [address] [phone]: [id number] Director: Amrando Zamora M.D. Hematocrit Auto Volume Fraction (Bld) 39.7 % Normal 34.4-44.8 [facility] Comment on above: Performed By: #### C MET, LIPASE, PT, PTT, EDCTNI ####Unless otherwise noted, all testing performed by [address] [phone]: [id number] Director: Armando Zamora M.D.#### CBCDIF ####Unless otherwise noted, all testing performed by [address] [phone]: [id number] Director: Armando Zamora M.D. Hemoglobin mass conc (Bld) 13.6 g/dL Normal 11.6-15.4 [facility] Comment on above: Performed By: #### C MET, LIPASE, PT, PTT, EDCTNI ####Unless otherwise noted, all testing performed by [address] [phone]: [id number] Director: Armando Zamora M.D.#### CBCDIF ####Unless otherwise noted, all testing performed by [address] [phone]: [id number] Director: Armando Zamora M.D. Lymphocytes Auto #/vol (Bld) 0.4 K/mcL Low 1.0-3.7 [facility] Comment on above: Performed By: #### C MET, LIPASE, PT, PTT, EDCTNI ####Unless otherwise noted, all testing performed by [address] [phone]: [id number] Director: Armando Zamora M.D.#### CBCDIF ####Unless otherwise noted, all testing performed by [address] [phone]: [id number] Director: Armando Zamora M.D. Lymphocytes/100 WBC Auto (Bld) 5.5 % Normal [facility] Comment on above: Performed By: #### C MET, LIPASE, PT, PTT, EDCTNI ####Unless otherwise noted, all testing performed by [address] [phone]: [id number] Director: Armando Zamora M.D.#### CBCDIF ####Unless otherwise noted, all testing performed by [address] [phone]: [id number] Director: Armando Zamora M.D. MCH Auto Entitic mass (RBC) 33.0 pg Normal 27.9-33.9 [facility] Comment on above: Performed By: #### C MET, LIPASE, PT, PTT, EDCTNI ####Unless otherwise noted, all testing performed by [address] [phone]: [id number] Director: Armando Zamora M.D.#### CBCDIF ####Unless otherwise noted, all testing performed by [address] [phone]: [id number] Director: Armando Zamora M.D. MCHC Auto mass conc (RBC) 34.3 g/dL Normal 33.1-35.1 [facility] Comment on above: Performed By: #### C MET, LIPASE, PT, PTT, EDCTNI ####Unless otherwise noted, all testing performed by [address] [phone]: [id number] Director: Armando Zamora M.D.#### CBCDIF ####Unless otherwise noted, all testing performed by [address] [phone]: [id number] Director: Armando Zamora M.D. MCV Auto Entitic volume (RBC) 96.3 fL Normal 82.6-98.9 [facility] Comment on above: Performed By: #### C MET, LIPASE, PT, PTT, EDCTNI ####Unless otherwise noted, all testing performed by [address] [phone]: [id number] Director: Armando Zamora M.D.#### CBCDIF ####Unless otherwise noted, all testing performed by [address] [phone]: [id number] Director: Armando Zamora M.D. Monocytes Auto #/vol (Bld) 0.5 K/mcL Normal 0.1-0.6 [facility] Comment on above: Performed By: #### C MET, LIPASE, PT, PTT, EDCTNI ####Unless otherwise noted, all testing performed by [address] [phone]: [id number] Director: Armando Zamora M.D.#### CBCDIF ####Unless otherwise noted, all testing performed by [place] [phone]: [id number] Director: Armando Zamora M.D. Monocytes/100 WBC Auto (Bld) 6.9 % Normal [facility] Comment on above: Performed By: #### C MET, LIPASE, PT, PTT, EDCTNI ####Unless otherwise noted, all testing performed by [address] [phone]: [id number] Director: Armando Zamora M.D.#### CBCDIF ####Unless otherwise noted, all testing performed by [address] [phone]: [id number] Director: Armando Zamora M.D. Neutrophils Auto #/vol (Bld) 5.8 K/mcL Normal 1.2-6.9 [facility] Comment on above: Performed By: #### C MET, LIPASE, PT, PTT, EDCTNI ####Unless otherwise noted, all testing performed by [address] [phone]: [id number] Director: Armando Zamora M.D.#### CBCDIF ####Unless otherwise noted, all testing performed by [address]8509CLIA: [id number] Director: Armando Zamora M.D. Platelet mean volume Auto Entitic volume (Bld) 8.8 fL Normal 7.0-10.6 [facility] Comment on above: Performed By: #### C MET, LIPASE, PT, PTT, EDCTNI ####Unless otherwise noted, all testing performed by [address] [phone]: [id number] Director: Armando Zamora M.D.#### CBCDIF ####Unless otherwise noted, all testing performed by [address]8509CLIA: [id number] Director: Armando Zamora M.D. Platelets Auto #/vol (Bld) 55 K/mcL Low 162-402 [facility] Comment on above: Result Comment: Smea r reviewed to evaluate platelet count and morphology. Performed By: #### C MET, LIPASE, PT, PTT, EDCTNI ####Unless otherwise noted, all testing performed by [address] [phone]: [id number] Director: Armando Zamora M.D.#### CBCDIF ####Unless otherwise noted, all testing performed by [address] [phone]: [id number] Director: Armando Zamora M.D. RBC Auto #/vol (Bld) 4.12 M/mcL Normal 3.7-5.0 [facility] Comment on above: Performed By: #### C MET, LIPASE, PT, PTT, EDCTNI ####Unless otherwise noted, all testing performed by [address] [id number]: [id number] Director: Armando Zamora M.D.#### CBCDIF ####Unless otherwise noted, all testing performed by [address] [phone]: [id number] Director: Armando Zamora M.D. RBC morphology finding Nom (Bld) Normal Normal Normal [facility] Comment on above: Performed By: #### C MET, LIPASE, PT, PTT, EDCTNI ####Unless otherwise noted, all testing performed by [address] [phone]: [id number] Director: Armando Zamora M.D.#### CBCDIF ####Unless otherwise noted, all testing performed by [address] [phone]: [id number] Director: Armando Zamora M.D. Segmented Neut % 87.2 % Normal [facility] Comment on above: Performed By: #### C MET, LIPASE, PT, PTT, EDCTNI ####Unless otherwise noted, all testing performed by [address] [phone]: [id number] Director: Armando Zamora M.D.#### CBCDIF ####Unless otherwise noted, all testing performed by [address] [phone]: [id number] Director: Armando Zamora M.D. WBC Auto #/vol (Bld) 6.7 K/mcL Normal 3.4-10.6 [facility] Comment on above: Performed By: #### C MET, LIPASE, PT, PTT, EDCTNI ####Unless otherwise noted, all testing performed by [address] [phone]: [id number] Director: Armando Zamora M.D.#### CBCDIF ####Unless otherwise noted, all testing performed by [address] [phone]: [id number] Director: Armando Zamora M.D. Comprehensive Metabolic Pane prudencio 06-28-2018 Albumin mass conc 3.2 g/dL Normal 3.2-5.2 [facility] Comment on above: Performed By: #### C MET, LIPASE, PT, PTT, EDCTNI ####Unless otherwise noted, all testing performed by [address] [phone]: [id number] Director: Armando Zamora M.D.#### CBCDIF ####Unless otherwise noted, all testing performed by [address] [phone]: [id number] Director: Armando Zamora M.D. ALP enzyme act/vol 120 U/L Normal 40-140 [facility] Comment on above: Performed By: #### C MET, LIPASE, PT, PTT, EDCTNI ####Unless otherwise noted, all testing performed by [address] [phone]: [id number] Director: Armando Zamora M.D.#### CBCDIF ####Unless otherwise noted, all testing performed by [address] [phone]: [id number] Director: Armando Zamora M.D. ALT enzyme act/vol 53 U/L Normal 14-65 [facility] Comment on above: Result Comment: This test result might be falsely depressed or falsely elevated onsamples drawn from patients taking Sulfasalazine and Sulfapyridine.Venipuncture should occur prior to taking either of these drugs. Performed By: #### C MET, LIPASE, PT, PTT, EDCTNI ####Unless otherwise noted, all testing performed by [address] [phone]: [id number] Director: Armando Zamora M.D.#### CBCDIF ####Unless otherwise noted, all testing performed by [address] [phone]: [id number] Director: Armando Zamora M.D. AST enzyme act/vol 100 U/L High 0-45 [facility] Comment on above: Result Comment: This test result might be falsely depressed or falsely elevated onsamples drawn from patients taking Sulfasalazine and Sulfapyridine.Venipuncture should occur prior to taking either of these drugs. Performed By: #### C MET, LIPASE, PT, PTT, EDCTNI ####Unless otherwise noted, all testing performed by [address] [phone]: [id number] Director: Armando Zamora M.D.#### CBCDIF ####Unless otherwise noted, all testing performed by [address] [phone]: [id number] Director: Armando Zamora M.D. Bilirubin mass conc 0.5 mg/dL Normal 0.3-1.2 [facility] Comment on above: Performed By: #### C MET, LIPASE, PT, PTT, EDCTNI ####Unless otherwise noted, all testing performed by [address] [phone]: [id number] Director: Armando Zamora M.D.#### CBCDIF ####Unless otherwise noted, all testing performed by [address] [phone]: [id number] Director: Armando Zamora M.D. Calcium mass conc 7.7 mg/dL Low 8.4-10.2 [facility] Comment on above: Performed By: #### C MET, LIPASE, PT, PTT, EDCTNI ####Unless otherwise noted, all testing performed by [address] [phone]: [id number] Director: Armando Zamora M.D.#### CBCDIF ####Unless otherwise noted, all testing performed by [address] [phone]: [id number] Director: Armando Zamora M.D. Chloride molar conc 97 mmol/L Low 98-108 [facility] Comment on above: Performed By: #### C MET, LIPASE, PT, PTT, EDCTNI ####Unless otherwise noted, all testing performed by [address] [phone]: [id number] Director: Armando Zamora M.D.#### CBCDIF ####Unless otherwise noted, all testing performed by [address] [phone]: [id number] Director: Armando Zamora M.D. CO2 molar conc 28 mmol/L Normal 21-32 [facility] Comment on above: Performed By: #### C MET, LIPASE, PT, PTT, EDCTNI ####Unless otherwise noted, all testing performed by [address] [phone]: [id number] Director: Armando Zamora M.D.#### CBCDIF ####Unless otherwise noted, all testing performed by [address] [phone]: [id number] Director: Armando Zamora M.D. Creatinine mass conc 1.00 mg/dL Normal 0.40-1.10 [facility] Comment on above: Performed By: #### C MET, LIPASE, PT, PTT, EDCTNI ####Unless otherwise noted, all testing performed by [address] [phone]: [id number] Director: Armando Zamora M.D.#### CBCDIF ####Unless otherwise noted, all testing performed by [address] [phone]: [id number] Director: Armando Zamora M.D. GFR/1.73 sq M predicted among blacks MDRD vol rate/area (S/P/Bld) mL/min/{1.73_m2} Normal [facility] Comment on above: Result Comment: Afri can Prydeinig GFR Calc Performed By: #### C MET, LIPASE, PT, PTT, EDCTNI ####Unless otherwise noted, all testing performed by [address] [phone]: [id number] Director: Armando Zamora M.D.#### CBCDIF ####Unless otherwise noted, all testing performed by [address] [phone]: [id number] Director: Armando Zamora M.D. GFR/1.73 sq M predicted among non-blacks MDRD vol rate/area (S/P/Bld) mL/min/{1.73_m2} Normal [facility] Comment on above: Result Comment: Non- GFR [...] otherwise noted, all testing performed by [facility] [address] [phone]: [id number] Director: Armando Zamora M.D.#### CBCDIF ####Unless otherwise noted, all testing performed by [address] [phone]: [id number] Director: Armando Zamora M.D. Glucose mass conc 129 mg/dL High 70-99 [facility] Comment on above: Result Comment: This test result might be falsely depressed or falsely elevated onsamples drawn from patients taking Sulfasalazine and Sulfapyridine.Venipuncture should occur prior to taking either of these drugs. Performed By: #### C MET, LIPASE, PT, PTT, EDCTNI ####Unless otherwise noted, all testing performed by [address] [phone]: [id number] Director: Armando Zamora M.D.#### CBCDIF ####Unless otherwise noted, all testing performed by [address] [phone]: [id number] Director: Armando Zamora M.D. Potassium molar conc 3.3 mmol/L Low 3.5-5.1 [facility] Comment on above: Performed By: #### C MET, LIPASE, PT, PTT, EDCTNI ####Unless otherwise noted, all testing performed by [address] [phone]: [id number] Director: Armando Zamora M.D.#### CBCDIF ####Unless otherwise noted, all testing performed by [address] [phone]: [id number] Director: Armando Zamora M.D. Protein mass conc 7.8 g/dL Normal 6.0-8.0 [facility] Comment on above: Performed By: #### C MET, LIPASE, PT, PTT, EDCTNI ####Unless otherwise noted, all testing performed by [address] [phone]: [id number] Director: Armando Zamora M.D.#### CBCDIF ####Unless otherwise noted, all testing performed by [address] [phone]: [id number] Director: Armando Zamora M.D. Sodium molar conc 136 mmol/L Normal 135-145 [facility] Comment on above: Performed By: #### C MET, LIPASE, PT, PTT, EDCTNI ####Unless otherwise noted, all testing performed by [address] [phone]: [id number] Director: Armando Zamora M.D.#### CBCDIF ####Unless otherwise noted, all testing performed by [address] [phone]: [id number] Director: Armando Zamora M.D. Urea nitrogen mass conc 2 mg/dL Low 8-25 [facility] Comment on above: Performed By: #### C MET, LIPASE, PT, PTT, EDCTNI ####Unless otherwise noted, all testing performed by [address] [phone]: [id number] Director: Armando Zamora M.D.#### CBCDIF ####Unless otherwise noted, all testing performed by [address] [phone]: [id number] Director: Armando Zamora M.D. Culture, Urineon 06-28-2018 [...] 1 FTrimeth/Sulfa S <= 20 F Normal [facility] Comment on above: Performed By: #### C MET, LIPASE, PT, PTT, EDCTNI ####Unless otherwise noted, all testing performed by [address] [phone]: [id number] Director: Armando Zamora M.D.#### CBCDIF ####Unless otherwise noted, all testing performed by [address] [phone]: [id number] Director: Armando Zamora M.D. Drugs of Abuse, Urineon Amphetamines,Ur None Detected Normal None Detected [facility] Comment on above: Performed By: #### D RUGSCRU ####Unless otherwise noted, all testing performed by [address] [phone]: [id number] Director: Armando Zamora M.D. Barbiturates,Ur None Detected Normal None Detected [facility] Comment on above: Performed By: #### D RUGSCRU ####Unless otherwise noted, all testing performed by [address] [phone]: [id number] Director: Armando Zamora M.D. Benzodiazepine,Ur None Detected Normal None Detected [facility] Comment on above: Performed By: #### D RUGSCRU ####Unless otherwise noted, all testing performed by [address] [phone]: [id number] Director: Armando Zamora M.D. Cannabinoids,Ur None Detected Normal None Detected [facility] Comment on above: Performed By: #### D RUGSCRU ####Unless otherwise noted, all testing performed by [address] [phone]: [id number] Director: Armando Zamora M.D. Cocaine,Ur None Detected Normal None Detected [facility] Comment on above: Performed By: #### D RUGSCRU ####Unless otherwise noted, all testing performed by [address] [phone]: [id number] Director: Armando Zamora M.D. DOA Cutoffs See comment. Normal [facility] Comment on above: Result Comment: Drug s of Abuse, Urine Presumptive Positive Cutoff Concentrations.Amphetamine/Methamphetamine: 1000 ng/mlBarbiturates: 200 ng/mlBenzodiazepines and metabolities: 200 ng/mlCannabinoids: 50 ng/mlCocaine/Benzoylecgonine: 300 ng/mlMethadone:300 ng/mlOpiates: 300 ng/mlOxycodone/Oxymorphone: 100 ng/ml Performed By: #### D SIMI ####Unless otherwise noted, all testing performed by [address] [phone]: [id number] Director: Armando Zamora M.D. Methadone,Ur None Detected Normal None Detected [facility] Comment on above: Performed By: #### D SIMI ####Unless otherwise noted, all testing performed by [address] [phone]: [id number] Director: Armando Zamora M.D. Opiates,Ur None Detected Normal None Detected [facility] Comment on above: Performed By: #### D SIMI ####Unless otherwise noted, all testing performed by [address] [phone]: [id number] Director: Armando Zamora M.D. Oxycodone, Urine None Detected Normal None Detected [facility] Comment on above: Result Comment: THES E DRUGS OF ABUSE TESTS ARE PROVIDED A MEDICAL SCREENING ONLY.POSITIVE RESULTS ARENOT CONFIRMED BY GCMS Performed By: #### D SIMI ####Unless otherwise noted, all testing performed by [address] [phone]: [id number] Director: Armando Zamora M.D. ED Cardiac Troponin-Ion 09-0 Troponin I.cardiac mass conc ng/mL Normal < 45 [facility] Comment on above: Result Comment: Elev ation [...] ####Unless otherwise noted, all testing performed by [address] [phone]: [id number] Director: Armando Zamora M.D.#### CBCDIF ####Unless otherwise noted, all testing performed by [address] [phone]: [id number] Director: Armando Zamora M.D. Lipaseon 06-28-2018 Lipase enzyme act/vol 128 U/L Normal 73-393 [facility] Comment on above: Performed By: #### C MET, LIPASE, PT, PTT, EDCTNI ####Unless otherwise noted, all testing performed by [address] [phone]: [id number] Director: Armando Zamora M.D.#### CBCDIF ####Unless otherwise noted, all testing performed by [address] [phone]: [id number] Director: Armando Zamora M.D. Partial Thromboplastin Timeo n 06-28-2018 aPTT Coag time (Bld) 28 s Normal 23-34 [facility] Comment on above: Result Comment: Laurie pelayo therapeutic range for PTT is 68-104 sec. Performed By: #### C MET, LIPASE, PT, PTT, EDCTNI ####Unless otherwise noted, all testing performed by [address] [place] [address], [place] [phone]: [id number] Director: Armando Zamora M.D.#### CBCDIF ####Unless otherwise noted, all testing performed by [facility] [place], [place] [phone]: [id number] Director: Armando Zamora M.D. Test,Urine Qualon 06-28-2018 HCG.beta subunit ( test) Ql (U) Negative Normal Negative [facility] Comment on above: Result Comment: Rapi d [...] hCG test. Performed By: #### P JOSE, [facility] ####Unless otherwise noted, all testing performed by [address] [phone]: [id number] Director: Armando Zamora M.D. Protimeon 06-28-2018 INR Coag RelTime (PPP) 1.07 {INR} Normal [facility] Comment on above: Result Comment: The [employer] recommended therapeutic rangefor Warfarin (Coumadin) therapy goals:PROPHYLAXIS/TREATMENT of:INRVenous Thrombosis, Pulmonary Embolism2.0-3.0Prevention of VTE (Orthopedic Surgery)2.0-3.0Atrial Fibrillation2.0-3.0Myocardial Infarction2.0-3.0Mechanical Prosthetic Heart Valves (Aortic position)2.0-3.0Mechanical Prosthetic Heart Valves (Mitral Position)2.5-3.5American [employer] of Chest [employer] evidence-based clinical practiceguidelines. CHEST. 2012 (9th ed) Performed By: #### C MET, LIPASE, PT, PTT, EDCTNI ####Unless otherwise noted, all testing performed by [address] [phone]: [id number] Director: Armando Zamora M.D.#### CBCDIF ####Unless otherwise noted, all testing performed by [address] [phone]: [id number] Director: Armando Zamora M.D. Prothrombin time (PT) Coag time (PPP) 13.6 s Normal 11.8-14.3 [facility] Comment on above: Performed By: #### C MET, LIPASE, PT, PTT, EDCTNI ####Unless otherwise noted, all testing performed by [address] [phone]: [id number] Director: Armando Zamora M.D.#### CBCDIF ####Unless otherwise noted, all testing performed by [address] [phone]: [id number] Director: Armando Zamora M.D. T4, Freeon 06-28-2018 T4 free mass conc 0.9 ng/dL Normal 0.7-1.7 [facility] Comment on above: Result Comment: Samp les from patients routinely receiving high dose biotin therapy(100-300 mg/day) may show falsely increased results. Please correlateclinically. Performed By: #### C MET, LIPASE, PT, PTT, EDCTNI ####Unless otherwise noted, all testing performed by [address] [phone]: [id number] Director: Armando Zamora M.D.#### CBCDIF ####Unless otherwise noted, all testing performed by [address] [phone]: [id number] Director: Armando Zamora M.D. TSHon 06-28-2018 Thyrotropin Qn 1.80 uIU/mL Normal 0.32-5.00 [facility] Comment on above: Result Comment: Samp les from patients routinely receiving high dose biotin therapy(100-300 mg/day) may show falsely decreased results. Please correlateclinically. Performed By: #### C MET, LIPASE, PT, PTT, EDCTNI ####Unless otherwise noted, all testing performed by [address] [phone]: [id number] Director: Armando Zamora M.D.#### CBCDIF ####Unless otherwise noted, all testing performed by [address] [phone]: [id number] Director: Armando Zamora M.D. Urine with Indicated Culture on 06-28-2018 Bacteria LM.HPF #/area (Urine sed) Many Abnormal NS;RARE [facility] Comment on above: Performed By: #### P REGUR, UIC ####Unless otherwise noted, all testing performed by [address] [phone]: [id number] Director: Armando Zamora M.D. Bilirubin,Urine Negative Normal NEG;NEGATIVE [facility] Comment on above: Performed By: #### P REGUR, UIC ####Unless otherwise noted, all testing performed by [address] [phone]: [id number] Director: Armando Zamora M.D. Blood,Urine Small Abnormal NEG;NEGATIVE [facility] Comment on above: Performed By: #### P REGUR, UIC ####Unless otherwise noted, all testing performed by [address] [phone]: [id number] Director: Armando Zamora M.D. Character Cloudy Normal [facility] Comment on above: Performed By: #### P REGUR, UIC ####Unless otherwise noted, all testing performed by [address] [phone]: [id number] Director: Armando Zamora M.D. Color Nom (U) Yellow Normal [facility] Comment on above: Performed By: #### P REGUR, UIC ####Unless otherwise noted, all testing performed by [address] [phone]: [id number] Director: Armando Zamora M.D. Glucose Ql (U) Negative Normal NEG;NEGATIVE [facility] Comment on above: Performed By: #### P REGUR, UIC ####Unless otherwise noted, all testing performed by [address] [phone]: [id number] Director: Armando Zamora M.D. Ketone,Urine Negative Normal NEGATIVE;NEG [facility] Comment on above: Performed By: #### P REGUR, UIC ####Unless otherwise noted, all testing performed by [address] [phone]: [id number] Director: Armando Zamora M.D. Leuk.Esterase,Urin e Large Abnormal Negative [facility] Comment on above: Performed By: #### P REGUR, UIC ####Unless otherwise noted, all testing performed by [address] [phone]: [id number] Director: Armando Zamora M.D. Mucus, Urine Moderate Abnormal None Seen [facility] Comment on above: Performed By: #### P REGUR, UIC ####Unless otherwise noted, all testing performed by [address] [phone]: [id number] Director: Armando Zamora M.D. Nitrite,Urine Positive Abnormal NEG;NEGATIVE [facility] Comment on above: Performed By: #### P REGUR, UIC ####Unless otherwise noted, all testing performed by [address] [phone]: [id number] Director: Armando Zamora M.D. pH Test strip (U) 7.0 [pH] Normal 4.5-8.0 [facility] Comment on above: Performed By: #### P REGUR, UIC ####Unless otherwise noted, all testing performed by [address] [phone]: [id number] Director: Armando Zamora M.D. Protein,Urine 100 mg/dL Normal [facility] Comment on above: Performed By: #### P REGUR, UIC ####Unless otherwise noted, all testing performed by [address] [phone]: [id number] Director: Armando Zamora M.D. RBC LM.HPF #/area (Urine sed) 5-10 Abnormal 0-3+;NS [facility] Comment on above: Performed By: #### P REGUR, UIC ####Unless otherwise noted, all testing performed by [address] [phone]: [id number] Director: Armando Zamora M.D. Specific Fowler,Urine 1.025 Normal 1.003-1.029 [facility] Comment on above: Performed By: #### P REGUR, UIC ####Unless otherwise noted, all testing performed by [address] [phone]: [id number] Director: Armando Zamora M.D. Squamous Epithelial 0-3 Normal 0-3+;NS [facility] Comment on above: Performed By: #### P REGUR, UIC ####Unless otherwise noted, all testing performed by [address] [id number]: [id number] Director: Armando Zamora M.D. Urobilinogen,Urine 0.2 EU/dL Normal 0.2 [facility] Comment on above: Performed By: #### P REGUR, UIC ####Unless otherwise noted, all testing performed by [address] [phone]: [id number] Director: Armando Zamora M.D. WBC LM.HPF #/area (Urine sed) Too Numerous to Count Abnormal 0-3+;3-5+;NS [facility] Comment on above: Performed By: #### P REGUR, UIC ####Unless otherwise noted, all testing performed by [address] [place] [phone]: [id number] Director: Armando Zamora M.D. ED NOTEon 06-25-2018 [facility] ED PROVIDERon 06-25-2018 [facility] ED NOTEon 06-17-2018 [facility] ED NOTEon 06-16-2018 [facility] ED PROVIDERon 06-16-2018 [facility] Encounters Encounter Date Encounter Type Care Provider Facility Start: 06-05-2023 End: 06-05-2023 ambulatory ADWOA [facility] Start: 12-09-2022 End: 12-10-2022 ambulatory [facility] Start: 10-13-2022 End: 10-13-2022 Emergency department patient visit ANASTACIA FISHMAN [facility] Start: 04-10-2022 End: 04-11-2022 Emergency department patient visit [facility] Start: 06-07-2021 End: 06-11-2021 ambulatory [facility] Start: 05-18-2021 End: 05-22-2021 ambulatory [facility] Start: 04-20-2021 End: 04-24-2021 ambulatory [facility] Start: 03-16-2021 End: 03-20-2021 ambulatory [facility] Start: 11-02-2020 End: 11-06-2020 ambulatory [facility] Start: 06-28-2018 End: 06-29-2018 Patient encounter Crescencio Reed Facility:[facility] Start: 06-25-2018 End: 06-25-2018 Emergency department patient visit THALIA HAMM [facility] Start: 06-16-2018 End: 06-17-2018 Emergency department patient visit HYACINTH ZIMMERMAN [facility] Start: 09-05-2017 End: 09-05-2017 Ambulatory Justin Vinson Facility:[facility] Start: 08-05-2017 End: 08-06-2017 Ambulatory [facility] Facility:[facility] Payers Date Payer Category Payer Unknown [id number] 2020 Medicaid [id number] 2020 Medicaid [id number] 2017 Unknown 1985 Unknown [id number] 2.16. [id number] 1986 Unknown [id number] 2.16. [id number] 1986 Unknown [id number] 2.16. [id number] 1986 Unknown [id number] 2.16. [id number] 1986 Unknown [id number] 2.16. [id number] 1986 Unknown [id number] 2.16. [id number] 1986 Unknown [id number] 2.16. [id number] 1986 Unknown [id number] 2.16. [id number] 1986 Unknown [id number] 2.16. [id number] 1986 Unknown [id number] 2.16. [id number] Self-pay [id number] Discharge summary note 03-15-2021 Note Date & Type Note Facility 03-15-2021 Note [facility] Medical Records Department [address] [place] [address] Discharge Summary 03/15/21 0934 MR#: [id number] Acct: [id number] Name: JUDITH BLOCK ZOHAIB Rep #: [id number] : 1985 35 From: Camacho Verma MD PCP: CASSIA ARAUJO Status:ADM IN Location: [facility] WR038-4 Providers Date of Admission: 03/12/21 Primary Care [...] for stabilization of alcohol withdrawal symptoms.??? 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 Patient [...] Acute alcohol w (more content not included)... [facility] Clinical Note 03-13-2021 Note Date & Type Note Facility 03-13-2021 Note [facility] Medical Records Department [address] [place] [address] History Physical Exam 03/12/212230 MR#: [id number] Acct: [id number] Name: JUDITH BLOCK Rep #: [id number] : 1985 35 From: Damaris RIOJASC PCP: CASSIA ARAUJO Status:ADM IN Location: [place] YH079-7 HPI - General General Date of Admission: [...] 8% beers. Patient denies any medical history. ON LICENSE OF [facility] Medical History (Updated 03/12/21 @ [...] % (Auto) 50.6 Lymph % (Auto) 39.2 [place] % (Auto) 9.2 Eos % (Auto) 0.4 [...] (Auto) Neut % (Auto) Lymph % (Auto) [place] % (Aut (more content not included)... [facility] Summary Purpose Family History No Family [...] section and content) DATE CREATED AUTHOR 04/21/2018 [facility] DATE CREATED AUTHOR AUTHOR'S ORGANIZ ATION 06/28/2018 [facility] DATE CREATED AUTHOR AUTHOR'S ORGANIZ ATION 08/28/2018 [facility] DATE CREATED AUTHOR AUTHOR'S ORGANIZ ATION 07/19/[address] [facility] DATE CREATED AUTHOR AUTHOR'S ORGANIZ ATION 06/11/[address] [facility] DATE CREATED AUTHOR AUTHOR'S ORGANIZ ATION 12/09/2021 [facility] DATE CREATED AUTHOR AUTHOR'S ORGANIZ ATION 12/28/2022 [facility] DATE CREATED AUTHOR AUTHOR'S ORGANIZ ATION 12/28/2022 [facility] DATE CREATED AUTHOR AUTHOR'S ORGANIZ ATION 06/06/2023 [facility] Care FOR RECORDS PERTAINING TO PATIENTS [...] BE BASED ON THE PRIMARY CLINICAL RECORDS. [facility]. provides no warranty or guarantee of the accuracy or completeness of information in this document.
[2025-04-16 20:41] LABS: Mucous, Urine 0 SEEN /hpf (<or=2+); Red Blood Cells-Urine 0 SEEN /hpf (0-5)
[2025-04-16] MEDS: 0.9% Normal Saline (1000mL) 1,000 ML 150 ML IV (21:11)
[2025-04-16] MEDS: 0.9% Saline Lock 10 ML Syringe IV (21:11)
[2025-04-16] MEDS: Phenobarbital 32.4 MG Tablet 64.8 MG PO (21:12)
[2025-04-16] MEDS: Ondansetron 8 MG Tablet PO (21:15)
[2025-04-16 21:18] LABS: Color, Urine Yellow (Yellow); Glucose, Dipstick Normal (Normal); Ketone-Dipstick Negative (Negative); Leukocyte Esterase-Dipstick Negative /ul (Negative); Nitrite-Dipstick Negative (Negative); Occult Blood-Urine 150 /ul (Negative); Protein-Dipstick 15 mg/dl (Negative); Specific Gravity, Urine 1.005 (1.002-1.030); Urine Bilirubin Dipstick Negative (Negative); Urine Clarity Clear (Clear); Urine Urobilinogen Normal (Normal); Urine pH 6.5 (5.0 - 8.0)
[2025-04-16 21:23] LABS: Bacteria 3+ /hpf (None Seen); Squamous Epithelial Cells - UA 0-5 SEEN /hpf (5-10); White Blood Cells 0-5 SEEN /hpf (0-5)
[2025-04-16 22:40] LABS: Magnesium 2.2 mg/dL (1.5-2.2)
[2025-04-16 22:51] LABS: Hemoglobin A1c 5.2 % (<=5.6)
[2025-04-16] MEDS: traZODone 50 MG Tablet 75 MG PO (22:58)
[2025-04-17] MEDS: Phenobarbital 32.4 MG Tablet 64.8 MG PO ×6 (00:08→20:29)
[2025-04-17] MEDS: 0.9% Normal Saline (1000mL) 1,000 ML 150 ML IV (03:57)
[2025-04-17] MEDS: Ondansetron 8 MG Tablet PO (04:00)
[2025-04-17 04:19] VITALS: BP 142/99; PULSE 94; RESP 16; TEMP 36.6; TEMP 36.7; O2SAT 92
[2025-04-17 05:33] VITALS: BMI 27.1
[2025-04-17 07:46] LABS: Absolute Lymphocyte Count 1.53 X10^3/uL (0.83-4.51); Absolute Neutrophil Count 4.7 X10^3/uL (2.0-7.7); Basophil# 0.04 X10^3/uL; Basophil% 0.6 % (0-1); Eosinophil# 0.05 X10^3/uL; Eosinophils% 0.7 % (0-5); Hematocrit 39.8 % (37-47); Hemoglobin 13.8 g/dL (12.0-15.0); Lymphocyte # 1.53 X10^3/ul (0.83-4.51); Lymphocyte % 22.3 % (19-41); Mean Corp Hgb Conc 34.7 g/dL (32-36); Mean Corpuscular Hgb 33.7 pg (27.0-32.0); Mean Corpuscular Volume 97.1 fL (81-99); Mean Platelet Vol. 9.1 fl (6.2-12.0); Monocyte# 0.49 X10^3/uL; Monocyte% 7.1 % (0-10); NRBC Flagged by Analyzer 0 % (0-5); Neutrophil # 4.74 X10^3/uL (2.7-7.7); Platelet Count 212 K/mm3 (150-450); RBC Distribution Width CV 12.5 % (11.6-14.6); RBC Distribution Width SD 44.5 fl (35.1-43.9); White Blood Count 6.9 K/mm3 (4.4-11.0)
[2025-04-17] MEDS: Escitalopram Oxalate 10 MG Tablet PO (08:29)
[2025-04-17] MEDS: Thiamine Hydrochloride 100 MG Tablet PO (08:29)
[2025-04-17] MEDS: Gabapentin 300 MG Capsule PO (08:29)
[2025-04-17] MEDS: Folic Acid 1 MG Tablet PO (08:29)
[2025-04-17] MEDS: Ensure Plus High Protein 120 ML LIQUID PO ×2 (08:30→12:10)
[2025-04-17 08:31] LABS: Alcohol, Blood (Medical)-Serum < 10.1 mg/dL (<=10.0)
[2025-04-17 08:42] VITALS: BP 148/98; PULSE 78; RESP 16; TEMP 36.6; O2SAT 97
[2025-04-17 08:42] LABS: AST(SGOT) 108 U/L (<=31); Alanine Aminotransfer ALT/SGPT 33 U/L (<=34); Albumin, Serum 3.8 g/dL (3.5-5.0); Alkaline Phosphatase 90 U/L (35-104); Anion Gap 13 (5-15); BUN 5 mg/dL (4-19); BUN/Creat Ratio 5.3 RATIO (10-20); Calcium,Total 7.9 mg/dL (7.6-11.0); Carbon Dioxide 23.9 mmol/L (21.0-32.0); Chloride 102 mmol/L (98-108); Creatinine, Serum 0.88 mg/dL (0.70-1.20); EST Glomerular Filtration Rate 87 (>60); Estimated Creatinine Clearance 81.01 ml/min (50-250); Globulin 3.7 g/dL (2.2-4.2); Glucose 85 mg/dL (70-99); Phosphorus 3.3 mg/dL (2.7-4.5); Potassium 3.8 mmol/L (3.3-5.1); Protein, Total 7.5 g/dL (5.9-8.4); Sodium Level 139 mmol/L (133-145); Total Bilirubin 0.84 mg/dL (0.00-1.30)
[2025-04-17 15:38] VITALS: BP 148/96; PULSE 82; RESP 16; TEMP 36.9; O2SAT 96
--- NOTE | 2025-04-17 17:35 | PCM.PN.HOSP ---
Reason for Visit Reason for Visit: Diagnoses Overweight (04/16/25) Alcohol dependence with intoxication, uncomplicated (04/16/25) Alcohol use, unspecified with intoxication, uncomplicated (04/16/25) Major depressive disorder, single episode, unspecified (04/16/25) Anxiety disorder, unspecified (04/16/25) Tobacco use (04/16/25) Subjective Subjective Patient was seen and examined today, she feels a little bit anxious but otherwise has no complaints. Objective Data Objective Data Vital Signs: Vital Signs Temp Pulse Resp BP Pulse Ox O2 Del Method 98.4 F 82 16 148/96 H 96 Room Air 04/17/25 15:38 04/17/25 15:38 04/17/25 15:38 04/17/25 15:38 04/17/25 15:38 04/17/25 15:38 Oxygen Delivery Method Room Air Weight: 69.4 kg Body Mass Index (BMI) 27.1 Intake & Output: Intake and Output for Last 24 Hours 04/15/25 04/16/25 04/17/25 23:59 23:59 23:59 Intake Total 600 / 600 2500 / 2500 Balance 600 / 600 2500 / 2500 Medical Nutrition Assessment Dietitian: Malnutrition Criteria Met Start: 04/17/25 13:52 Freq: Status: Active Protocol: Document 04/17/25 13:52 SB (Rec: 04/17/25 13:53 SB [id number]) Nutrition Malnutrition Evidence of Yes Malnutrition Exists Malnutrition (severe Chronic ): Evidenced By Suboptimal Energy Intake (Moderate),Weight Loss ( Moderate) Clinical Problem Chronic Disease or Condition Related Malnutrition Etiology moderate related to inadequate energy intake and alcohol abuse Signs/Symptoms as evidenced by PO meeting <75% of estimated nutrition needs x 1 week and 10% unintentional weight loss x 6 months. Status Active Problem Recommendation Dietitian Continue regular diet and 120ml EPHP TID with medpass. Recommendations/ Changes Lab / Micro Data 04/17/25 07:35 04/17/25 07:35 Labs: Laboratory Results - last 24 hr 04/16/25 17:55: WBC 7.7, RBC 4.41, Hgb 15.0, Hct 41.6, MCV 94.3, MCH 34.0 H, MCHC 36.1 H, RDW Std Deviation 44.3 H, RDW Coeff of Tony 12.6, Plt Count 274, MPV 9.0, Immature Gran % (Auto) 0.100, Neut % (Auto) 67.0, Lymph % (Auto) 25.5, [place] % (Auto) 6.9, Eos % (Auto) 0.1, Baso % (Auto) 0.4, Absolute Neuts (auto) 5.1, Absolute Lymphs (auto) 1.96, Nucleated RBC % 0, PT 13.2, INR 1.0, Sodium 137, Potassium 3.5, Chloride 95 L, Carbon Dioxide 22.9, Anion Gap 19 H, BUN 6, Creatinine 0.98, Estim Creat Clear Calc 73.19, Est GFR (MDRD) Non-Af 76, BUN/Creatinine Ratio 5.8 L, Glucose 180 H, Hemoglobin A1c 5.2, Calcium 8.5, Magnesium 2.2, Total Bilirubin 0.44, AST 69 H, ALT 26, Alkaline Phosphatase 100, Total Protein 8.4, Albumin 4.2, Globulin 4.2, Albumin/Globulin Ratio 1.0, Serum , Qual NEGATIVE, Ethyl Alcohol 285.0 H 04/16/25 18:27: Urine Color Yellow, Urine Clarity Clear, Urine pH 6.5, Ur Specific [place] 1.005, Urine Protein 15 H, Urine Glucose (UA) Normal, Urine Ketones Negative, Urine Occult Blood 150 H, Urine Nitrite Negative, Urine Bilirubin Negative, Urine Urobilinogen Normal, Ur Leukocyte Esterase Negative, Urine RBC 0 SEEN, Urine WBC 0-5 SEEN, Ur Squamous Epith Cells 0-5 SEEN, Urine Bacteria 3+, Urine Mucus 0 SEEN, Urine Opiates Screen NEGATIVE, U Buprenorphine Qual NEGATIVE, Ur Oxycodone Screen NEGATIVE, Urine Methadone Screen NEGATIVE, Urine Fentanyl Screen NEGATIVE, Ur Barbiturates Screen NEGATIVE, Ur Phencyclidine Scrn NEGATIVE, Ur Amphetamines Screen NEGATIVE, U Benzodiazepines Scrn NEGATIVE, Urine Cocaine Screen NEGATIVE, U Cannabinoids Screen NEGATIVE 04/17/25 07:35: WBC 6.9, RBC 4.10 L, Hgb 13.8, Hct 39.8, MCV 97.1, MCH 33.7 H, MCHC 34.7, RDW Std Deviation 44.5 H, RDW Coeff of Tony 12.5, Plt Count 212, MPV 9.1, Immature Gran % (Auto) 0.300, Neut % (Auto) 69.0, Lymph % (Auto) 22.3, [place] % (Auto) 7.1, Eos % (Auto) 0.7, Baso % (Auto) 0.6, Absolute Neuts (auto) 4.7, Absolute Lymphs (auto) 1.53, Nucleated RBC % 0, Sodium 139, Potassium 3.8, Chloride 102, Carbon Dioxide 23.9, Anion Gap 13, BUN 5, Creatinine 0.88, Estim Creat Clear Calc 81.01, Est GFR (MDRD) Non-Af 87, BUN/Creatinine Ratio 5.3 L, Glucose 85, Calcium 7.9, Phosphorus 3.3, Total Bilirubin 0.84, AST 108 H, ALT 33, Alkaline Phosphatase 90, Total Protein 7.5, Albumin 3.8, Globulin 3.7, Albumin/Globulin Ratio 1.0, TSH 2.840, Ethyl Alcohol < 10.1 Physical Exam Const alert, oriented x3 and no apparent distress General Appearance: cooperative, well kempt and well developed Orientation / Consciousness: awake, oriented to person, oriented to place and oriented to time HEENT normocephalic, head/scalp atraumatic and moist oral mucous membranes Eyes PERRL, EOMs intact bilaterally and conjunctivae normal Neck supple, no JVD, thyroid normal and no carotid bruits General: trachea midline Resp normal respiratory effort, no retractions, no use of accessory muscles and clear to auscultation bilaterally Auscultation: Negative for rales, rhonchi or wheezes Cardio regular rate, regular rhythm, S1 normal heart sound, S2 normal heart sound, no murmurs, no rub and no gallops GI normal to inspection, nondistended, normoactive bowel sounds, soft to palpation, non-tender and non-distended Extremity no clubbing, cyanosis or edema Skin no rashes or lesions noted General Skin Exam: no breakdown Neuro oriented x3, CN's II-XII intact bilaterally, moves all extremities, no focal motor deficits and no sensory deficits noted Sensorium / Orientation: awake and alert Speech: speech normal Psych affect normal Assessment & Plan Assessment/Plan (1) Alcohol withdrawal: PLAN: Plan 1. Alcohol use disorder with withdrawal-patient is to remain on her current medications, she will be seen by addiction social service liaison tomorrow #2 chronic depression-patient is on Lexapro and trazodone Total clinical time spent by myself addressing the patient's medical issues, reviewing all of her data, and collaborating with patient's care team: 25 minutes Charges/Coding Visit Charges Inpatient E&M: 52606 Subs Hosp L1
[2025-04-17 20:27] VITALS: BP 142/91; PULSE 77; RESP 16; TEMP 36.9; O2SAT 98
[2025-04-17] MEDS: traZODone 50 MG Tablet 75 MG PO (22:06)
[2025-04-18] MEDS: Phenobarbital 32.4 MG Tablet 64.8 MG PO ×3 (00:22→08:23)
[2025-04-18 04:24] VITALS: BP 136/90; PULSE 73; RESP 16; TEMP 36.7; O2SAT 100
[2025-04-18 04:26] VITALS: BMI 27.0
[2025-04-18 04:38] LABS: Phosphorus 3.3 mg/dL (2.7-4.5)
[2025-04-18] MEDS: Thiamine Hydrochloride 100 MG Tablet PO (08:23)
[2025-04-18] MEDS: Escitalopram Oxalate 10 MG Tablet PO (08:23)
[2025-04-18] MEDS: Folic Acid 1 MG Tablet PO (08:23)
[2025-04-18 09:01] VITALS: BP 127/92; PULSE 70; RESP 16; TEMP 36.6; O2SAT 97
--- NOTE | 2025-04-18 11:51 | PCM.DC ---
Discharge Instructions Diet Discharge Diet: No restrictions DC O2, CPAP, BIPAP needs Home O2 Discharge instructions: No Dressing / Incision Discharge Activity: Return to Normal Activity Weight Bearing Status: Full weight bearing Follow Up Care Test Results: Test results from this visit will be discussed in further detail at your follow-up appointment, if applicable. Discharge Plan Admission Admit Date/Time: 04/16/25 19:54 Primary Reason for Your Visit: Alcohol detox Attending Provider: Gigi Bowling Primary Care Provider: THALIA TRAVIS Consulting Providers: Dony Enriquez Instructions Additional Instructions / Restrictions: Follow-up with [place] within a month Discharge Orders/Prescriptions Prescriptions: Continued escitalopram oxalate [Lexapro] 10 mg tablet 10 mg PO DAILY trazodone 50 mg tablet 75 mg PO QHS Referrals / Follow Up: THALIA TRAVIS [Other] THALIA TRAVIS [Other] Disposition Disposition (needs filled in before D/C Order can be placed): Home, Self Care
--- NOTE | 2025-04-18 11:53 | PCM.DC.SUM ---
Providers Date of Admission: 04/16/25 Date of Discharge: 04/18/25 Primary Care Physician: THALIA TRAVIS Reason For Visit: ACUTE ETOH INTOXICATION IN THE SETTING OF CHRONIC Diagnosis Discharge Diagnosis (1) Alcohol withdrawal: Status: Acute Code(s): F10.939 - Alcohol use, unspecified with withdrawal, unspecified Plan 1. Alcohol use disorder with withdrawal-patient is to remain on her current medications, she will be seen by addiction social insurance adviser tomorrow #2 chronic depression-patient is on Lexapro and trazodone Total clinical time spent by myself addressing the patient's medical issues, reviewing all of her data, and collaborating with patient's care team: 25 minutes Medications at Discharge Home Medications escitalopram oxalate 10 mg tablet (Lexapro) 10 mg PO DAILY 04/16/25 trazodone 50 mg tablet 75 mg PO QHS 04/16/25 Hospital Course Operations None Procedures None Summary of Care Provided Minutes Spent on Discharge: 30 Hospital Course: This patient was seen in the emergency room at [facility] requesting services for alcohol substance use disorder. Patient's labs were remarkable for a glucose of 180, patient's talk screen was negative, ethyl alcohol level was elevated at 285. Patient was admitted to [place] [id number], she was seen by addiction social insurance adviser, there was no episodes of DTs during her hospitalization. On 04/18/2025, patient was administered a dose of IM Vivitrol, she was seen and examined on that date: On examination she appeared in good health and spirits, she does not appear to be in any distress. Vital signs as documented. Skin warm and dry and without overt rashes. Neck without JVD, thyroid appears normal, trachea is midline, neck is supple. Lungs clear, normal air movement was noted. Heart exam notable for regular rhythm, normal sounds and absence of murmurs, rubs or gallops. Abdomen unremarkable and without evidence of organomegaly, masses, or abdominal aortic enlargement, bowel sounds are present in all 4 quadrants, no abdominal tenderness was noted. Extremities nonedematous, no cyanosis was noted, no clubbing was noted. Neuro: Cranial nerves II through XII are grossly intact, no focal motor deficits were noted, sensation to light touch and pinprick is intact, motor exam 5/5 throughout. Psych: Patient is alert and oriented x3, she does not appear anxious or depressed, she does not appear agitated. Patient was discharged on 04/18/2025 in stable condition she was to follow-up with an outpatient detox program Medical Records Data Medical Nutrition Assessment Dietitian: Malnutrition Criteria Met Start: 04/17/25 13:52 Freq: Status: Active Protocol: Document 04/17/25 13:52 SB (Rec: 04/17/25 13:53 SB [id number]) Nutrition Malnutrition Evidence of Yes Malnutrition Exists Malnutrition (severe Chronic ): Evidenced By Suboptimal Energy Intake (Moderate),Weight Loss ( Moderate) Clinical Problem Chronic Disease or Condition Related Malnutrition Etiology moderate related to inadequate energy intake and alcohol abuse Signs/Symptoms as evidenced by PO meeting <75% of estimated nutrition needs x 1 week and 10% unintentional weight loss x 6 months. Status Active Problem Recommendation Dietitian Continue regular diet and 120ml EPHP TID with medpass. Recommendations/ Changes Weight / BMI Weight Weight: 69.2 kg Body Mass Index (BMI) 27.0 ABG / Lab / Microbiology Data 04/17/25 07:35 04/17/25 07:35 Laboratory: Laboratory Results - last 24 hr 04/18/25 03:50: Phosphorus 3.3 D/C Instructions Discharge Diet: No restrictions Weight Bearing Status: Full weight bearing DC O2, CPAP, BIPAP Needs Home O2 Discharge instructions: No Meaningful Use Info Meaningful Use Meaningful Use Diagnoses (Choose all that apply): None applicable Ischemic Stroke Statin Dosing Therapy Reference: STATIN DOSE THERAPY REFERENCE: * Patients > 75 years receive moderate or high dose statin therapy. * Patients 75 years or YOUNGER should receive HIGH intensity statin dose unless contraindicated. You will be required to document reason for non-treatment if statin daily dose does not meet guidelines. HIGH DOSE STATIN THERAPY DAILY Atorvastatin > than or = to 40 mg Rosuvastatin > than or = to 20 mg Amlodipine + Atorvastatin > than or = to 2.5/40 mg Ezetimibe + Simvastatin 10/80 mg Simvastatin 80mg Discharge Plan Admission Admit Date/Time: 04/16/25 19:54 Primary Reason for Your Visit: Alcohol detox Attending Provider: Gigi Bowling Primary Care Provider: THALIA TRAVIS Consulting Providers: Dony Enriquez Instructions Additional Instructions / Restrictions: Follow-up with [place] within a month Discharge Orders/Prescriptions Prescriptions: Continued escitalopram oxalate [Lexapro] 10 mg tablet 10 mg PO DAILY trazodone 50 mg tablet 75 mg PO QHS Referrals / Follow Up: THALIA TRAVIS [Other] THALIA TRAVIS [Other] Disposition Disposition (needs filled in before D/C Order can be placed): Home, Self Care Charges/Coding Visit Charges Inpatient E&M: 43479 Disch Hosp
--- NOTE | 2025-04-18 12:12 | PHA.DC.MR.R ---
Pharmacy [place] [facility] has performed discharge medication reconciliation for this patient. The patient's discharge medication list was reviewed for discrepancies and discrepancies were resolved. Medications at Discharge Home Medications escitalopram oxalate 10 mg tablet (Lexapro) 10 mg PO DAILY 04/16/25 trazodone 50 mg tablet 75 mg PO QHS 04/16/25
--- NOTE | 2025-04-18 12:15 | ADDICTION ---
This remote mortgage underwriter met with PT to conduct ASAM, MSE, AUDIT assessments and to plan for d/c. PT A+Ox4 and participated appropriately. All assessments completed. PT to f/u with [facility] for MAT services and will look for a therapist to meet with. PT did not report a need for transportation upon d/c. Pt will receive Vivitrol prior to D/C.
[2025-04-18] MEDS: Naltrexone Microspheres 380 MG SYRINGE IM (13:40)
[2025-04-18] MEDS: Vivitrol ID Card 1 EACH MC (13:40)
[2025-04-18] MEDS: Vivitrol Administration Needles 1 EACH MC (13:40)
== END 2025-04-18 14:49 | disposition home or self-care (01) | DRG 896 ==
LOC: ED 19:32 → MS3 20:07
PROVIDERS: Admitting Provider Internal Medicine; Emergency Provider Emergency Medicine; Referring Provider Internal Medicine; Visit Provider Internal Medicine
DX: F10.239 Alcohol dependence with withdrawal, unspecified (principal); E43 Unspecified severe protein-calorie malnutrition; F32.A Depression, unspecified; F17.210 Nicotine dependence, cigarettes, uncomplicated; F41.9 Anxiety disorder, unspecified; F17.290 Nicotine dependence, other tobacco product, uncomplicated; E66.3 Overweight; Z68.27 Body mass index [BMI] 27.0-27.9, adult; Z79.899 Other long term (current) drug therapy; Y90.8 Blood alcohol level of 240 mg/100 ml or more
CPT/HCPCS: 36415; 80053; 80307; 81001; 82077; 83036; 83735; 84100; 84443; 84703; 85025; 85610; 97802; 99284; A4216